=== PATIENT | female | born 1960 ===

== ENCOUNTER → 2020-06-08 13:13 | Outpatient (BNVA) | payer OTHER, SELFPAY | PROVIDERS: PCP Internal Medicine; Visit Provider Internal Medicine Endocrinology, Diabetes & Metabolism | DX: E11.9 Type 2 diabetes mellitus without complications (principal); E11.21 Type 2 diabetes mellitus with diabetic nephropathy; E11.22 Type 2 diabetes mellitus with diabetic chronic kidney disease; I12.9 Hypertensive chronic kidney disease with stage 1 through stage 4 chronic kidney disease, or unspecified chronic kidney disease; N18.30 Chronic kidney disease, stage 3 unspecified; E66.9 Obesity, unspecified; Z68.35 Body mass index [BMI] 35.0-35.9, adult | CPT/HCPCS: 82947; 99214 ==

== ENCOUNTER 2020-07-02 12:10 | Emergency (ER) | payer OTHER, SELFPAY ==
[2020-07-02 12:26] VITALS: BP 116/67; PULSE 88; RESP 18; TEMP 37; O2SAT 99; BMI 34.7
--- NOTE | 2020-07-02 13:15 | ED.URI ---
HPI - URI/Sore Throat General Chief Complaint: Upper Respiratory Symptoms Stated Complaint: covid swab Time Seen by Provider: 07/02/20 13:15 Source: patient Mode of arrival: ambulatory Limitations: no limitations History of Present Illness MD elicited complaint: fever and other (diarrhea) Pertinent past history: other ( has covid) Onset (ago): day(s) (3) Consistency: constant Severity: moderate Able to tolerate fluids by mouth: Yes Exacerbating factors: nothing Relieving factors: nothing Context: sick contacts Associated symptoms: fever, chills, myalgias, headache and diarrhea Treatments prior to arrival: none Related Data Home Medications Medication Instructions Recorded Confirmed loratadine 10 mg tablet 10 mg PO DAILY 06/08/20 06/08/20 Previous Rx's Medication Instructions Recorded cholecalciferol (vitamin D3) 50 50 mcg PO DAILY 30 Days #30 cap 06/08/20 mcg (2,000 unit) capsule dapagliflozin 10 mg-metformin ER 1 tab PO DAILY 30 Days #30 ea 06/08/20 1,000 mg tablet,extended release 24hr lisinopril 10 mg tablet 10 mg PO DAILY 30 Days #30 tab 06/08/20 pioglitazone 45 mg tablet 45 mg PO DAILY 30 Days #30 tab 06/08/20 pravastatin 40 mg tablet 40 mg PO DAILY 30 Days #30 tab 06/08/20 Allergies Allergy/AdvReac Type Severity Reaction Status Date / Time Penicillins Allergy Weakness Verified 07/02/20 12:31 Review of Systems Review of Systems: Constitutional : positive Fever, positive Chills, positive fatigue, positive Malaise ENT/Mouth : no sore throat, positive runny nose Eyes: No Discharge Cardiovascular : No Chest Pain, No SOB Respiratory : No Cough, No Sputum Gastrointestinal : No Nausea, No Vomiting, pos Diarrhea Genitourinary : No Dysuria, No Urinary Frequency Musculoskeletal : positive Myalgia Skin : No rash Neuro : No Headache PMFSH Past Medical History Attestation statement: The following information was validated with the patient. Medical History CKD (chronic kidney disease) stage 3, GFR 30-59 ml/min Diabetes type 2, controlled Diabetic nephropathy associated with type 2 diabetes mellitus Dyslipidemia Hypertension Obesity (BMI 30-39.9) Vitamin D deficiency Surgical History Hx of colonoscopy Hx of knee surgery Hx of tubal ligation Family History Family History (Updated 06/08/20 @ 12:03 by Patricia Drake LPN) Father No problems noted. Mother Cancer Social History Social History (Updated 07/02/20 @ 13:21 by Demi Sepulveda DO) Smoking Status: Never smoker Advance Directives: No Advance Directives Information Provided: No Physical Exam Vital Signs: Vital Signs: Last Vital Signs Temp 98.6 F 07/02/20 12:26 Pulse 88 07/02/20 12:26 Resp 18 07/02/20 12:26 BP 116/67 07/02/20 12:26 Pulse Ox 99 07/02/20 12:26 Body Mass Index 34.7 Appearance: Alert. Oriented X3. No acute distress. Eyes: Pupils equal, round and reactive to light. Neck: Normal inspection. Neck supple. Respiratory: No respiratory distress. Abdomen: Soft and nontender. Skin: Skin warm and dry. Normal skin color. Normal skin turgor. Neuro: Oriented X 3. No motor deficit. No sensory deficit. MDM - URI/Sore Throat MDM Narrative Medical decision making narrative: 59 yo with DM here with fevers/diarrhea not toxic, no hypoxia can tolerate PO, has COVID and the patient wants a test, given precautions to return Discharge Plan Discharge Clinical Impression: COVID-19 Patient Disposition: Home, Self-Care Instructions: COVID-19 (Coronavirus Disease 2019) (ED) Additional Instructions: return to ED for any worsening symptoms or concerns you were tested for COVID we will call you with results in 2 to 4 days, wear a mask, socially distance Prescriptions: No Action loratadine 10 mg tablet 10 mg PO DAILY RF: 0 dapagliflozin-metformin 10-1,000 mg tablet, IR - ER, biphasic 24hr 1 tab PO DAILY 30 Days Qty: 30 RF: 6 pioglitazone 45 mg tablet 45 mg PO DAILY 30 Days Qty: 30 RF: 6 lisinopril 10 mg tablet 10 mg PO DAILY 30 Days Qty: 30 RF: 6 pravastatin 40 mg tablet 40 mg PO DAILY 30 Days Qty: 30 RF: 6 cholecalciferol (vitamin D3) 50 mcg (2,000 unit) capsule 50 mcg PO DAILY 30 Days Qty: 30 RF: 6
== END 2020-07-02 13:42 | disposition home or self-care (01) ==
PROVIDERS: Emergency Provider Emergency Medicine; PCP Internal Medicine
DX: U07.1 COVID-19 (principal); R50.9 Fever, unspecified; Z79.899 Other long term (current) drug therapy
CPT/HCPCS: 99283; U0003

== ENCOUNTER 2020-07-08 20:45 | Emergency (ER) | payer OTHER, SELFPAY ==
[2020-07-08 22:51] VITALS: BP 143/68; PULSE 113; RESP 18; TEMP 37.7; O2SAT 95; BMI 36.2
--- NOTE | 2020-07-08 23:01 | ED_ITS ---
HPI - SOB/Dyspnea General Chief Complaint: Dyspnea Stated Complaint: SOB Time Seen by Provider: 07/08/20 22:49 History of Present Illness HPI Narrative: patient is a 59-year-old female complaining of coughing upper respiratory symptoms that is been ongoing for about a week. Tested positive for coronavirus. Patient presented today with having increasing coughing generalized malaise. Patient from home. History of chronic renal disease history of diabetes. positive fever. Positive generalized malaise. Has been also has similar symptoms. No diarrhea. Related Data Home Medications Medication Instructions Recorded Confirmed loratadine 10 mg tablet 10 mg PO DAILY 06/08/20 06/08/20 Previous Rx's Medication Instructions Recorded cholecalciferol (vitamin D3) 50 50 mcg PO DAILY 30 Days #30 cap 06/08/20 mcg (2,000 unit) capsule dapagliflozin 10 mg-metformin ER 1 tab PO DAILY 30 Days #30 ea 06/08/20 1,000 mg tablet,extended release 24hr lisinopril 10 mg tablet 10 mg PO DAILY 30 Days #30 tab 06/08/20 pioglitazone 45 mg tablet 45 mg PO DAILY 30 Days #30 tab 06/08/20 pravastatin 40 mg tablet 40 mg PO DAILY 30 Days #30 tab 06/08/20 Allergies Allergy/AdvReac Type Severity Reaction Status Date / Time Penicillins Allergy Weakness Verified 07/02/20 12:31 Review of Systems Review of Systems: Constitutional: No Weight loss, Positive Fever, No Chills, No Night Sweats, No Fatigue, No Malaise ENT/Mouth: No Hearing loss, No Ear Pain, No Nasal Congestion, No Sinus Pain, No Hoarseness, No sore throat, No Rhinorrhea, No Swallowing Difficulty Eyes: No Eye Pain, No Swelling, No Redness, No Foreign Body, No Discharge, No Vision Changes Cardiovascular: No Chest Pain, positive SOB, No Dyspnea on Exertion, No Orthopnea, No Edema, No Palpitations Respiratory: positive Cough, No Sputum, No Wheezing, No Smoke Exposure, No Dyspnea Gastrointestinal: No Nausea, No Vomiting, No Diarrhea, No Constipation, No abdominal Pain, No Hematochezia, No Melena Genitourinary: no irregular bleeding, No Dysuria, No Urinary Frequency, No Hematuria, No Urinary Incontinence, No Urgency, No Flank Pain, No Urinary Flow Changes, No Hesitancy Musculoskeletal: No joint pain, No Myalgias, No Joint Swelling Skin: No Skin Lesions, No rash Neuro: No Weakness, No Numbness, No Paresthesias, No Loss of Consciousness, No Dizziness, No Headache Psych: No Anxiety/Panic, No Depression, No SI/HI/AH/VH, No Social Issues, Heme/Lymph: No Bruising, No Bleeding,No Lymphadenopathy Endocrine: No Polyuria, No Polydipsia, No Temperature Intolerance [facility] Past Medical History Attestation statement: The following information was validated with the patient. Medical History CKD (chronic kidney disease) stage 3, GFR 30-59 ml/min Diabetes type 2, controlled Diabetic nephropathy associated with type 2 diabetes mellitus Dyslipidemia Hypertension Obesity (BMI 30-39.9) Vitamin D deficiency Surgical History Hx of colonoscopy Hx of knee surgery Hx of tubal ligation Family History Family History (Updated 06/08/20 @ 12:03 by Patricia Drake LPN) Father No problems noted. Mother Cancer Social History Social History (Updated 07/02/20 @ 13:21 by Demi Sepulveda DO) Smoking Status: Never smoker Advance Directives: No Physical Exam Vital Signs: Vital Signs: Last Vital Signs Temp 101.1 F H 07/08/20 23:39 Pulse 116 H 07/08/20 23:39 Resp 32 H 07/08/20 23:39 BP 115/70 07/08/20 23:39 Pulse Ox 95 07/08/20 23:39 Body Mass Index 36.2 Appearance: Alert. Oriented X3. No acute distress. Eyes: Pupils equal, round and reactive to light. ENT: Pharynx normal. Neck: Normal inspection. Neck supple. No lymph nodes noted. No crepitus CVS: Normal heart rate and rhythm. Pulses normal. Normal S1 and S2 Respiratory: No respiratory distress. Breath sounds normal. No Wheezing. No rales Abdomen: Soft and nontender. No rigidity. No distention. good BS x4 Skin: Skin warm and dry. Normal skin color. Normal skin turgor. Extremities: No lower extremity edema. Neurovascular intact to all extremities. No Lacerations. No Rash Neuro: Oriented X 3. No motor deficit. No sensory deficit. Moving all extermities. No slurred speech MDM - SOB/Dyspnea MDM Narrative Medical decision making narrative: patient has Coronavirus with a heart rate of 113 low-grade fever. Will go ahead and give IV fluids. Will check electrolytes and monitor. On the positive side patient's O2 sat is 95% on room Lab Data Result diagrams: 07/08/20 23:56 07/08/20 23:56 Labs: Lab Results 07/08/20 07/08/20 07/08/20 Range/Units 23:56 23:56 23:56 WBC 7.7 (4.8-10.8) X10*3/uL RBC 4.52 (4.20-5.50) X10*6/uL Hgb 13.1 (12.0-16.0) g/dl Hct 39.9 (37-47) % MCV 88.3 (80-98) fL MCH 29.0 (27.0-33.0) pg MCHC 32.8 (31.0-35.0) g/dl RDW 13.7 (11.0-16.0) % Plt Count 246 (160-400) X10*3/uL MPV 10.0 (9.4-12.3) fL Immature Gran % (Auto) 0.5 H (0.0-0.4) % Neut % (Auto) 77.0 H (45-73) % Lymph % (Auto) 16.1 L (20-40) % [place] % (Auto) 6.3 (2-11) % Eos % (Auto) 0.0 (0-4) % Baso % (Auto) 0.1 (0-2) % Lymph # (Auto) 1.2 (1.2-4.9) X10*3/uL [place] # (Auto) 0.5 (0.1-1.2) X10*3/uL Eos # (Auto) 0.0 (0.0-0.4) X10*3/uL Baso # (Auto) 0.0 (0.0-0.2) X10*3/uL Abs Immat Gran (auto) 0.04 H (0.00-0.03) X10*3/uL Absolute Neuts (auto) 5.9 (2.0-8.3) X10*3/uL Absolute Nucleated RBC 0.000 (0.0-0.012) X10*3/uL Nucleated RBC % (auto) 0.0 (0.0-0.2) /100WBC Smear Tech's Comments VERIFIED Hold Blue Top SEE NOTE Sodium (135-145) mmol/L Potassium (3.3-5.1) mmol/l Chloride (96-108) mmol/L Carbon Dioxide (22-29) mmol/L Anion Gap (12-20) BUN (9-16) mg/dL Creatinine (0.5-1.4) mg/dL Estim Creat Clear Calc Estimated GFR Random Glucose (60-115) mg/dL Lactic Acid 1.0 (0.5-2.0) mmol/L Calcium (8.4-10.2) mg/dL 07/08/20 Range/Units 23:56 WBC (4.8-10.8) X10*3/uL RBC (4.20-5.50) X10*6/uL Hgb (12.0-16.0) g/dl Hct (37-47) % MCV (80-98) fL MCH (27.0-33.0) pg MCHC (31.0-35.0) g/dl RDW (11.0-16.0) % Plt Count (160-400) X10*3/uL MPV (9.4-12.3) fL Immature Gran % (Auto) (0.0-0.4) % Neut % (Auto) (45-73) % Lymph % (Auto) (20-40) % [place] % (Auto) (2-11) % Eos % (Auto) (0-4) % Baso % (Auto) (0-2) % Lymph # (Auto) (1.2-4.9) X10*3/uL [place] # (Auto) (0.1-1.2) X10*3/uL Eos # (Auto) (0.0-0.4) X10*3/uL Baso # (Auto) (0.0-0.2) X10*3/uL Abs Immat Gran (auto) (0.00-0.03) X10*3/uL Absolute Neuts (auto) (2.0-8.3) X10*3/uL Absolute Nucleated RBC (0.0-0.012) X10*3/uL Nucleated RBC % (auto) (0.0-0.2) /100WBC Smear Tech's Comments Hold Blue Top Sodium 138 (135-145) mmol/L Potassium 4.6 (3.3-5.1) mmol/l Chloride 102 (96-108) mmol/L Carbon Dioxide 22 (22-29) mmol/L Anion Gap 19 (12-20) BUN 16 (9-16) mg/dL Creatinine 1.08 (0.5-1.4) mg/dL Estim Creat Clear Calc 56.2 Estimated GFR 52 Random Glucose 121 H (60-115) mg/dL Lactic Acid (0.5-2.0) mmol/L Calcium 8.6 (8.4-10.2) mg/dL Discharge Plan Discharge Clinical Impression: COVID-19 Patient Disposition: Home, Self-Care Instructions: COVID-19 (Coronavirus Disease 2019) (ED) Additional Instructions: strict home quarantine until all symptom has resolved for 2 days. Prescriptions: No Action loratadine 10 mg tablet 10 mg PO DAILY RF: 0 dapagliflozin-metformin 10-1,000 mg tablet, IR - ER, biphasic 24hr 1 tab PO DAILY 30 Days Qty: 30 RF: 6 pioglitazone 45 mg tablet 45 mg PO DAILY 30 Days Qty: 30 RF: 6 lisinopril 10 mg tablet 10 mg PO DAILY 30 Days Qty: 30 RF: 6 pravastatin 40 mg tablet 40 mg PO DAILY 30 Days Qty: 30 RF: 6 cholecalciferol (vitamin D3) 50 mcg (2,000 unit) capsule 50 mcg PO DAILY 30 Days Qty: 30 RF: 6 Referrals: Physician,Unknown [Primary Care Provider] - 2 days Print Language: Croatian
--- NOTE | 2020-07-08 23:03 | XR_ITS ---
EXAMINATION: XR CHEST CLINICAL INFORMATION: Shortness of breath COMPARISON: 08/01/2014 TECHNIQUE: Frontal view of the chest was obtained. FINDINGS: The lungs are hypoinflated. No definite consolidation is seen. There may be a few mild curvilinear regions of atelectasis towards the lung bases. No evidence of pneumothorax, significant pleural effusion, or overt pulmonary edema. The cardiomediastinal contour is unremarkable. No acute osseous findings are seen. XR/XR chest 1V IMPRESSION: Low lung volumes without focal consolidation.
[2020-07-08 23:39] VITALS: BP 115/70; PULSE 116; RESP 32; TEMP 38.4; O2SAT 95
[2020-07-08] MEDS: 0.9 % Sodium Chloride 1,000 ML 999 ML IVCONT (23:59)
[2020-07-09] VITALS: BP 107/52; PULSE 99; RESP 24; O2SAT 93
[2020-07-09] MEDS: Acetaminophen 325 MG TABLET 650 MG PO (00:04)
[2020-07-09 00:12] LABS: Basophils Percent Auto 0.1 % (0-2); Hematocrit 39.9 % (37-47); Hemoglobin 13.1 g/dl (12.0-16.0); Imm Gran Abs Auto 0.04 X10*3/uL (0.00-0.03); Imm Gran Pct Auto 0.5 % (0.0-0.4); Lymphocytes Absolute Auto 1.2 X10*3/uL (1.2-4.9); Lymphocytes Percent Auto 16.1 % (20-40); MANUAL DIFF FLAG SCAN; Mean Corpuscular HGB Conc 32.8 g/dl (31.0-35.0); Mean Corpuscular Volume 88.3 fL (80-98); Monocytes Absolute Auto 0.5 X10*3/uL (0.1-1.2); Monocytes Percent Auto 6.3 % (2-11); Neutrophils Absolute Auto 5.9 X10*3/uL (2.0-8.3); Platelet Count 246 X10*3/uL (160-400); Red Blood Count 4.52 X10*6/uL (4.20-5.50); Red Cell Distribution Width 13.7 % (11.0-16.0); SCAN SMEAR FLAG 1; White Blood Count 7.7 X10*3/uL (4.8-10.8)
[2020-07-09 00:28] LABS: Anion Gap 19 (12-20); Blood Urea Nitrogen 16 mg/dL (9-16); Calcium 8.6 mg/dL (8.4-10.2); Carbon Dioxide 22 mmol/L (22-29); Chloride 102 mmol/L (96-108); Creatinine Clr Calc Pharmacy 56.2; Estimated Glomerular Filt Rate 52; Glucose Random 121 mg/dL (60-115); Potassium 4.6 mmol/l (3.3-5.1); Sodium 138 mmol/L (135-145)
[2020-07-09 01:18] LABS: SLIDE REVIEW VERIFIED
[2020-07-09 01:29] VITALS: BP 107/62; PULSE 105; RESP 24; O2SAT 93
--- NOTE | 2020-07-09 01:38 | PC.NURSE ---
pt is ready for discharge waiting on ivf to complete.
[2020-07-09 02:00] VITALS: BP 108/59; PULSE 95
--- NOTE | 2020-07-09 03:13 | PC.NURSE ---
PT SLEEPING [facility] IVF AND READY FOR DISCHARGE.
[2020-07-09 03:16] VITALS: BP 107/57; PULSE 95; RESP 18; TEMP 37.7
== END 2020-07-09 03:23 | disposition home or self-care (01) ==
PROVIDERS: Emergency Provider Emergency Medicine Emergency Medical Services
DX: U07.1 COVID-19 (principal); R06.00 Dyspnea, unspecified; I12.9 Hypertensive chronic kidney disease with stage 1 through stage 4 chronic kidney disease, or unspecified chronic kidney disease; E11.22 Type 2 diabetes mellitus with diabetic chronic kidney disease; N18.2 Chronic kidney disease, stage 2 (mild); Z79.899 Other long term (current) drug therapy; Z20.828 Contact with and (suspected) exposure to other viral communicable diseases
CPT/HCPCS: 36415; 71045; 80048; 83605; 85025; 87040; 96360; 99284

== ENCOUNTER → 2020-11-08 12:45 | Outpatient (BNVA) | payer OTHER, SELFPAY | PROVIDERS: PCP Internal Medicine; Visit Provider Internal Medicine Endocrinology, Diabetes & Metabolism | DX: E11.21 Type 2 diabetes mellitus with diabetic nephropathy (principal); I12.9 Hypertensive chronic kidney disease with stage 1 through stage 4 chronic kidney disease, or unspecified chronic kidney disease; N18.30 Chronic kidney disease, stage 3 unspecified; E78.5 Hyperlipidemia, unspecified; E55.9 Vitamin D deficiency, unspecified; E66.9 Obesity, unspecified | CPT/HCPCS: 82947; 99212 ==

== ENCOUNTER 2021-01-18 10:00 | Outpatient (REF) | payer OTHER, SELFPAY ==
[2021-01-18 11:02] LABS: Hematocrit 35.8 % (37-47); Hemoglobin 11.6 g/dl (12.0-16.0); Mean Corpuscular HGB Conc 32.4 g/dl (31.0-35.0); Mean Corpuscular Hemoglobin 29.4 pg (27.0-33.0); Mean Corpuscular Volume 90.9 fL (80-98); Mean Platelet Volume 9.9 fL (9.4-12.3); Platelet Count 252 X10*3/uL (160-400); Red Blood Count 3.94 X10*6/uL (4.20-5.50); Red Cell Distribution Width 13.8 % (11.0-16.0); White Blood Count 5.9 X10*3/uL (4.8-10.8)
[2021-01-18 11:14] LABS: Estimated Average Glucose 128 mg/dL; Hemoglobin A1c % 6.1 %
[2021-01-18 11:24] LABS: Alanine Aminotransferase 17 U/L (0-31); Albumin Level 4.2 g/dL (3.5-5.0); Alkaline Phosphatase 98 U/L (39-117); Anion Gap 14 (12-20); Aspartate Amino Transferase 19 U/L (5-31); Bilirubin Total 0.6 mg/dL (0.0-1.0); Blood Urea Nitrogen 23 mg/dL (9-16); Calcium 9.4 mg/dL (8.4-10.2); Carbon Dioxide 24 mmol/L (22-29); Chloride 107 mmol/L (96-108); Cholesterol 177 mg/dL; Estimated Glomerular Filt Rate > 60; Glucose Fasting 123 mg/dL (60-99); HDL Cholesterol 62 mg/dL; LDL Cholesterol Calculated 95 mg/dl; Potassium 4.5 mmol/L (3.3-5.1); Sodium 140 mmol/L (135-145); Total Protein 7.2 g/dL (6.5-8.0); Triglycerides 101 mg/dL
[2021-01-18 11:39] LABS: Vitamin B12 482 pg/mL (200-900)
[2021-01-18 12:00] LABS: Creatinine Urine 70.81 mg/dL; Microalbum/Creatinine Ratio Ur 8.4 ug/mg cr
[2021-01-19 07:56] LABS: LDL Cholesterol Direct 90 mg/dL (<100)
== END 2021-01-18 10:01 | disposition home or self-care (01) ==
LOC: HO.LAB 10:00
PROVIDERS: Internal Medicine Endocrinology, Diabetes & Metabolism; PCP Internal Medicine; Visit Provider Internal Medicine
DX: E11.9 Type 2 diabetes mellitus without complications (principal); E55.9 Vitamin D deficiency, unspecified
CPT/HCPCS: 36415; 80053; 80061; 82043; 82607; 83036; 83721; 85027

== ENCOUNTER 2021-06-10 11:19 | Outpatient (REF) | payer OTHER, SELFPAY ==
--- NOTE | ~2021-06-10 | MM_ITS ---
EXAMINATION: MM SCREENING DIGITAL BREAST TOMOSYNTHESIS, BILATERAL CLINICAL INFORMATION: Screening. Asymptomatic. The lifetime risk of breast cancer based on the Tyrer-Cuzick Model is 6%. COMPARISON: Mammography: 05/15/2018, 12/25/2016, 12/24/2015, 10/13/2014 TECHNIQUE: Digital breast tomosynthesis is performed in both the craniocaudal and mediolateral oblique views along with computer-aided detection (CAD). Synthesized 2D images are generated from the tomosynthesis. Additional right MLO view is provided. FINDINGS: There are scattered areas of fibroglandular density (ACR BI-RADS breast composition Category b). There are no significant masses, abnormal calcifications, or other abnormalities. Parenchymal pattern is similar to prior exams. No developing density. The axilla and skin contours are unremarkable. MM/MM tomosynthesis screening BI IMPRESSION: No mammographic evidence of malignancy. ASSESSMENT: BI-RADS 1: Negative RECOMMENDATION: Routine annual mammography screening. This patient's information was entered into a reminder system with a target due date for their next mammogram.
== END 2021-06-10 11:20 | disposition home or self-care (01) ==
LOC: HO.MAMMO 11:19
PROVIDERS: Visit Provider Internal Medicine
DX: Z12.31 Encounter for screening mammogram for malignant neoplasm of breast (principal)
CPT/HCPCS: 77063; 77067

== ENCOUNTER → 2021-06-20 12:39 | Outpatient (BNVA) | payer OTHER, SELFPAY | PROVIDERS: PCP Internal Medicine; Visit Provider Nurse Practitioner Gerontology | DX: E11.29 Type 2 diabetes mellitus with other diabetic kidney complication (principal); E11.21 Type 2 diabetes mellitus with diabetic nephropathy; E78.5 Hyperlipidemia, unspecified; E55.9 Vitamin D deficiency, unspecified; E66.09 Other obesity due to excess calories; R80.9 Proteinuria, unspecified; I10 Essential (primary) hypertension | CPT/HCPCS: 82947; 99212 ==

== ENCOUNTER 2022-08-09 12:11 | Outpatient (REF) | payer OTHER, SELFPAY | END 2022-08-09 12:12 | disposition home or self-care (01) | LOC: HO.MAMMO 12:11 | PROVIDERS: PCP Internal Medicine; Visit Provider Internal Medicine | DX: Z12.31 Encounter for screening mammogram for malignant neoplasm of breast (principal) | CPT/HCPCS: 77063; 77067 ==

== ENCOUNTER 2023-01-18 11:46 | Outpatient (REF) | payer OTHER, SELFPAY ==
[2023-01-18 11:58] LABS: MANUAL DIFF FLAG NO
[2023-01-18 12:47] LABS: Basophils Absolute Auto 0.1 X10*3/uL (0.0-0.2); Basophils Percent Auto 1.2 % (0-2); Eosinophils Absolute Auto 0.3 X10*3/uL (0.0-0.4); Eosinophils Percent Auto 3.5 % (0-4); Hemoglobin 13.8 g/dl (12.0-16.0); Imm Gran Abs Auto 0.04 X10*3/uL (0.00-0.03); Imm Gran Pct Auto 0.5 % (0.0-0.4); Lymphocytes Absolute Auto 2.8 X10*3/uL (1.2-4.9); Lymphocytes Percent Auto 33.9 % (20-40); Mean Corpuscular HGB Conc 32.1 g/dl (31.0-35.0); Mean Corpuscular Volume 87.4 fL (80.0-98.0); Mean Platelet Volume 10.5 fL (9.4-12.3); Monocytes Absolute Auto 0.6 X10*3/uL (0.1-1.2); Monocytes Percent Auto 7.2 % (2-11); Neutrophils Absolute Auto 4.5 x10*3/uL (2.0-8.3); Neutrophils Percent Auto 53.7 % (45-73); Platelet Count 268 X10*3/uL (160-400); Red Blood Count 4.92 X10*6/uL (4.20-5.50); Red Cell Distribution Width 13.6 % (11.0-16.0); White Blood Count 8.3 X10*3/uL (4.8-10.8)
[2023-01-18 12:54] LABS: Estimated Average Glucose 194 mg/dL; Hemoglobin A1c % 8.4 %
[2023-01-18 13:21] LABS: Alanine Aminotransferase 26 U/L (0-31); Albumin Level 4.2 g/dL (3.5-5.0); Alkaline Phosphatase 130 U/L (39-117); Anion Gap 18 (12-20); Aspartate Amino Transferase 25 U/L (5-31); Bilirubin Total 0.9 mg/dL (0.0-1.0); Blood Urea Nitrogen 18 mg/dL (9-16); Calcium 9.8 mg/dL (8.4-10.2); Carbon Dioxide 19 mmol/L (22-29); Chloride 105 mmol/L (96-108); Cholesterol 170 mg/dL; Estimated Glomerular Filt Rate 54; Glucose Fasting 208 mg/dL (60-99); HDL Cholesterol 54 mg/dL; LDL Cholesterol Calculated 85 mg/dl; Potassium 4.5 mmol/L (3.3-5.1); Sodium 137 mmol/L (135-145); Total Protein 7.8 g/dL (6.5-8.0); Triglycerides 157 mg/dL
== END 2023-01-18 11:47 | disposition home or self-care (01) ==
LOC: HO.LAB 11:46
PROVIDERS: PCP Internal Medicine; Visit Provider Internal Medicine
DX: E78.5 Hyperlipidemia, unspecified (principal); E11.9 Type 2 diabetes mellitus without complications; E03.9 Hypothyroidism, unspecified; I10 Essential (primary) hypertension; Z13.0 Encounter for screening for diseases of the blood and blood-forming organs and certain disorders involving the immune mechanism
CPT/HCPCS: 36415; 80053; 80061; 83036; 84443; 85025

== ENCOUNTER 2023-05-03 11:12 | Outpatient (AMB) | payer OTHER, SELFPAY ==
[2023-05-03 11:15] VITALS: BP 100/60; PULSE 95; O2SAT 97; BMI 35.8
--- NOTE | 2023-05-03 11:15 | A.OFFPC_ITS ---
Vital Signs 05/03/23 11:15 Height 5 ft 2 in Weight 196 lb BMI 35.8 BP 100/60 Blood Pressure Location Lt brachial Position Sitting Pulse 95 Pulse Source Pulse Oximeter Pulse Oximetry (%) 97 Oxygen Delivery Method Room Air Intake Visit Reasons: 3 month f/u [facility] Plans Staff Officer: Not Required per policy Accompanied by: Self / Same As Patient Allergies Penicillins Allergy (Verified 05/03/23 11:15) Weakness Medication List - Last Reconciled 05/03/23 by Saw Kern MD blood sugar diagnostic (FreeStyle Lite Strips) As directed two times a day blood-glucose meter (FreeStyle Lite Meter kit) As directed two times a day cholecalciferol (vitamin D3) 50 mcg PO DAILY dapaglifloz propaned-metformin 10-1,000 mg ER (Xigduo XR) 1 tab PO DAILY lancets (FreeStyle Lancets) As directed two times a day lisinopril 10 mg PO DAILY loratadine 10 mg PO DAILY pioglitazone 45 mg PO DAILY pravastatin 40 mg PO DAILY Tobacco use date assessed: 01/29/23 Dental Screening Dental Screen Date: 05/03/23 Did you have a dental visit in the last 12 months?: Yes Did you have a dental problem in the last 6 months where you did not have access to dental care?: No Was dental information given to patient?: Patient has dentist HPI 3 month f/u HPI Details DM HTN hyperlipidemia on rx; doing well; compliant [facility] Medical History Obesity due to excess calories Hyperlipidemia associated with type 2 diabetes mellitus Obesity Diabetes mellitus Obesity (BMI 30-39.9) Vitamin D deficiency Dyslipidemia Hypertension CKD (chronic kidney disease) stage 3, GFR 30-59 ml/min Diabetic nephropathy associated with type 2 diabetes mellitus Diabetes type 2, controlled Surgical History Hx of knee surgery Hx of colonoscopy Hx of tubal ligation Family History Father No problems noted. Mother Cancer Social History Housing: Apartment Alcohol intake: current Alcohol intake frequency: holidays/special occasions only Patient Tobacco Use Status: Never used Tobacco e-Cigarette/Vaping Use: Never Used Second Hand Smoke Exposure: No service: No Current occupational status: disabled Cognitive needs: No Hearing needs: No Vision needs: No Questionnaire PHQ-9 Over the last 2 weeks, how often have you been bothered by any of the following problems? 1. Little interest or pleasure in doing things: not at all 2. Feeling down, depressed, or hopeless: not at all 3. Trouble falling or staying asleep, or sleeping too much: not at all 4. Feeling tired or having little energy: not at all 5. Poor appetite or overeating: not at all 6. Feeling bad about yourself - or that you are a failure or have let yourself or your family down: not at all 7. Trouble concentrating on things, such as reading the newspaper or watching television: not at all 8. Moving or speaking so slowly that other people could have noticed. Or the opposite - being so fidgety or restless that you have been moving around a lot more than usual: not at all 9. Thoughts that you would be better off or of hurting yourself in some way: not at all Total score: 0 Depression Screening Interpretation: Negative 74438 - PHQ-9 Billing: Yes Source: Developed by Drs. Chris Coleman, Stacey Salguero, Rigo Cason and colleagues, with an educational oneal from [employer]. Thrive Questionnaire Date Thrive assessed: 01/29/23 AUDIT C Alcohol Use Questionnaire (AUDIT-C) 1. How often do you have a drink containing alcohol?: Never Total Score: 0 Score Reviewed/Action Taken: Yes ELYSE-7 AMB Questionnaire ELYSE-7 Date ELYSE - 7 assessed: 01/29/23 Source: Developed by Drs. Chris Coleman, Rigo Alonso and colleagues, with an educational oneal from [employer]. Review of Systems Const Denies chills, Denies headache(s) and Denies weight loss ENT Denies headache(s) Card Denies chest pain, Denies syncope, Denies irregular heart rhythm and Denies dyspnea Resp Denies chest congestion, Denies cough and Denies dyspnea GI Denies abdominal pain, Denies change in stool character, Denies nausea and Denies vomiting Musc Denies deformity and Denies joint swelling Neuro Denies syncope and Denies headache(s) Physical exam (Primary Care) Vital Signs: Last Vital Signs Pulse 95 05/03/23 11:15 BP 100/60 05/03/23 11:15 Pulse Ox 97 05/03/23 11:15 Oxygen Delivery Method Room Air 05/03/23 11:15 BMI result Body Mass Index 35.8 Tobacco/Smoking Status: Tobacco use Status Tobacco use date assessed 01/29/23 05/03/23 11:17 Patient Tobacco Use Status Never used Tobacco 05/03/23 11:17 e-Cigarette/Vaping Use Never Used 05/03/23 11:17 PHQ-9: PHQ-9 Score PHQ-9: Total score 0 05/03/23 11:36 Depression Screening Interpretation: Negative Thrive Assessment: Date of Thrive Assessment Date Thrive assessed 01/29/23 05/03/23 11:17 Const General: cooperative, comfortable, no acute distress and alert Neck Neck: Yes no lymphadenopathy Thyroid: Thyroid normal Resp Effort & Inspection: normal respiratory effort Auscultation: clear to auscultation bilaterally Percussion: percussion normal Cardio Jugular venous distension: no JVD Palpation: normal PMI Rate: regular rate Rhythm: regular rhythm Heart sounds: S1 normal heart sound present and S2 normal heart sound present GI Inspection: Yes normal to inspection Palpation (GI): No hepatosplenomegaly present Skin General skin exam: no rashes or lesions noted Extrem General: Yes no clubbing, cyanosis or edema Results AMB Hemoglobin A1c AMB Hemoglobin A1c 9.0 % Last Edit by ZAFAR Donaldson on 05/03/23 11:36 Results Reviewed Results Reviewed: Laboratory Last Values Hgb A1c (Clinic) 9.0 % (4.0-6.0) H 05/03/23 11:18 Assessment and Plan Assessment & Plan (1) Diabetes type 2, controlled: Code(s): E11.9 - Type 2 diabetes mellitus without complications Qualifiers: Diabetes mellitus complication detail: with microalbuminuria Diabetes mellitus complication status: with kidney complications Diabetes mellitus nursing home insulin use: without senior professional services consultant use Qualified Code(s): E11.29 - Type 2 diabetes mellitus with other diabetic kidney complication; R80.9 - Proteinuria, unspecified Plan: stable; same rx; do labs (2) Hypertension: Code(s): I10 - Essential (primary) hypertension Plan: stable; same rx (3) Dyslipidemia: Code(s): E78.5 - Hyperlipidemia, unspecified Plan: stable ;same rx Orders: Orders AMB Hemoglobin A1c Today E11.9 - Type 2 diabetes mellitus without complications XR lumbar spine 2-3V Today M54.9 - Dorsalgia, unspecified Thyroid Stimulating Hormone Today E03.9 - Hypothyroidism, unspecified Lipid Panel Today E78.5 - Hyperlipidemia, unspecified Coding Level of Care Code Est Pt Level 4 (69945) Diagnoses Controlled type 2 diabetes mellitus with microalbuminuria, without long-term current use of insulin E11.29; R80.9 Diabetes mellitus complication detail: with microalbuminuria Diabetes mellitus complication status: with kidney complications Diabetes mellitus nursing home insulin use: without nursing home use Hypertension I10 Dyslipidemia E78.5
== END 2023-05-03 11:34 | disposition home or self-care (01) ==
PROVIDERS: PCP Internal Medicine; Visit Provider Internal Medicine
DX: E11.29 Type 2 diabetes mellitus with other diabetic kidney complication (principal); R80.9 Proteinuria, unspecified; I10 Essential (primary) hypertension; E78.5 Hyperlipidemia, unspecified
CPT/HCPCS: 83036; 99214

== ENCOUNTER 2023-05-03 11:54 | Outpatient (REF) | payer OTHER, SELFPAY ==
--- NOTE | ~2023-05-03 | XR_ITS ---
EXAMINATION: XR LUMBOSACRAL SPINE CLINICAL INFORMATION: Back pain COMPARISON: 10/23/2016 FINDINGS: Slight leftward curvature of the lumbar spine. Facet arthritis in the lower lumbar spine. Mild multilevel lumbar spondylosis with small osteophytes. Lumbar disc space heights are grossly preserved. XR/XR lumbar spine 2-3V IMPRESSION: Facet arthritis in the lower lumbar spine. Mild multilevel lumbar spondylosis.
== END 2023-05-03 11:55 | disposition home or self-care (01) ==
LOC: HO.XRAY 11:54
PROVIDERS: PCP Internal Medicine; Visit Provider Internal Medicine
DX: M54.9 Dorsalgia, unspecified (principal)
CPT/HCPCS: 72100

== ENCOUNTER 2023-10-16 15:16 | Outpatient (REF) | payer OTHER, SELFPAY ==
--- NOTE | ~2023-10-16 | MM_ITS ---
EXAMINATION: MM SCREENING DIGITAL BREAST TOMOSYNTHESIS, BILATERAL CLINICAL INFORMATION: Screening. Asymptomatic. COMPARISON: Mammography: This study is compared with prior exams dating back to 2015. TECHNIQUE: Digital breast tomosynthesis is performed in both the craniocaudal and mediolateral oblique views along with computer-aided detection (CAD). Synthesized 2D images are generated from the tomosynthesis. FINDINGS: There are scattered areas of fibroglandular density (ACR BI-RADS breast composition Category b). There are no significant masses, abnormal calcifications, or other abnormalities. MM/MM tomosynthesis screening BI IMPRESSION: No mammographic evidence of malignancy. ASSESSMENT: BI-RADS BI-RADS 1 - Negative RECOMMENDATION: Routine annual mammography screening. 1 year F/U This examination should not preclude the clinical evaluation of a suspicious palpable abnormality. This patient's information was entered into a reminder system with a target due date for their next mammogram.
== END 2023-10-16 15:17 | disposition home or self-care (01) ==
LOC: HO.MAMMO 15:16
PROVIDERS: PCP Internal Medicine; Visit Provider Internal Medicine
DX: Z12.31 Encounter for screening mammogram for malignant neoplasm of breast (principal)
CPT/HCPCS: 77063; 77067

== ENCOUNTER → 2023-10-16 15:30 | Outpatient (BNV) | payer OTHER, SELFPAY | PROVIDERS: PCP Internal Medicine; Visit Provider Radiology Diagnostic Radiology | DX: Z12.31 Encounter for screening mammogram for malignant neoplasm of breast (principal) | CPT/HCPCS: 77063; 77067 ==

== ENCOUNTER 2024-03-10 09:20 | Emergency (ER) | payer OTHER, SELFPAY ==
--- NOTE | ~2024-03-10 | XR_ITS ---
EXAMINATION: XR CHEST CLINICAL INFORMATION: Productive cough COMPARISON: Chest radiograph 07/08/2020 TECHNIQUE: 2 views of the chest were obtained. FINDINGS: The lungs are adequately expanded. No focal consolidation. No pleural effusion, edema or pneumothorax. The cardiomediastinal silhouette is unchanged. No acute osseous abnormality. Mild degenerative changes of thoracic spine. XR/XR chest 2V IMPRESSION: No acute pulmonary disease.
[2024-03-10 09:29] VITALS: BP 95/59; PULSE 105; RESP 18; TEMP 37.1; O2SAT 96; BMI 35.0
--- NOTE | 2024-03-10 09:41 | ED.GENADULT ---
HPI - General Adult General Chief complaint: Upper Respiratory Symptoms Stated complaint: Cough/Rib pain Time Seen by Provider: 03/10/24 09:35 Source: patient Mode of arrival: ambulatory Limitations: no limitations History of Present Illness ED Provider: Natalie RUBALCAVA narrative: Patient is a 63-year-old female with history of CKD stage 3, T2DM, HTN, obesity, HLD presenting to the emergency department with complaint of productive cough since . States that her son and friend who both live with her have been sick with similar symptoms. Subjective fever last night. Denies sore throat but states throat feels dry. Has been attempting to cough up her sputum, but this has been causing her to gag and vomit. Denies abdominal pain, nausea, vomiting otherwise, or diarrhea. Taking OTC Mucinex. Denies chest pain, palpitations. MD complaint: cough Onset (ago): day(s) Associated symptoms: headaches Treatments prior to arrival: other Related Data Home Medications ?Medication ?Instructions ?Recorded ?Confirmed blood-glucose meter (FreeStyle 06/21/21 05/03/23 Lite Meter kit) Previous Rx's ?Medication ?Instructions ?Recorded blood sugar diagnostic (FreeStyle #60 ea 06/21/21 Lite Strips) lancets 28 gauge (FreeStyle #60 ea 06/21/21 Lancets) lisinopril 10 mg tablet 10 mg PO DAILY #90 tabs 05/07/23 cholecalciferol (vitamin D3) 50 50 mcg PO DAILY #90 caps 05/09/23 mcg (2,000 unit) capsule pravastatin 40 mg tablet 40 mg PO DAILY #90 tabs 05/09/23 dapagliflozin propaned 10 1 tab PO DAILY #90 tabs 12/24/23 mg-metformin ER 1,000 mg tablet,ext rel 24hr (Xigduo XR) loratadine 10 mg tablet 10 mg PO DAILY #90 tabs 12/24/23 pioglitazone 45 mg tablet 45 mg PO DAILY #90 tabs 02/05/24 albuterol sulfate 90 mcg/actuation 2 puff inhalation Q4-6H PRN 03/10/24 aerosol inhaler shortness of breath or wheezing #6.7 grams benzonatate 100 mg capsule 100 mg PO TID PRN cough #14 caps 03/10/24 doxycycline hyclate 100 mg capsule 100 mg PO BID #10 caps 03/10/24 Allergies Allergy/AdvReac Type Severity Reaction Status Date / Time Penicillins Allergy Weakness Verified 03/10/24 09:31 Review of Systems Review of Systems: As per HPI. Yes all other systems are reviewed and are negative Constitutional: Constitutional: Reports as per HPI [facility] Past Medical History Medical History Obesity due to excess calories Hyperlipidemia associated with type 2 diabetes mellitus Obesity Diabetes mellitus Obesity (BMI 30-39.9) Vitamin D deficiency Dyslipidemia Hypertension CKD (chronic kidney disease) stage 3, GFR 30-59 ml/min Diabetic nephropathy associated with type 2 diabetes mellitus Diabetes type 2, controlled Surgical History Hx of knee surgery Hx of colonoscopy Hx of tubal ligation Family History Family History Father No problems noted. Mother Cancer Social History Social History Housing: Apartment Alcohol intake: current Alcohol intake frequency: holidays/special occasions only Patient Tobacco Use Status: Never used Tobacco e-Cigarette/Vaping Use: Never Used Second Hand Smoke Exposure: No Advance Directives: No Advance Directives Information Provided: Yes Do you have a plan to hurt others: No Plan service: No Current occupational status: disabled Cognitive needs: No Hearing needs: No Vision needs: No Physical Exam ED Vital Signs: Vital Signs - 24 hr 03/10/24 09:29 Temperature 98.7 F Pulse Rate 105 H Respiratory Rate 18 Blood Pressure 95/59 L Pulse Oximetry 96 Oxygen Delivery Method Room Air BMI result Body Mass Index 35.0 Vital signs have been reviewed and appear to be correct. Blood pressure slightly low. Heart rate slightly tachycardic. Respiratory rate normal. Temperature normal. Oxygen saturation normal. Const General: cooperative and no acute distress Orientation/consciousness: oriented to person, oriented to place, oriented to time and patient oriented x3 Limitations: no limitations HENMT Head: Yes normocephalic and Yes atraumatic Ears: external ears normal General nose exam: Normal external nose present Face and sinus: Yes face symmetric Mouth: oropharynx normal and moist mucous membranes Throat: Yes uvula midline Eyes Pupils: Equal, round and reactive pupils present Neck Neck: Yes normal visual inspection and Yes supple Resp Effort & Inspection: normal respiratory effort and able to speak in complete sentences Auscultation: clear to auscultation bilaterally Cardio Rate: regular rate Rhythm: regular rhythm Heart sounds: S1 normal heart sound present and S2 normal heart sound present GI Palpation (GI): Soft to palpation and nontender Auscultation: normoactive bowel sounds General: Yes no CVA tenderness Back/Spine/Pelvis Back: no CVA tenderness Skin General skin exam: elasticity normal and turgor normal Neuro General: oriented to person, oriented to place, oriented to time, patient oriented x3, moves all extremities, no focal motor deficits and CN's II-XI intact bilaterally Cranial nerves: Yes Equal, round and reactive pupils present Cognition (Neuro): normal cognition Extrem General: Yes full ROM, Yes no pedal edema and Yes no calf tenderness Psych Mental Status: mental status grossly normal Affect: normal affect Thought process: Normal thought process present Medications Administered Discontinued Medications Generic Name Dose Route Start Last Admin Trade Name Freq PRN Reason Stop Dose Admin Guaifenesin/Codeine Phosphate 5 ml 03/10/24 09:52 03/10/24 10:03 Guaifen/Codeine Sf 200/20/10ml 10 Ml Liquid PO 03/10/24 09:53 5 ml ONCE ONE Administration Medical Decision Making Medical Decision Making [facility] Narrative: Patient is a 63-year-old female with history of CKD stage 3, T2DM, HTN, obesity, HLD presenting to the emergency department with complaint of productive cough since . On exam patient is awake, A+Ox3, BP slightly low, HR slightly tachycardic, VS otherwise WNL, afebrile, normal neurological exam without focal deficits, physical exam findings as above. Given reported symptoms and physical exam findings, initial differential includes viral illness, Covid, flu, strep, bronchitis, pneumonia. Viral and strep swabs negative. X-ray chest notable for no evidence of pneumonia. My interpretation is in agreement with the radiologist's interpretation. Will treat patient for bronchitis with doxycycline, benzonatate, albuterol. Follow up with PCP. Return precautions discussed at bedside. Patient verbalized understanding of and agreement with plan. Differential Diagnosis Differential Diagnoses: The differential diagnosis associated with the presentation includes As per [facility] Lab Data [facility] Lab Attestation statement: I reviewed the patient's lab results. As per MDM. Labs: Lab Results 03/10/24 03/10/24 Range/Units 09:36 09:37 Influenza Type A (PCR) NEGATIVE (Negative) Influenza Type B (PCR) NEGATIVE (Negative) RSV RNA Qual (PCR) NEGATIVE (Negative) SARS-CoV-2 RNA (RT-PCR) NEGATIVE (Negative) S. pyogenes GrpA ASIF Negative (Negative) Independent Interpretation I performed an independent interpretation of an: Plain X-Ray Interpretation: NO evidence of pneumonia on chest xray Radiology Impression Discussion of test interpretation with radiology: I have reviewed the radiologist's reading. Radiologist Impression: XR/XR chest 2V IMPRESSION: No acute pulmonary disease. External Record Review External record reviewed: Inpatient record, Office record and Outpatient record Prescription Management I considered prescription management with: Antibiotic and Other Discharge Plan Discharge Clinical Impression: Bronchitis Patient Disposition: Home, Self-Care Instructions: How to Use a Metered-Dose Inhaler (ED), Acute Bronchitis (ED) Additional Instructions: You were evaluated in the emergency department today for cough and shortness of breath. You are being treated for bronchitis with an antibiotic, please complete the full course as prescribed. This antibiotic can increase your sensitivity in the sun, so you should wear pants/long sleeves and sunscreen when outdoors. You are also being prescribed a short course of steroids to decrease inflammation. You are being prescribed an inhaler which you can use every 4-6 hours as needed for shortness of breath. Please follow-up with your primary care provider this week. Return to the emergency department if you develop worsening shortness of breath, difficulty breathing, chest pain, fever not improved with Tylenol or ibuprofen, or any other concerning symptoms. Prescriptions: New doxycycline hyclate 100 mg capsule 100 mg PO BID Qty: 10 0RF albuterol sulfate 90 mcg/actuation HFA aerosol inhaler 2 puff inhalation Q4-6H PRN (Reason: shortness of breath or wheezing) Qty: 6.7 0RF benzonatate 100 mg capsule 100 mg PO TID PRN (Reason: cough) Qty: 14 0RF No Action (DME) FreeStyle Lite Strips Strip See Rx Instructions .Route Qty: 60 11RF Rx Instructions: As directed two times a day (DME) lancets [FreeStyle Lancets] 28 gauge misc See Rx Instructions .Route Qty: 60 11RF Rx Instructions: As directed two times a day lisinopril 10 mg tablet 10 mg PO DAILY Qty: 90 3RF cholecalciferol (vitamin D3) 50 mcg (2,000 unit) capsule 50 mcg PO DAILY Qty: 90 3RF pravastatin 40 mg tablet 40 mg PO DAILY Qty: 90 3RF Xigduo XR 10-1,000 mg tablet, IR - ER, biphasic 24hr 1 tab PO DAILY Qty: 90 2RF loratadine 10 mg tablet 10 mg PO DAILY Qty: 90 8RF pioglitazone 45 mg tablet 45 mg PO DAILY Qty: 90 3RF (DME) blood-glucose meter [FreeStyle Lite Meter] Kit See Rx Instructions .Route Rx Instructions: As directed two times a day Print Language: Malay
[2024-03-10 09:59] LABS: IDNOW Serial# 08D9AD1C; Strep A Nucleic Acid Negative (Negative)
[2024-03-10 10:00] VITALS: BP 113/56; PULSE 85; RESP 18; TEMP 35.7; O2SAT 98
[2024-03-10] MEDS: guaiFEN/Codeine SF 200/20/10ML 10 ML LIQUID 5 ML PO (10:03)
[2024-03-10 10:18] LABS: Influenza A PCR NEGATIVE (Negative); Influenza B PCR NEGATIVE (Negative); Resp Syncy Virus RNA Qual PCR NEGATIVE (Negative); SARS COV2 PCR INHOUSE NEGATIVE (Negative)
[2024-03-10 11:57] VITALS: BP 113/56; PULSE 85; RESP 18; TEMP 35.7; O2SAT 98
== END 2024-03-10 11:58 | disposition home or self-care (01) ==
PROVIDERS: Emergency Provider Emergency Medicine; PCP Internal Medicine
DX: J40 Bronchitis, not specified as acute or chronic (principal); R05.9 Cough, unspecified; R07.81 Pleurodynia; I12.9 Hypertensive chronic kidney disease with stage 1 through stage 4 chronic kidney disease, or unspecified chronic kidney disease; E11.22 Type 2 diabetes mellitus with diabetic chronic kidney disease; N18.30 Chronic kidney disease, stage 3 unspecified; Z03.818 Encounter for observation for suspected exposure to other biological agents ruled out
CPT/HCPCS: 0241U; 71046; 87651; 99283

== ENCOUNTER 2024-06-02 12:36 | Outpatient (AMB) | payer OTHER, SELFPAY ==
--- NOTE | 2024-06-02 12:38 | A.OFFPC_ITS ---
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 Accompanied by: Self / Same As Patient Allergies Penicillins Allergy (Verified 06/02/24 12:39) Weakness Medication List - Last Reconciled 06/03/24 by Saw Kern MD albuterol sulfate 90 mcg/actuation 2 puffs inhalation Q4-6H PRN benzonatate 100 mg PO TID PRN blood sugar diagnostic (FreeStyle Lite Strips) As directed two times a day blood-glucose meter (FreeStyle Lite Meter kit) As directed two times a day cholecalciferol (vitamin D3) 50 mcg PO DAILY dapaglifloz propaned-metformin 10-1,000 mg ER (Xigduo XR) 1 tab PO DAILY lancets (FreeStyle Lancets) As directed two times a day lisinopril 10 mg PO DAILY loratadine 10 mg PO DAILY pioglitazone 45 mg PO DAILY pravastatin 40 mg PO DAILY Tobacco use date assessed: 06/02/24 Dental Screening Dental Screen Date: 06/02/24 Did you have a dental visit in the last 12 months?: No Did you have a dental problem in the last 6 months where you did not have access to dental care?: No Was dental information given to patient?: Patient has dentist HPI Annual Exam HPI Details diabetes hypertension and asthma; stable [facility] Medical History Obesity due to excess calories Hyperlipidemia associated with type 2 diabetes mellitus Obesity Diabetes mellitus Obesity (BMI 30-39.9) Vitamin D deficiency Dyslipidemia Hypertension CKD (chronic kidney disease) stage 3, GFR 30-59 ml/min Diabetic nephropathy associated with type 2 diabetes mellitus Diabetes type 2, controlled Surgical History Hx of knee surgery Hx of colonoscopy Hx of tubal ligation Family History Father No problems noted. Mother Cancer Social History Housing: Apartment Alcohol intake: current Alcohol intake frequency: holidays/special occasions only Patient Tobacco Use Status: Never used Tobacco Tobacco use type: Cigarette e-Cigarette/Vaping Use: Never Used Second Hand Smoke Exposure: No service: No Current occupational status: disabled Cognitive needs: No Hearing needs: No Vision needs: No Questionnaire PHQ-9 Over the last 2 weeks, how often have you been bothered by any of the following problems? 1. Little interest or pleasure in doing things: not at all 2. Feeling down, depressed, or hopeless: not at all 3. Trouble falling or staying asleep, or sleeping too much: not at all 4. Feeling tired or having little energy: several days 5. Poor appetite or overeating: several days 6. Feeling bad about yourself - or that you are a failure or have let yourself or your family down: not at all 7. Trouble concentrating on things, such as reading the newspaper or watching television: not at all 8. Moving or speaking so slowly that other people could have noticed. Or the opposite - being so fidgety or restless that you have been moving around a lot more than usual: not at all 9. Thoughts that you would be better off or of hurting yourself in some way: not at all Total score: 2 Source: Developed by Drs. Chris Coleman, Stacey Salguero, Rigo Cason and colleagues, with an educational oneal from [employer]. Thrive Questionnaire Date Thrive assessed: 06/02/24 I am a: Patient What is your living situation today?: I have a steady place to live Within the past 12 months, did the food you bought not last and you didn't have the money to get more?: Never true Within the past 12 months, did you worry whether your food would run out before you got money to buy more?: Never true Do you have trouble paying for medicines?: No Do you have trouble getting transportation to medical appointments?: No Do you have trouble paying your heating and electricity bill?: No Do you have trouble taking care of your child, family member or friend?: No Do you have trouble with day-to-day activities such as bathing, preparing meals, shopping, managing finances, etc.?: No Are you currently unemployed and looking for a job?: No Are you interested in more education?: No Please select the resources that you would like help with: None Currently or been in a relationship where the following occur: No concerns reported THRIVE Score: 0 AUDIT C Alcohol Use Questionnaire (AUDIT-C) 1. How often do you have a drink containing alcohol?: Never Total Score: 0 ELYSE-7 AMB Questionnaire ELYSE-7 Date ELYSE - 7 assessed: 06/02/24 Feeling nervous, anxious, or on edge: 0 = Not at all Not being able to stop or control worryin = Not at all Worrying too much about different things: 0 = Not at all Trouble relaxin = Not at all Being so restless that it is hard to sit still: 0 = Not at all Becoming easily annoyed or irritable: 0 = Not at all Feeling afraid as if something awful might happen: 0 = Not at all Total ELYSE-7 score (0-4 normal; 5-9 mild; 10-14 moderate; 15-21 severe): 0 Source: Developed by Drs. Chris Coleman, Stacey Salguero, Rigo Cason and colleagues, with an educational oneal from [employer]. Review of Systems Const Denies chills, Denies fatigue, Denies headache(s) and Denies weight loss Eyes Denies change in vision, Denies diplopia and Denies eye pain ENT Denies vertigo, Denies dizziness, Denies headache(s) and Denies nasal discharge Card Denies chest pain, Denies rapid heart rate and Denies dyspnea on exertion Resp Denies chest congestion, Denies cough, Denies pain with cough and Denies dyspnea on exertion GI Denies abdominal pain, Denies hematochezia and Denies change in bowel habits Musc Denies myalgias, Denies arthralgias and Denies joint swelling Skin/Breast Denies lesions and Denies unusual bruising Neuro Denies vertigo, Denies dizziness, Denies headache(s) and Denies focal weakness Endo Denies fatigue Physical exam (Primary Care) Vital Signs: Last Vital Signs Pulse 107 H 06/02/24 12:39 BP 110/56 L 06/02/24 12:39 Pulse Ox 91 L 06/02/24 12:39 Oxygen Delivery Method Room Air 06/02/24 12:39 BMI result Body Mass Index 35.1 Tobacco/Smoking Status: Tobacco use Status Tobacco use date assessed 06/02/24 06/02/24 12:44 Patient Tobacco Use Status Never used Tobacco 06/02/24 12:44 Tobacco use type Cigarette 06/02/24 12:44 e-Cigarette/Vaping Use Never Used 06/02/24 12:44 PHQ-9: PHQ-9 Score PHQ-9: Total score 2 06/02/24 12:44 Thrive Assessment: Date of Thrive Assessment Date Thrive assessed 06/02/24 06/02/24 12:44 Currently or been in a relationship where the following occur: No concerns reported Const General: cooperative, healthy appearing and no acute distress Orientation/consciousness: oriented to person, oriented to place and oriented to time HENMT Head: Yes normal to inspection, Yes normocephalic and Yes atraumatic Mouth: Normal oral and palatal mucosa present and tongue normal Throat: Yes posterior oropharynx normal and Yes uvula midline Eyes General: appearance normal, both eyes and all related structures Neck Neck: Yes normal visual inspection, Yes full ROM and Yes no lymphadenopathy Thyroid: Thyroid normal Carotids: normal carotid upstroke Chest Chest palpation & inspection: normal inspection of the chest Resp Effort & Inspection: normal respiratory effort and able to speak in complete sentences Auscultation: clear to auscultation bilaterally Cardio Jugular venous distension: no JVD Palpation: normal PMI Rate: regular rate Rhythm: regular rhythm Heart sounds: S1 normal heart sound present and S2 normal heart sound present GI Inspection: Yes normal to inspection Palpation (GI): Soft to palpation and No hepatosplenomegaly present Auscultation: normal bowel sounds General: Yes no CVA tenderness Back/Spine/Pelvis Back: no CVA tenderness Skin General skin exam: no rashes or lesions noted Neuro General: oriented to person, oriented to place and oriented to time Extrem General: Yes normal to inspection and Yes full ROM Office Procedures Flu Questionnaire Does the patient have a severe egg allergy?: No Does the patient have severe life threatening allergies?: No Does the patient have a fever or illness today?: No Has the patient ever had Guillain-[place] Syndrome?: No Has the patient ever had any past reaction to a flu shot?: No Results AMB Hemoglobin A1c AMB Hemoglobin A1c 9.0 % Last Edit by Olimpia Root CMA on 06/02/24 12:52 Immunizations Fluarix Triv [id number] (PF) 45 mcg (15 mcg x 3)/0.5 mL IM syringe Performing Provider: Saw Kern MD [facility] [place] [facility] Administered by: Nubia Morrison RN on 06/02/24 12:55 Dose Route Admin Location Dispensed Lot Number Expiration Date NDC Senior Benefits Specialist 0.5 mL IM Left Deltoid 0.5 mL [id number] 02/16/25 [id number] [employer] VIS Given Date VIS Provided VIS Publication Date 06/02/24 Single Vaccine 21 Eligibility Eligibility Date Funding Source Not [facility] Eligible 06/02/24 Private Results Reviewed Results Reviewed: Laboratory Last Values Hgb A1c (Clinic) 9.0 % (4.0-6.0) H 06/02/24 12:49 Coding Level of Care Code Est Pt Prev Care 40-64y(98141) Diagnoses Physical exam Z00.00 Diabetes mellitus E11.9 Hypertension I10 Asthma J45.909 Assessment & Plan Assessment & Plan (1) Physical exam: Code(s): Z00.00 - Encounter for general adult medical examination without abnormal findings Category: Medical Plan: do labs (2) Diabetes mellitus: Code(s): E11.9 - Type 2 diabetes mellitus without complications Category: Medical Plan: stable; same rx (3) Hypertension: Code(s): I10 - Essential (primary) hypertension Category: Medical Plan: stable; same rx (4) Asthma: Code(s): J45.909 - Unspecified asthma, uncomplicated Category: Medical Plan: stable; same rx Orders: Orders Influenza [id number] Immunization 06/02/24 Z23 - Encounter for immunization AMB Hemoglobin A1c 06/02/24 E11.9 - Type 2 diabetes mellitus without complications
[2024-06-02 12:39] VITALS: BP 110/56; PULSE 107; O2SAT 91; BMI 35.1
--- NOTE | 2024-06-02 12:54 | AM.OFFVISNUR ---
Vital Signs 06/02/24 12:39 Height 5 ft 2 in Weight 192 lb BMI 35.1 BP 110/56 L Blood Pressure Location Lt brachial Position Sitting Pulse 107 H Pulse Source Pulse Oximeter Pulse Oximetry (%) 91 L Oxygen Delivery Method Room Air Intake Visit Reasons: Annual Exam Allergies Penicillins Allergy (Verified 06/02/24 12:39) Weakness Office Procedures Flu Questionnaire Does the patient have a severe egg allergy?: No Does the patient have severe life threatening allergies?: No Does the patient have a fever or illness today?: No Has the patient ever had Guillain-[place] Syndrome?: No Has the patient ever had any past reaction to a flu shot?: No Results AMB Hemoglobin A1c AMB Hemoglobin A1c 9.0 % Last Edit by Olimpia Root CMA on 06/02/24 12:52 Assessment & Plan Assessment & Plan Orders: Orders Influenza [id number] Immunization Today Z23 - Encounter for immunization AMB Hemoglobin A1c Today E11.9 - Type 2 diabetes mellitus without complications Medications: New Fluarix Triv [id number] (PF) (flu vacc [id number] 6mos up(PF)) 0.5 mL IM ONCE 0.5 mL 0RF NS Z23 - Encounter for immunization
== END 2024-06-02 13:00 | disposition home or self-care (01) ==
PROVIDERS: PCP Internal Medicine; Visit Provider Internal Medicine
DX: Z00.00 Encounter for general adult medical examination without abnormal findings (principal); E11.9 Type 2 diabetes mellitus without complications; I10 Essential (primary) hypertension; J45.909 Unspecified asthma, uncomplicated

== ENCOUNTER → 2024-06-02 12:36 | Outpatient (BNVA) | payer OTHER, SELFPAY | PROVIDERS: PCP Internal Medicine; Visit Provider Internal Medicine | DX: Z00.00 Encounter for general adult medical examination without abnormal findings (principal); Z23 Encounter for immunization; E11.9 Type 2 diabetes mellitus without complications; I10 Essential (primary) hypertension; J45.909 Unspecified asthma, uncomplicated | CPT/HCPCS: 83036; 90471; 90656; 96127; 99396 ==

== ENCOUNTER 2024-09-20 09:10 | Emergency (ER) | payer OTHER, SELFPAY ==
[2024-09-20 09:17] VITALS: BP 139/68; PULSE 99; RESP 19; TEMP 36.6; O2SAT 99; BMI 34.4
[2024-09-20 10:20] LABS: Influenza A PCR POSITIVE (Negative); Influenza B PCR NEGATIVE (Negative); Resp Syncy Virus RNA Qual PCR NEGATIVE (Negative); SARS COV2 PCR INHOUSE NEGATIVE (Negative)
--- NOTE | 2024-09-20 11:17 | ED_ITS ---
HPI - URI/Sore Throat General Chief Complaint: Upper Respiratory Symptoms Stated Complaint: covid symptons Time Seen by Provider: 09/20/24 11:17 Source: patient, RN notes reviewed and old records reviewed Mode of arrival: ambulatory History of Present Illness ED Provider: Essie Jorge PA-C HPI Narrative: 64-year-old female with a past medical history of asthma, obesity, anemia, HLD, HTN, CKD, diabetes, presenting to the ED complaining of dry cough, congestion, headache, myalgias, body ache x 3 days. Admits she was exposed to COVID. Denies recent travel, chest pain/shortness of breath Related Data Home Medications ?Medication ?Instructions ?Recorded ?Confirmed blood-glucose meter (FreeStyle 06/21/21 06/03/24 Lite Meter kit) Previous Rx's ?Medication ?Instructions ?Recorded blood sugar diagnostic (FreeStyle #60 ea 06/21/21 Lite Strips) lancets 28 gauge (FreeStyle #60 ea 06/21/21 Lancets) dapagliflozin propaned 10 1 tab PO DAILY #90 tabs 12/24/23 mg-metformin ER 1,000 mg tablet,ext rel 24hr (Xigduo XR) loratadine 10 mg tablet 10 mg PO DAILY #90 tabs 12/24/23 pioglitazone 45 mg tablet 45 mg PO DAILY #90 tabs 02/05/24 albuterol sulfate 90 mcg/actuation 2 puff inhalation Q4-6H PRN 03/10/24 aerosol inhaler shortness of breath or wheezing #6.7 grams benzonatate 100 mg capsule 100 mg PO TID PRN cough #14 caps 03/10/24 lisinopril 10 mg tablet 10 mg PO DAILY #90 tabs 05/07/24 cholecalciferol (vitamin D3) 50 50 mcg PO DAILY #90 caps 07/02/24 mcg (2,000 unit) capsule pravastatin 40 mg tablet 40 mg PO DAILY #90 tabs 07/02/24 Allergies Allergy/AdvReac Type Severity Reaction Status Date / Time Penicillins Allergy Weakness Verified 09/20/24 09:18 Review of Systems Review of Systems: Yes all other systems are reviewed and are negative Constitutional: Constitutional: Reports as per [facility] Past Medical History Attestation statement: The following information was validated with the patient. Source: old records reviewed Medical History Obesity due to excess calories Hyperlipidemia associated with type 2 diabetes mellitus Obesity Diabetes mellitus Obesity (BMI 30-39.9) Vitamin D deficiency Dyslipidemia Hypertension CKD (chronic kidney disease) stage 3, GFR 30-59 ml/min Diabetic nephropathy associated with type 2 diabetes mellitus Diabetes type 2, controlled Surgical History Hx of knee surgery Hx of colonoscopy Hx of tubal ligation Family History Family History Father No problems noted. Mother Cancer Social History Social History Housing: Apartment Alcohol intake: current Alcohol intake frequency: holidays/special occasions only Patient Tobacco Use Status: Never used Tobacco Tobacco use type: Cigarette e-Cigarette/Vaping Use: Never Used Second Hand Smoke Exposure: No Advance Directives: No Advance Directives Information Provided: No Do you have a plan to hurt others: No Plan service: No Current occupational status: disabled Cognitive needs: No Hearing needs: No Vision needs: No Physical Exam Vital Signs: Vital Signs: Last Vital Signs Temp 98 F 09/20/24 09:17 Pulse 99 09/20/24 09:17 Resp 19 09/20/24 09:17 BP 139/68 09/20/24 09:17 Pulse Ox 99 09/20/24 09:17 O2 Del Method Room Air 09/20/24 09:17 BMI result Body Mass Index 34.4 Const: General: cooperative, healthy appearing and no acute distress Orientation/consciousness: patient oriented x3 Limitations: no limitations HEENT: Head: Yes normal to inspection and Yes atraumatic Ears: hearing grossly normal bilaterally General nose exam: Normal external nose present Face and sinus: Yes normal facial exam Eyes: General: appearance normal, both eyes and all related structures EOM: EOMs intact bilaterally Neck: Neck: Yes normal visual inspection and Yes no meningeal signs Resp: Effort & Inspection: normal respiratory effort and no respiratory distress Auscultation: clear to auscultation bilaterally, no crackles, no rales, no rhonchi and no wheezes Cardio: Rate: regular rate Heart sounds: S1 normal heart sound present and S2 normal heart sound present : General: Yes no CVA tenderness Back/Spine/Pelvis: Back: no CVA tenderness Skin: Rashes: no rashes Wounds: no wounds Neuro: General: patient oriented x3, tone normal and no meningeal signs Cranial nerves: Yes CN's II-XII intact bilaterally Gait exam (Neuro): Normal gait present Extrem: General: Yes normal to inspection Course Course Course Narrative: -influenza a positive > out of the window for Tamiflu Results discussed with patient including worrisome signs and symptoms and strict return precautions, and when to return to the emergency department. They verbalized understanding and feel safe for discharge at this time. Medical Decision Making Medical Decision Making MDM Narrative: 64-year-old female with a past medical history of asthma, obesity, anemia, HLD, HTN, CKD, diabetes, presenting to the ED complaining of dry cough, congestion, headache, myalgias, body ache x 3 days. On exam vital signs stable, NAD, nontoxic appearing, physical exam as noted above. Concern for viral illness. Lower suspicion for ACS/PE, pneumonia, or dissection Plan: Viral testing Please refer to course for remaining clinical decision making, interpretation of labs/imaging results, and discussions with consultants and/or family members. Differential Diagnosis Differential Diagnoses: The differential diagnosis associated with the presentation includes As above Admission/Observation Consideration of admission/observation: Escalation of care including admission/observation considered Lab Data [facility] Lab Attestation statement: I reviewed the patient's lab results. Labs: Lab Results 09/20/24 Range/Units 09:30 Influenza Type A (PCR) POSITIVE A (Negative) Influenza Type B (PCR) NEGATIVE (Negative) RSV RNA Qual (PCR) NEGATIVE (Negative) SARS-CoV-2 RNA (RT-PCR) NEGATIVE (Negative) Radiology Impression Discussion of test interpretation with radiology: I have reviewed the radiologist's reading. External Record Review External record reviewed: Inpatient record, Office record, Outpatient record, Prior outpatient labs, Prior outpatient radiology, Primary care record and Outside ED record Tests considered The following testing was considered but not selected: As above Discharge Plan Discharge Clinical Impression: Influenza Patient Disposition: Home, Self-Care Instructions: Influenza (DC) Additional Instructions: You have a virus No antibiotics are indicated at this time Make sure you are staying hydrated. Drink plenty of fluids. Rest Alternate Tylenol and Motrin at home as needed for body aches and fever Follow-up with your doctor. If symptoms persist or worsen return to the emergency department *If you are a child & not tolerating liquid or urinating for more than 6 hours, or fevers are uncontrolled with medications at home, return to the emergency department* Prescriptions: No Action (DME) FreeStyle Lite Strips Strip See Rx Instructions .Route Qty: 60 11RF Rx Instructions: As directed two times a day (DME) lancets [FreeStyle Lancets] 28 gauge misc See Rx Instructions .Route Qty: 60 11RF Rx Instructions: As directed two times a day Xigduo XR 10-1,000 mg tablet, IR - ER, biphasic 24hr 1 tab PO DAILY Qty: 90 2RF loratadine 10 mg tablet 10 mg PO DAILY Qty: 90 8RF pioglitazone 45 mg tablet 45 mg PO DAILY Qty: 90 3RF lisinopril 10 mg tablet 10 mg PO DAILY Qty: 90 3RF pravastatin 40 mg tablet 40 mg PO DAILY Qty: 90 3RF cholecalciferol (vitamin D3) 50 mcg (2,000 unit) capsule 50 mcg PO DAILY Qty: 90 3RF albuterol sulfate 90 mcg/actuation HFA aerosol inhaler 2 puff inhalation Q4-6H PRN (Reason: shortness of breath or wheezing) Qty: 6.7 0RF benzonatate 100 mg capsule 100 mg PO TID PRN (Reason: cough) Qty: 14 0RF (DME) blood-glucose meter [FreeStyle Lite Meter] Kit See Rx Instructions .Route Rx Instructions: As directed two times a day Referrals: Saw Kern MD [Primary Care Provider] - 5 days Print Language: Occitan
--- OUTSIDE RECORDS SUMMARY | 2024-09-20 11:23 | XMS_ITS | Clinical Summary ---
Author Organization [employer] Address [address] [place] [address] Care Team Providers Care Public Affairs Manager Name Role Phone Unavailable Primary Care Provider Unavailabl e Immunizations Name Administration Dates Next Due Influenza injectable quadriv alent IIV4 with preservative 08/28/2018,05/21/2017,05/25/2016 Influenza injectable quadriv alent preservative free 07/17/2022,05/23/2021,07/25/2019 Moderna Covid-19 Vaccine 6+ Bivalent 12/25/2022 Tdap 10/05/2016 Social History Tobacco Use Types Packs/Day Years Used Date Smoking Tobacco: Never Assessed Comments Unknown Sex and Gender Information Value Date Recorded Sex Assigned at Female 06/19/2022 10:15 AM EDT Legal Sex Female 10:15 AM EDT Gender Identity Female 06/19/2022 10:15 AM EDT Sexual Orientation Straight 06/19/2022 10 :15 AM EDT Plan of Treatment Health Maintenance Due Date Last Done Comments CT Colonography 1960 Colonoscopy 1960 Colorectal Cancer Screening 1960 Depression Screening 1960 FIT DNA/Cologuard 1960 FIT 1960 FOBT 1960 HIV Screening 1960 SDOH Screening 1960 Sigmoidoscopy 1960 Alcohol/Substance Use Screening 1972 Tobacco Screening 1972 Hepatitis C Screening 1978 Pap Smear 1981 Cervical Cancer Screening 1990 HPV/Cotest 1990 Mammogram 2000 Pneumococcal Vaccine: 50+ Years (1 of 1 - PCV) 2010 Zoster Vaccines (1 of 2) 2010 COVID-19 Vaccine (2023- season) 2024 12/25/2022, 12/06/2021, 07/06/2021, Additional history exists Influenza Vaccine (#1) 2024 2, 05/23/2021, 07/25/2019, Additional history exists DTaP/Tdap/Td Vaccines (2 - Td or Tdap) 10/05/2026 10/05/2016 RSV Patients and Patients Aged 60 years or older (1 - 1-dose 75+ series) 2035 HIB Vaccines Aged Out No longer eligi ble based on patient's age to complete this topic HPV Vaccines Aged Out No longer eligi ble based on patient's age to complete this topic Hepatitis A Vaccines Aged Out No long er eligible based on patient's age to complete this topic Hepatitis B Vaccines Aged Out No long er eligible based on patient's age to complete this topic IPV Vaccines Aged Out No longer eligi ble based on patient's age to complete this topic Meningococcal Vaccine Aged Out No gaston xochitl eligible based on patient's age to complete this topic RSV under 20 months Aged Out No longe r eligible based on patient's age to complete this topic Rotavirus Vaccines Aged Out No longer eligible based on patient's age to complete this topic Insurance - [facility] [place] [id number]
[2024-09-20 11:45] VITALS: BP 139/68; PULSE 99; RESP 19; TEMP 36.6; O2SAT 99
== END 2024-09-20 11:45 | disposition home or self-care (01) ==
PROVIDERS: Emergency Provider Emergency Medicine; PCP Internal Medicine
DX: J10.1 Influenza due to other identified influenza virus with other respiratory manifestations (principal); R05.9 Cough, unspecified; Z03.818 Encounter for observation for suspected exposure to other biological agents ruled out
CPT/HCPCS: 0241U; 99282; 99283

== ENCOUNTER 2025-01-29 15:57 | Outpatient (AMB) | payer OTHER, SELFPAY ==
--- NOTE | 2025-01-29 15:58 | A.OFFPC_ITS ---
Vital Signs 01/29/25 16:00 Height 5 ft 3 in Weight 184 lb BMI 32.6 BP 112/74 Blood Pressure Location Lt brachial Position Sitting Intake Visit Reasons: JUSTO DR Kern/ Need A1C Silver Steward Required: No Accompanied by: Self / Same As Patient Allergies Penicillins Allergy (Verified 01/29/25 16:19) Weakness Medication List - Last Reconciled 01/29/25 by Jolene Richter MD albuterol sulfate 90 mcg/actuation 2 puffs inhalation Q4-6H PRN blood sugar diagnostic (FreeStyle Lite Strips) As directed two times a day blood-glucose meter (FreeStyle Lite Meter kit) As directed two times a day cholecalciferol (vitamin D3) 50 mcg PO DAILY dapaglifloz propaned-metformin 10-1,000 mg ER (Xigduo XR) 1 tab PO DAILY lancets (FreeStyle Lancets) As directed two times a day lisinopril 10 mg PO DAILY loratadine 10 mg PO DAILY pioglitazone 45 mg PO DAILY pravastatin 40 mg PO DAILY Tobacco use date assessed: 01/29/25 Fall risk assessment: No Falls in past year Last assessed Fall Risk: 01/29/25 Dental Screening Dental Screen Date: 01/29/25 Did you have a dental visit in the last 12 months?: Yes Did you have a dental problem in the last 6 months where you did not have access to dental care?: No Was dental information given to patient?: Patient has dentist HPI HPI Comments History of Present Illness Details This is a 64-year-old female with diabetes mellitus type 2, hypertension, hyperlipidemia and chronic kidney disease stage 3 that comes today for follow-up on her conditions. A1c has improved but still elevated and I will refer her to Endocrinology again. Blood pressure stable. Lipid panel will be order and her LDL goal should be less than 70. Last GFR was 54 and labs will be repeated. Last mammogram was 2023 and has not had a DEXA scan yet. Denies any chest pain or shortness on breath. Complains of a slight lingering cough that started about 2 weeks ago which has improved but is still present. No chest pain or shortness on breath. [facility] Medical History (Updated 01/29/25 @ 16:34 by Jolene Richter MD) Obesity due to excess calories Hyperlipidemia associated with type 2 diabetes mellitus Obesity Diabetes mellitus Obesity (BMI 30-39.9) Vitamin D deficiency Dyslipidemia Hypertension CKD (chronic kidney disease) stage 3, GFR 30-59 ml/min Diabetic nephropathy associated with type 2 diabetes mellitus Diabetes type 2, controlled Surgical History (Updated 01/29/25 @ 16:23 by Jolene Richter MD) Hx of colonoscopy Hx of tubal ligation Family History Father No problems noted. Mother Cancer Social History Housing: Apartment Alcohol intake: current Alcohol intake frequency: holidays/special occasions only Patient Tobacco Use Status: Never used Tobacco e-Cigarette/Vaping Use: Never Used Second Hand Smoke Exposure: No service: No Current occupational status: disabled Cognitive needs: No Hearing needs: No Vision needs: No Questionnaire PHQ-9 Over the last 2 weeks, how often have you been bothered by any of the following problems? 1. Little interest or pleasure in doing things: not at all 2. Feeling down, depressed, or hopeless: not at all 3. Trouble falling or staying asleep, or sleeping too much: not at all 4. Feeling tired or having little energy: not at all 5. Poor appetite or overeating: not at all 6. Feeling bad about yourself - or that you are a failure or have let yourself or your family down: not at all 7. Trouble concentrating on things, such as reading the newspaper or watching television: not at all 8. Moving or speaking so slowly that other people could have noticed. Or the opposite - being so fidgety or restless that you have been moving around a lot more than usual: not at all 9. Thoughts that you would be better off or of hurting yourself in some way: not at all Total score: 0 Depression Screening Interpretation: Negative Depression Screening Done: Yes 32012 - PHQ-9 Billing: Yes Source: Developed by Drs. Chris Coleman, Stacey Salguero, Rigo Cason and colleagues, with an educational oneal from [employer]. Thrive Questionnaire Date Thrive assessed: 01/29/25 I am a: Patient What is your living situation today?: I have a steady place to live Within the past 12 months, did the food you bought not last and you didn't have the money to get more?: Never true Within the past 12 months, did you worry whether your food would run out before you got money to buy more?: Never true Do you have trouble paying for medicines?: No Do you have trouble getting transportation to medical appointments?: No Do you have trouble paying your heating and electricity bill?: No Do you have trouble taking care of your child, family member or friend?: No Do you have trouble with day-to-day activities such as bathing, preparing meals, shopping, managing finances, etc.?: No Are you currently unemployed and looking for a job?: No Are you interested in more education?: No Please select the resources that you would like help with: None Currently or been in a relationship where the following occur: No concerns reported THRIVE Score: 0 AUDIT C Alcohol Use Questionnaire (AUDIT-C) 1. How often do you have a drink containing alcohol?: Never Total Score: 0 Score Reviewed/Action Taken: No ELYSE-7 AMB Questionnaire ELYSE-7 Date ELYSE - 7 assessed: 01/29/25 Feeling nervous, anxious, or on edge: 0 = Not at all Not being able to stop or control worryin = Not at all Worrying too much about different things: 0 = Not at all Trouble relaxin = Not at all Being so restless that it is hard to sit still: 0 = Not at all Becoming easily annoyed or irritable: 0 = Not at all Feeling afraid as if something awful might happen: 0 = Not at all Total ELYSE-7 score (0-4 normal; 5-9 mild; 10-14 moderate; 15-21 severe): 0 Source: Developed by Drs. Chris Coleman, Stacey Salguero, Rigo Cason and colleagues, with an educational oneal from [employer]. ELYSE-7 Assessment Billing ELYSE-7 Assessment Tool: ELYSE-7 Assessment 47168 Review of Systems Const All systems reviewed & are unremarkable except as noted in HPI and below Card Denies chest pain at rest, Denies chest pain with activity, Denies edema, Denies irregular heart rhythm, Denies claudication, Denies dyspnea, Denies dyspnea on exertion, Denies orthopnea, Denies paroxysmal nocturnal dyspnea and Denies slow heart rate Resp Denies cough, Denies dyspnea and Denies dyspnea on exertion GI Denies abdominal pain, Denies change in bowel habits, Denies excessive flatus, Denies nausea and Denies vomiting Neuro Denies lack of coordination Physical exam (Primary Care) Vital Signs: Last Vital Signs BP 112/74 01/29/25 16:00 BMI result Body Mass Index 32.6 BMI Assessment/Plan discussion: High BMI High, discussed plan: lifestyle, weight reduction, dietary and physical activity Tobacco/Smoking Status: Tobacco use Status Tobacco use date assessed 01/29/25 01/29/25 16:13 Patient Tobacco Use Status Never used Tobacco 01/29/25 16:13 Tobacco use type 01/29/25 16:13 e-Cigarette/Vaping Use Never Used 01/29/25 16:13 PHQ-9: PHQ-9 Score PHQ-9: Total score 0 01/29/25 16:13 Depression Screening Interpretation: Negative Thrive Assessment: Date of Thrive Assessment Date Thrive assessed 01/29/25 01/29/25 16:13 Currently or been in a relationship where the following occur: No concerns reported Resp Effort & Inspection: normal respiratory effort Auscultation: clear to auscultation bilaterally Cardio Jugular venous distension: no JVD Rate: regular rate Rhythm: regular rhythm Heart sounds: S1 normal heart sound present and S2 normal heart sound present Extrem General: Yes full ROM Results AMB Hemoglobin A1c AMB Hemoglobin A1c 8.8 % Last Edit by ZAFAR Santos on 01/29/25 16:1 9 Coding Level of Care Code Est Pt Level 4 (23854) Complex EM visit Add On G2211 Diagnoses Hyperlipidemia LDL goal <70 E78.5 Diabetes mellitus E11.9 Essential hypertension I10 CKD (chronic kidney disease) stage 3, GFR 30-59 ml/min N18.30 Additional Codes PHQ-9 - 29681 - PHQ-9 Billing: Yes ([id number]) ELYSE-7 Assessment Billing - ELYSE-7 Assessment Tool: ELYSE-7 Assessment 35706 ([id number]) Time Spent (min) 23 Assessment & Plan Assessment & Plan (1) Hyperlipidemia LDL goal <70: Code(s): E78.5 - Hyperlipidemia, unspecified Category: Medical (2) Diabetes mellitus: Code(s): E11.9 - Type 2 diabetes mellitus without complications Category: Medical (3) Essential hypertension: Code(s): I10 - Essential (primary) hypertension Category: Medical (4) CKD (chronic kidney disease) stage 3, GFR 30-59 ml/min: Code(s): N18.30 - Chronic kidney disease, stage 3 unspecified Category: Medical Plan Continue current medications. Blood pressure goal is equal or less than 130/80. LDL goal is less than 70. A1c goal is less than 7%. Referred to Endocrinology. Repeat fasting labs. Order mammogram and DEXA scan. Orders: Orders Vitamin D 25-OH Total Today E55.9 - Vitamin D deficiency, unspecified Lipid Panel Today E78.5 - Hyperlipidemia, unspecified Microalbumin, Random (w Creat) Today R80.9 - Proteinuria, unspecified XR DEXA axial skeleton Today Z78.0 - Asymptomatic menopausal state Comprehensive [place]. Panel Fast Today E11.69 - Type 2 diabetes mellitus with other specified complication, E78.5 - Hyperlipidemia, unspecified MM tomosynthesis screening BI Today Z12.31 - Encounter for screening mammogram for malignant neoplasm of breast AMB Hemoglobin A1c Today E11.9 - Type 2 diabetes mellitus without complications Referrals Endocrinology Referral E11.9 - Type 2 diabetes mellitus without complications Medications: New guaifenesin ER (Mucinex) 600 mg PO Q12H 5 days PRN 10 tabs 0RF congestion Changed From blood-glucose meter (FreeStyle Lite Meter kit) As directed two times a day To blood-glucose meter (FreeStyle Lite Meter kit) as directed 1 ea 0RF From blood sugar diagnostic (FreeStyle Lite Strips) As directed two times a day 60 ea 11RF E11.21 - Type 2 diabetes mellitus with diabetic nephropathy, N18.30 - Chronic kidney disease, stage 3 unspecified To blood sugar diagnostic (FreeStyle Lite Strips) Use 1 test strip once a day 100 ea 11RF E11.21 - Type 2 diabetes mellitus with diabetic nephropathy, N18.30 - Chronic kidney disease, stage 3 unspecified From lancets (FreeStyle Lancets) As directed two times a day 60 ea 11RF E11.21 - Type 2 diabetes mellitus with diabetic nephropathy, N18.30 - Chronic kidney disease, stage 3 unspecified To lancets (FreeStyle Lancets) Use 1 lancet once a day 100 ea 11RF E11.21 - Type 2 diabetes mellitus with diabetic nephropathy, N18.30 - Chronic kidney disease, stage 3 unspecified Refilled pravastatin 40 mg PO DAILY 90 tabs 3RF E78.5 - Hyperlipidemia, unspecified loratadine 10 mg PO DAILY 90 tabs 8RF pioglitazone 45 mg PO DAILY 90 tabs 3RF lisinopril 10 mg PO DAILY 90 tabs 3RF I10 - Essential (primary) hypertension dapaglifloz propaned-metformin 10-1,000 mg ER (Xigduo XR) 1 tab PO DAILY 90 tabs 2RF E11.9 - Type 2 diabetes mellitus without complications cholecalciferol (vitamin D3) 50 mcg PO DAILY 90 caps 3RF E55.9 - Vitamin D deficiency, unspecified albuterol sulfate 90 mcg/actuation 2 puffs inhalation Q4-6H PRN 6.7 grams 0RF shortness of breath or wheezing
[2025-01-29 16:00] VITALS: BP 112/74; BMI 32.6
--- OUTSIDE RECORDS SUMMARY | 2025-01-29 18:11 | XMS_ITS | Patient Health Record ---
Author Organization [facility] Address [address] [place] [address] Care Team Providers Care Golf Course Mechanic Name Role Phone Saw Kern MD Primary Care Provider Chris Guido Unavailable [phone] Allergies Allergen (clinical drug ingredient) Drug/Non Drug Allergy documented on EMR Reaction Allergy Type Onset Date Status penicillin G Penicillin G Sodium Unknown Drug Allergy Active Reason For Referral No Information Medications Medication SIG (Take, Route, Frequency, Duration) Notes Start Date End Date Status Dulcolax (colon prep) 5 MG take at 3:00 p.m and 7:00p.m. Orally two tablets twice a day for one day for 1 days 12/14/2024 Active Albuterol Not-Taking Pravastatin Sodium 40 MG 1 tablet Orally Once a day Active Pioglitazone HCl 45 MG 1 tablet Orally Once a day Active MiraLax (colon prep) 17 GM/SCOOP 1 238 Gm bottle mixed with Gatorade or Crystal Light orally begin at 5:00 p.m. the day before the procedure for 1 days 12/14/2024 Active Claritin 10mg 1 tablet Orally Once a day Active Lisinopril 10 MG 1 tablet Orally Once a day Active Vitamin D3 Active Xigduo XR Combination of metformin and Farxiga Active Immunizations Vaccine Route Administration Date Status Comme nts Flu vaccine no Preserv 3 and > Unknown 04/20/2015 Admin istered Influenza Unknown 05/30/2018 Administered Problems Problem Type SNOMED Code ICD Code Onset Dates Problem Status W/U Status Risk Notes Problem [id number] Encounter for screening for malignant neoplasm of colon (Z12.11) Active confirmed Problem Preprocedural examination ([id number]) Preprocedural examination (Z01.818) Active confirmed Problem 924927796 Family history o f colon cancer (Z80.0) Active confirmed Problem 856033481 Abdominal pain, RUQ (R10.11) Active confirmed Problem 563617683 Hx of adenomatou s colonic polyps (Z86.010) Active confirmed Problem 101978869 Abdominal pain, right upper quadrant (R10.11) Active confirmed Vital Signs Blood pressure diastolic 11 mm Hg 11/04/2024 Height 62 in 11/04/2024 Blood pressure systolic 111 mm Hg 11/04/2024 Weight 188 lbs 11/04/2024 BMI 34.38 kg/m2 11/04/2024 Procedures Procedure Date Ordered Date Performed Result Body Sit e COLONOSCOPY 11/04/2024 N/A Encounters Encounter Location Date Provider Diagnosis [facility] [address] [place] [phone] 11/04/2024 Chris Leblanc Hx of adenomatous colonic polyps Z86.010 ; Preprocedural examination Z01.818 ; Encounter for screening for malignant neoplasm of colon Z12.11 and Family history of colon cancer Z80.0 [facility] [address] [place] [phone] 11/04/2024 hCris Leblanc Assessments Encounter Date Diagnosis (ICD Code) Assessment Notes Treatment Notes Treatment Clinical Notes Section Notes 11/04/2024 Preprocedural examination (ICD-10 - Z01.818) Overall, Samanta appears quite well. She is not having any new nor worrisome GI complaints. Given her previous history of a tubular adenoma of the colon, significant family she of her mother having from colon cancer at an early age, and her last colonoscopy being over 5 years ago, I did recommend a follow-up colonoscopy for further screening purposes. We did review the rationale for this in regard to colon cancer prevention. Full consent has been obtained for this, including risks of bleeding and perforation. The procedure will be done with monitored anesthesia care. She was given the below instructions regarding adjustment of her medications for the procedure. Samanta was comfortable with this plan. Thank you again for allowing me to participate in Samanta's care. I shall continue to keep you advised of her progress. 11/04/2024 Hx of adenomatous colonic polyps (ICD-10 - Z86.010) Overall, Samanta appears quite well. She is not having any new nor worrisome GI complaints. Given her previous history of a tubular adenoma of the colon, significant family she of her mother having from colon cancer at an early age, and her last colonoscopy being over 5 years ago, I did recommend a follow-up colonoscopy for further screening purposes. We did review the rationale for this in regard to colon cancer prevention. Full consent has been obtained for this, including risks of bleeding and perforation. The procedure will be done with monitored anesthesia care. She was given the below instructions regarding adjustment of her medications for the procedure. Samanta was comfortable with this plan. Thank you again for allowing me to participate in Samanta's care. I shall continue to keep you advised of her progress. 11/04/2024 Encounter for screening for malignant neoplasm of colon (ICD-10 - Z12.11) Do not take the XigDuo for 3 days before the colonosocpy Do not take the Pioglitazone the night before or on the day of the colonoscopy Overall, Samanta appears quite well. She is not having any new nor worrisome GI complaints. Given her previous history of a tubular adenoma of the colon, significant family she of her mother having from colon cancer at an early age, and her last colonoscopy being over 5 years ago, I did recommend a follow-up colonoscopy for further screening purposes. We did review the rationale for this in regard to colon cancer prevention. Full consent has been obtained for this, including risks of bleeding and perforation. The procedure will be done with monitored anesthesia care. She was given the below instructions regarding adjustment of her medications for the procedure. Samanta was comfortable with this plan. Thank you again for allowing me to participate in Samanta's care. I shall continue to keep you advised of her progress. 11/04/2024 Family history of colon cancer (ICD-10 - Z80.0) Overall, Samanta appears quite well. She is not having any new nor worrisome GI complaints. Given her previous history of a tubular adenoma of the colon, significant family she of her mother having from colon cancer at an early age, and her last colonoscopy being over 5 years ago, I did recommend a follow-up colonoscopy for further screening purposes. We did review the rationale for this in regard to colon cancer prevention. Full consent has been obtained for this, including risks of bleeding and perforation. The procedure will be done with monitored anesthesia care. She was given the below instructions regarding adjustment of her medications for the procedure. Samanta was comfortable with this plan. Thank you again for allowing me to participate in Samanta's care. I shall continue to keep you advised of her progress. Plan Of Treatment Pending Test Test Name Order Date COLONOSCOPY 11/04/2024 Future Test Test Name Order Date COLONOSCOPY 08/19/2013 COLONOSCOPY 01/10/2019 Next Appt Details Provider Name:Chris Leblanc , 02/11/2025 07:30:00 AM, [address] [place] [address] , [place], [place], [phone], Insurance Providers Payer Name Payer Address Payer Phone Subscriber Number Group Number Insured Name Patient Relationship to Insured Coverage Start Date Coverage End Date [facility] [address] [place] [address] [id number] SAMANTA ELIAS Self - patient is the insured [place] [address] [place] [address] [id number] URSULA ELIASAGRACIA Self - patient is the insured Medical (General) History Medical History History ICD Code Screening colonoscopy 05-11-2008--1 small tubular adenoma removed NIDDM Hypertension Denies history of ME, stroke, kidney dis ease Asthma--seasonal Fibromyalgia Osteoarthritis Negative colonoscopy in 10/09 14 except for diverticulosis and internal hemorrhoids Hyperlipidemia History of sleep apnea Neg. abdominal U/S in 09/2018 Negative screening colonoscopy in 2018 Surgical History Surgery Date(Month/Year) Foot surgery Tubal ligation
== END 2025-01-29 16:28 | disposition home or self-care (01) ==
LOC: HO.HMCH 15:58
PROVIDERS: PCP Internal Medicine; Visit Provider Internal Medicine
DX: E78.5 Hyperlipidemia, unspecified (principal); E11.9 Type 2 diabetes mellitus without complications; I10 Essential (primary) hypertension; N18.30 Chronic kidney disease, stage 3 unspecified

== ENCOUNTER → 2025-01-29 15:57 | Outpatient (BNVA) | payer OTHER, SELFPAY | PROVIDERS: PCP Internal Medicine; Visit Provider Internal Medicine | DX: E11.22 Type 2 diabetes mellitus with diabetic chronic kidney disease (principal); E11.69 Type 2 diabetes mellitus with other specified complication; E11.21 Type 2 diabetes mellitus with diabetic nephropathy; I12.9 Hypertensive chronic kidney disease with stage 1 through stage 4 chronic kidney disease, or unspecified chronic kidney disease; E78.5 Hyperlipidemia, unspecified; N18.30 Chronic kidney disease, stage 3 unspecified; E55.9 Vitamin D deficiency, unspecified; R50.9 Fever, unspecified | CPT/HCPCS: 83036; 96127; 99212 ==

== ENCOUNTER 2025-03-20 14:10 | Outpatient (AMB) | payer OTHER, SELFPAY ==
--- OUTSIDE RECORDS SUMMARY | 2025-02-11 03:30 | XMS_ITS ---
Author Organization [facility] Address [address] [place] [address] Care Team Providers Care Technical Services Analyst Name Role Phone Jolene Setin Primary Care Provider UnavailChris Coello [phone] REASON FOR VISIT screening,hx polyps,fam hx colon ca Encounters Encounter Location Date Provider Diagnosis [facility] Outpatient [address] [place] [phone] 02/11/2025 Chris Leblanc Plan Of Treatment Next Appt Details Provider Name:Chris Leblanc , 05/18/2025 09:30:00 AM, [address] [place] [address], [phone], Progress Notes * BETH ELIASDOB:01/1961 (64 yo F)Acc No.[id number]:02/11/2025 COLON WITH MAC Patient: Toby BETH TOVAR Provider: Toby Leblanc MD :1960 A ge:64 Y S ex:Female Date:02/11/2025 Address:[address] [place] [address] Pcp:Jolene Richter Subjective: * Chief Complaints: * 1 . Screening,hx polyps,fam hx colon ca. * Medical History: Objective: * Vitals: Assessment: Plan: * Treatment: * * The named appointment provid er may or may not be the originator of this progress note, and it is not deemed complete until electronically signed by the appointment provider. Sign off status: Pending * Provider: Toby Leblanc MD Date: 0 02/11/2025 Generated for Dionna guerrier/Theresa/Becky on: 0 03/20/2025 02:12 PM EDT
--- OUTSIDE RECORDS SUMMARY | 2025-03-20 14:13 | XMS_ITS | Clinical Summary ---
Author Organization [facility] [employer] Address [address] [facility] [address] [place] [address] Care Team Providers Care Uptwist Spinner Name Role Phone Unavailable Primary Care Provider Unavailabl e Immunizations Immunization Administration Dates Next Due Influenza injectable quadriv [...] Screening 1960 SDOH Screening 1960 Sigmoidoscopy 1960 Disability Screening 1960 Alcohol/Substance Use Screening 1972 Tobacco Screening 1972 Hepatitis C Screening 1978 Pap Smear 1981 Cervical Cancer Screening 1990 HPV/Cotest 1990 Mammogram 2000 Pneumococcal Vaccine: 50+ Years (1 of 1 - PCV) 2010 Zoster Vaccines (1 of 2) 2010 COVID-19 Vaccine ( season) 2024 12/25/2022, 12/06/2021, 07/06/2021, Additional history exists Influenza Vaccine (#1) 2025 , 05/23/2021, 07/25/2019, Additional history exists DTaP/Tdap/Td Vaccines [...] patient's age to complete this topic Meningococcal B Vaccine Aged Out No l onger eligible based on patient's age to complete this topic Meningococcal Vaccine Aged Out No gaston xochitl eligible based on patient's age to complete this topic RSV under 20 months Aged Out No longe r eligible based on patient's age to complete this topic Rotavirus Vaccines Aged Out No longer eligible based on patient's age to complete this topic Insurance [facility] (O D-SNP) [place]IL[place] RIVAS [id number]
[2025-03-20 14:14] VITALS: BP 102/56; PULSE 99; O2SAT 97; BMI 33.2
--- NOTE | 2025-03-20 14:14 | MHC.OFFVIS ---
Vital Signs 03/20/25 14:14 Height 5 ft 3 in Weight 187 lb 2.759 oz BMI 33.2 BP 102/56 L Blood Pressure Location Lt brachial Position Sitting Pulse 99 Pulse Source Pulse Oximeter Pulse Oximetry (%) 97 Oxygen Delivery Method Room Air Intake Visit Reasons: Type 2 diabetes mellitus without complications Intake Note: NEW Patient presents today to establish treatment for Type 2 Diabetes Mellitus: Last Diabetic eye exam was on: Last exam was over 1 year ago. Patient would like a referral. 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 Accompanied by: Self / Same As Patient Allergies Penicillins Allergy (Verified 03/20/25 14:20) Weakness Medication List - Last Reconciled 03/20/25 by Michelle Curran PA-C albuterol sulfate 90 mcg/actuation 2 puffs inhalation Q4-6H PRN blood sugar diagnostic (FreeStyle Lite Strips) Use 1 test strip once a day blood-glucose meter (FreeStyle Lite Meter kit) as directed cholecalciferol (vitamin D3) 50 mcg PO DAILY dapaglifloz propaned-metformin 10-1,000 mg ER (Xigduo XR) 1 tab PO DAILY dulaglutide (Trulicity) 0.75 mg (0.5 mL) subcut QWEEK lancets (FreeStyle Lancets) Use 1 lancet once a day lisinopril 10 mg PO DAILY loratadine 10 mg PO DAILY pioglitazone 45 mg PO DAILY pravastatin 40 mg PO DAILY HPI HPI Type 2 diabetes mellitus without complications: Details: Patient is a 64-year-old female with a significant past medical history of type 2 diabetes, hypertension, hyperlipidemia, chronic kidney disease presenting today for consult regarding her diabetes. Endo: Dm-was diagnosed with diabetes around 2014. Most recent A1c was 8.8. She is currently managed with pioglitazone 45 mg daily, Xigduo XR 10-1000 mg daily has tried- metformin by itself but high doses caused GI distress and farxiga CGM- never had one CV: Blood pressure today in the office is 102/56. She is on lisinopril 10 mg daily. Cholesterol is managed with pravastatin 40 mg daily [facility] Medical History (Updated 02/09/25 @ 13:47 by Dinorah Martínez RN) Obesity due to excess calories Hyperlipidemia associated with type 2 diabetes mellitus Vitamin D deficiency Dyslipidemia Hypertension CKD (chronic kidney disease) stage 3, GFR 30-59 ml/min Diabetic nephropathy associated with type 2 diabetes mellitus Diabetes type 2, controlled Surgical History Hx of colonoscopy Hx of tubal ligation Family History Father No problems noted. Mother Cancer Social History Housing: Apartment Alcohol intake: current Alcohol intake frequency: holidays/special occasions only Patient Tobacco Use Status: Never used Tobacco e-Cigarette/Vaping Use: Never Used Second Hand Smoke Exposure: No service: No Current occupational status: disabled Cognitive needs: No Hearing needs: No Vision needs: No Physical Exam Vital Signs: Last Vital Signs Pulse 99 03/20/25 14:14 BP 102/56 L 03/20/25 14:14 Pulse Ox 97 03/20/25 14:14 Oxygen Delivery Method Room Air 03/20/25 14:14 BMI result Body Mass Index 33.2 Const Orientation/consciousness: patient oriented x3 HEENT Ears: hearing grossly normal bilaterally Neck Thyroid: Thyroid normal Lymphatic: no lymphadenopathy noted Resp Auscultation: clear to auscultation bilaterally Cardio Rate: regular rate Rhythm: regular rhythm Heart sounds: S1 normal heart sound present and S2 normal heart sound present Skin General skin exam: no rashes or lesions noted Neuro General: patient oriented x3, gait normal and no focal motor deficits Results Reviewed Results Reviewed: Laboratory Tests 01/18/23 01/29/25 11:57 16:18 Creatinine 1.04 Estimated GFR 54 Hgb A1c (Clinic) 8.8 H Assessment & Plan Assessment & Plan (1) Diabetes type 2, controlled: Code(s): E11.9 - Type 2 diabetes mellitus without complications Category: Medical Plan: About 70 minutes was spent today in zdis-ex-mgsk time today reviewing the pathophysiology of diabetes, the differences between type 1 and type 2 diabetes and complications associated with diabetes including but not limited to kidney disease, blindness, increased risk of amputations, infections, stroke, heart attack etc.. I have answered his questions to the best of my ability. We will start Trulicity. We discussed risks and benefits and adverse effects of the medication. Continue current regimen otherwise She was shown how to use Trulicity today. I have started a CGM with her today. I download of the [employer] majo and provided her sensor. We discussed diet changes. We will do a short term follow up in 1 month. Sooner if needed. (2) Dyslipidemia: Code(s): E78.5 - Hyperlipidemia, unspecified Category: Medical Plan: Continue current regimen (3) Essential hypertension: Code(s): I10 - Essential (primary) hypertension Category: Medical Plan: WNL. Medications: New dulaglutide (Trulicity) 0.75 mg (0.5 mL) subcut QWEEK 2 mL 3RF Coding Level of Care Code New Pt Level 5 (55707) Complex EM visit Add On G2211 Diagnoses Diabetes type 2, controlled E11.9 Dyslipidemia E78.5 Essential hypertension I10
[2025-03-20 14:26] LABS: Glucose, Whole Blood 226 mg/dL (60-115)
== END 2025-03-20 15:14 | disposition home or self-care (01) ==
LOC: HO.ENCR 14:11
PROVIDERS: PCP Internal Medicine; Visit Provider Physician Assistant
DX: E11.9 Type 2 diabetes mellitus without complications (principal); E78.5 Hyperlipidemia, unspecified; I10 Essential (primary) hypertension

== ENCOUNTER → 2025-03-20 14:10 | Outpatient (BNVA) | payer OTHER, SELFPAY | PROVIDERS: PCP Internal Medicine; Visit Provider Physician Assistant | DX: I12.9 Hypertensive chronic kidney disease with stage 1 through stage 4 chronic kidney disease, or unspecified chronic kidney disease (principal); E11.22 Type 2 diabetes mellitus with diabetic chronic kidney disease; N18.9 Chronic kidney disease, unspecified; E78.5 Hyperlipidemia, unspecified; Z79.84 Long term (current) use of oral hypoglycemic drugs; Z79.899 Other long term (current) drug therapy | CPT/HCPCS: 82947; 99202 ==

== ENCOUNTER 2025-04-24 13:47 | Outpatient (AMB) | payer OTHER, SELFPAY ==
--- OUTSIDE RECORDS SUMMARY | 2025-02-11 03:30 | XMS_ITS ---
Author Organization [facility] Address [address] [place] [address] Care Team Providers Care Atm Manager Name Role Phone Jolene Stein Primary Care Provider UnavailChris Coello [phone] REASON FOR VISIT screening,hx polyps,fam hx colon ca Encounters Encounter Location Date Provider Diagnosis [facility] Outpatient [address] [place] [phone] 02/11/2025 Chris Leblanc Plan Of Treatment Next Appt Details Provider Name:Chris Leblanc , 05/18/2025 09:30:00 AM, [address] [place] [address], [phone], Progress Notes * BETH ELIASDOB:01/1961 (64 yo F)Acc No.[id number]:02/11/2025 COLON WITH MAC Patient: Toby BETH TOVAR Provider: Toby Leblanc MD :1960 A ge:64 Y S ex:Female Date:02/11/2025 Address:[address] [place] [address] Pcp:Jolene Richter Subjective: * Chief Complaints: * [...] 02/11/2025 Generated for Dionna guerrier/Theresa/Becky on: 0 04/24/2025 02:16 PM EDT
--- NOTE | 2025-04-24 13:52 | A.OFFVIS_ITS ---
Vital Signs 04/24/25 13:54 Height 5 ft 3 in Weight 187 lb 6.287 oz BMI 33.2 BP 96/50 L Blood Pressure Location Lt brachial Position Sitting Pulse 93 Pulse Source Pulse Oximeter Pulse Oximetry (%) 99 Oxygen Delivery Method Room Air Intake Visit Reasons: DM Intake Note: Patient present today for Type 2 Diabetes Mellitus Last Diabetic eye exam: Last exam was over 1 year ago, patient is planning on scheduling exam soon. 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 Accompanied by: Self / Same As Patient Allergies Penicillins Allergy (Verified 04/24/25 13:57) Weakness Medication List - Last Reconciled 04/24/25 by Michelle Curran PA-C albuterol sulfate 90 mcg/actuation 2 puffs inhalation Q4-6H PRN blood sugar diagnostic (FreeStyle Lite Strips) Use 1 test strip once a day blood-glucose meter (FreeStyle Lite Meter kit) as directed cholecalciferol (vitamin D3) 50 mcg PO DAILY dapaglifloz propaned-metformin 10-1,000 mg ER (Xigduo XR) 1 tab PO DAILY dulaglutide (Trulicity) 0.75 mg (0.5 mL) subcut QWEEK lancets (FreeStyle Lancets) Use 1 lancet once a day loratadine 10 mg PO DAILY pioglitazone 45 mg PO DAILY pravastatin 40 mg PO DAILY HPI HPI DM: Details: Patient is a 64-year-old female with a significant past medical history of type 2 diabetes, hypertension, hyperlipidemia, chronic kidney disease presenting today for consult regarding her diabetes. Endo: Dm-was diagnosed with diabetes around 2014. Most recent A1c was 8.8 and today it is 8.4. She is currently managed with pioglitazone 45 mg daily, Xigduo XR 10-1000 mg daily, Trulicity 0.75 mg weekly States that she has not yet started the Trulicity because she has a colonoscopy in a couple weeks and did not want to start it before then has tried- metformin by itself but high doses caused GI distress and farxiga CGM- never had one, gave a sample last time and very hyperglycemic 0%, hyperglycemic 26%, in range 74%, hypoglycemic 0%. She found this very helpful to help lower her blood sugars. CV: Blood pressure today in the office is 96/50. She is on lisinopril 10 mg daily. Cholesterol is managed with pravastatin 40 mg daily [facility] Medical History (Updated 02/09/25 @ 13:47 by Dinorah Martínez RN) Obesity due to excess calories Hyperlipidemia associated with type 2 diabetes mellitus Vitamin D deficiency Dyslipidemia Hypertension CKD (chronic kidney disease) stage 3, GFR 30-59 ml/min Diabetic nephropathy associated with type 2 diabetes mellitus Diabetes type 2, controlled Surgical History Hx of colonoscopy Hx of tubal ligation Family History Father No problems noted. Mother Cancer Social History Housing: Apartment Alcohol intake: current Alcohol intake frequency: holidays/special occasions only Patient Tobacco Use Status: Never used Tobacco e-Cigarette/Vaping Use: Never Used Second Hand Smoke Exposure: No service: No Current occupational status: disabled Cognitive needs: No Hearing needs: No Vision needs: No Physical Exam Vital Signs: Last Vital Signs Pulse 93 04/24/25 13:54 BP 96/50 L 04/24/25 13:54 Pulse Ox 99 04/24/25 13:54 Oxygen Delivery Method Room Air 04/24/25 13:54 BMI result Body Mass Index 33.2 Const Orientation/consciousness: patient oriented x3 HEENT Ears: hearing grossly normal bilaterally Neck Thyroid: Thyroid normal Lymphatic: no lymphadenopathy noted Resp Auscultation: clear to auscultation bilaterally Cardio Rate: regular rate Rhythm: regular rhythm Heart sounds: S1 normal heart sound present and S2 normal heart sound present GI Inspection: Yes normal to inspection Palpation (GI): Soft to palpation and Other GI palpation findings present (nontender, no cva tenderness) Auscultation: normoactive bowel sounds Rectal Exam - Female: deferred Skin General skin exam: no rashes or lesions noted Neuro General: patient oriented x3, gait normal and no focal motor deficits Results AMB Hemoglobin A1c AMB Hemoglobin A1c 8.4 % Last Edit by ZAFAR Saxena on 04/24/25 14:10 Results Reviewed Results Reviewed: Laboratory Last Values Glucose (Clinic) 228 mg/dL (60-115) H 04/24/25 13:59 Laboratory Tests 01/18/23 01/29/25 03/20/25 11:57 16:18 14:23 Creatinine 1.04 Estimated GFR 54 Glucose (Clinic) 226 H Hgb A1c (Clinic) 8.8 H Triglycerides 157 Cholesterol 170 LDL Cholesterol, Calc 85 HDL Cholesterol 54 Assessment & Plan Assessment & Plan (1) Essential hypertension: Code(s): I10 - Essential (primary) hypertension Category: Medical Plan: reduce lisinopril to 5 mg will monitor bps at home and if still low, stop medication all together will call me (2) Diabetes type 2, controlled: Code(s): E11.9 - Type 2 diabetes mellitus without complications Category: Medical Plan: Improved numbers with using a CGM. I did give her 2 more samples today in the office. She will start Trulicity after her colonoscopy We will continue current regimen Follow up in 3 months. Labs prior to appointment. Patient understands and agrees with the plan. Orders: Orders Comprehensive [place]. Panel Fast Today E11.29 - Type 2 diabetes mellitus with other diabetic kidney complication, I10 - Essential (primary) hypertension, R80.9 - Proteinuria, unspecified AMB Hemoglobin A1c Today E11.29 - Type 2 diabetes mellitus with other diabetic kidney complication, R80.9 - Proteinuria, unspecified, Z13.9 - Encounter for screening, unspecified Hemoglobin A1c Today E11.29 - Type 2 diabetes mellitus with other diabetic kidney complication, I10 - Essential (primary) hypertension, R73.01 - Impaired fasting glucose, R80.9 - Proteinuria, unspecified Microalbumin, Random (w Creat) Today E11.29 - Type 2 diabetes mellitus with other diabetic kidney complication, I10 - Essential (primary) hypertension, R80.9 - Proteinuria, unspecified Medications: New lisinopril 5 mg PO DAILY 90 tabs 0RF Coding Level of Care Code Est Pt Level 4 (30531) Complex EM visit Add On G2211 Diagnoses Essential hypertension I10 Diabetes type 2, controlled E11.9
[2025-04-24 13:54] VITALS: BP 96/50; PULSE 93; O2SAT 99; BMI 33.2
[2025-04-24 14:03] LABS: Glucose, Whole Blood 228 mg/dL (60-115)
--- OUTSIDE RECORDS SUMMARY | 2025-04-24 14:16 | XMS_ITS | Patient Health Record ---
Author Organization [facility] Address [address] [place] [address] Care Team Providers Care Credit Officer Name Role Phone Jolene Stein Primary Care Provider Chris Lopez Unavailable [phone] Allergies Allergen (clinical drug ingredient) Drug/Non Drug [...] Problem Status W/U Status Risk Notes Problem 094434336 Encounter for screening for malignant neoplasm of colon (Z12.11) Active confirmed Problem Preprocedural examination (943934405433614) Preprocedural examination (Z01.818) Active confirmed Problem 192691504 Family history o f colon cancer (Z80.0) Active confirmed Problem 309498970 Abdominal pain, RUQ (R10.11) Active confirmed Problem 898314728 Hx of adenomatou s colonic polyps (Z86.010) Active confirmed Problem 012623294 Abdominal pain, right upper quadrant (R10.11) Active confirmed Vital Signs Blood pressure diastolic 11 mm Hg 11/04/2024 Height 62 in 11/04/2024 Blood pressure systolic 111 mm Hg 11/04/2024 Weight 188 lbs 11/04/2024 BMI 34.38 kg/m2 11/04/2024 Procedures Procedure Date Ordered Date Performed Result Body Sit e COLONOSCOPY 11/04/2024 N/A Encounters Encounter Location Date Provider Diagnosis [facility] [address] [place] [phone] 11/04/2024 Chris Leblanc Hx of adenomatous colonic polyps Z86.010 ; Preprocedural examination Z01.818 ; Encounter for screening for malignant neoplasm of colon Z12.11 and Family history of colon cancer Z80.0 [facility] [address] [place] [phone] 11/04/2024 Chris Leblanc [facility] [address] [place] [phone] 02/10/2025 Chris Leblanc [facility] [address] [place] [phone] 02/16/2025 Chris Leblanc Assessments Encounter Date Diagnosis (ICD Code) Assessment Notes Treatment Notes Treatment Clinical Notes Section Notes 11/04/2024 Preprocedural examination (ICD-10 - Z01.818) Overall, Beth appears quite well. She is not having [...] adjustment of her medications for the procedure. Beth was comfortable with this plan. Thank you again for allowing me to participate in Beth's care. I shall continue to keep you advised of her progress. 11/04/2024 Hx of adenomatous colonic polyps (ICD-10 - Z86.010) Overall, Beth appears quite well. She is not having [...] adjustment of her medications for the procedure. Beth was comfortable with this plan. Thank you again for allowing me to participate in Beth's care. I shall continue to keep you advised of her progress. 11/04/2024 Encounter for screening for malignant neoplasm of colon (ICD-10 - Z12.11) Do not take the XigDuo for 3 days before the colonosocpy Do not take the Pioglitazone the night before or on the day of the colonoscopy Overall, Beth appears quite well. She is not having [...] adjustment of her medications for the procedure. Beth was comfortable with this plan. Thank you again for allowing me to participate in Beth's care. I shall continue to keep you advised of her progress. 11/04/2024 Family history of colon cancer (ICD-10 - Z80.0) Overall, Beth appears quite well. She is not having [...] adjustment of her medications for the procedure. Beth was comfortable with this plan. Thank you again for allowing me to participate in Beth's care. I shall continue to keep you advised of her progress. Plan Of Treatment Pending Test Test Name Order Date COLONOSCOPY 11/04/2024 Future Test Test Name Order Date COLONOSCOPY 08/19/2013 COLONOSCOPY 01/10/2019 Next Appt Details Provider Name:Chris Leblanc , 05/18/2025 09:30:00 AM, [address] [place] [address] , [place], [place], [id number], Insurance Providers Payer Name Payer Address Payer Phone Subscriber Number Group Number Insured Name Patient Relationship to Insured Coverage Start Date Coverage End Date [facility] [address] [place] [address] [id number] BETH ELIAS Self - patient is the insured MEDICAID OF [facility] [address] [place] [address] [phone] [id number] CURT BETH Self - patient is the insured Medical (General) History Medical History History ICD Code Screening colonoscopy 05-11-2008--1 small tubular adenoma removed NIDDM Hypertension Denies history of [place], stroke, kidney dis ease Asthma--seasonal Fibromyalgia Osteoarthritis Negative colonoscopy in 10/09 14 except for diverticulosis and internal hemorrhoids Hyperlipidemia History of sleep apnea Neg. abdominal U/S in 09/2018 Negative screening colonoscopy in 2018 Surgical History Surgery Date(Month/Year) Foot surgery Tubal ligation
--- OUTSIDE RECORDS SUMMARY | 2025-04-24 14:16 | XMS_ITS | Clinical Summary ---
Author Organization [employer] Address [address] [facility] [address] [place] [address] Care Team Providers Care Glass Tube Bender Name Role Phone Unavailable Primary Care Provider [...] patient's age to complete this topic Insurance [facility] LONG TERM OPTIONS (O D-SNP) CAMILO RIVAS [id number]
== END 2025-04-24 14:15 | disposition home or self-care (01) ==
LOC: HO.ENCR 13:48
PROVIDERS: PCP Internal Medicine; Visit Provider Physician Assistant
DX: E11.29 Type 2 diabetes mellitus with other diabetic kidney complication (principal); R80.9 Proteinuria, unspecified; I10 Essential (primary) hypertension

== ENCOUNTER → 2025-04-24 13:47 | Outpatient (BNVA) | payer OTHER, SELFPAY | PROVIDERS: PCP Internal Medicine; Visit Provider Physician Assistant | DX: E11.29 Type 2 diabetes mellitus with other diabetic kidney complication (principal); R80.9 Proteinuria, unspecified; I10 Essential (primary) hypertension; Z79.84 Long term (current) use of oral hypoglycemic drugs; Z79.899 Other long term (current) drug therapy | CPT/HCPCS: 82947; 83036; 99212 ==

== ENCOUNTER 2025-05-18 08:01 | Day surgery (SDC) | payer OTHER, SELFPAY ==
--- OUTSIDE RECORDS SUMMARY | 2023-05-23 11:30 | XMS_ITS | Continuity of Care Document ---
Author Organization [facility] Address [address] [place] [address] Phone Care Team Providers Care Manufacturing Controls Engineer Name Role Phone Cecy Venegas DMD Unavailable Unavailab le Allergies, Adverse Reactions, Alerts Substance Reaction Status Criticality No Known Allergies Active No Inform ation Medications Medication Instructions Dosage Effective Dates (start - stop) Status Comments ivermectin 3 mg tablet take 4 tablet by oral route once 12 MG - Active Claritin 10 mg tablet take 1 tablet by oral route every day 10 MG - Active Calcet Creamy Bites 500 mg calcium-400 unit chewable tablet take 1 tablet by oral route 2 times every day - Active not available Centrum Silver Women 8 mg iron-400 mcg-300 mcg tablet take one tablet daily - Active not available Procedures Procedure Date Periodontal Scaling And Root Planing-Fou r Or More Periodontal Scaling And Root Planing-Fou r Or More Oral Hygiene Instructions E3 Periodontal Scaling And Root Planing-Fou r Or More Periodontal Scaling And Root Planing-Fou r Or More Intraoral-Complete Series (Including Bit ewings) Periodic Oral Evaluation-Established Pat ient Dental case management motivational interviewing Caries risk assessment & documentation, high risk E3 OFFICE/OUTPATIENT VISIT, EST 15 MIN ULTRASOUND BREAST COMPLETE UNLISTED E&M SERVICE ROUTINE VENIPUNCTURE SPECIMEN HANDLING OFFICE/OUTPATIENT VISIT, EST 15 MIN UNLISTED E&M SERVICE ROUTINE VENIPUNCTURE SPECIMEN HANDLING MED LIST DOCD IN [facility] RVW MEDS BY RX/DR IN [facility] PREV VISIT, EST, AGE 40-64 OFFICE/OUTPATIENT VISIT, EST 15 MIN UNLISTED E&M SERVICE ROUTINE VENIPUNCTURE SPECIMEN HANDLING OFFICE/OUTPATIENT VISIT, EST 15 MIN MED LIST DOCD IN [facility] RVW MEDS BY RX/DR IN [facility] OFFICE/OUTPATIENT VISIT, EST 15 MIN UNLISTED E&M SERVICE ROUTINE VENIPUNCTURE SPECIMEN HANDLING MAMMOGRAM, SCREENING VISUAL ACUITY SCREEN SYST BP LT 130 MM HG DIAST BP < 80 MM HG AMNT PAIN NOTED; NONE PRSNT Urine Dipstick OFFICE/OUTPATIENT VISIT, EST 15 MIN IMMUNIZATION ADMIN FLU VACCINE, 3 YRS & >, IM B10 OFFICE/OUTPATIENT VISIT, EST 15 MIN MED LIST DOCD IN [facility] RVW MEDS BY RX/DR IN [facility] B10 UNLISTED E&M SERVICE ROUTINE VENIPUNCTURE SPECIMEN HANDLING MED LIST DOCD IN [facility] RVW MEDS BY RX/DR IN [facility] Human Papillomavirus HPV, High-Risk Type s OFFICE/OUTPATIENT VISIT, EST 15 MIN MED LIST DOCD IN [facility] RVW MEDS BY RX/DR IN [facility] OFFICE/OUTPATIENT VISIT, EST 15 MIN B1 MED LIST DOCD IN [facility] RVW MEDS BY RX/DR IN [facility] OFFICE/OUTPATIENT VISIT, EST 15 MIN MED LIST DOCD IN [facility] RVW MEDS BY RX/DR IN [facility] OFFICE/OUTPATIENT VISIT, EST 15 MIN B10 UNLISTED E&M SERVICE ROUTINE VENIPUNCTURE SPECIMEN HANDLING MED LIST DOCD IN [facility] RVW MEDS BY RX/DR IN [facility] OFFICE/OUTPATIENT VISIT, EST 10 MIN B10 MED LIST DOCD IN [facility] RVW MEDS BY RX/DR IN [facility] VISUAL ACUITY SCREEN OFFICE/OUTPATIENT VISIT, EST 15 MIN B10 OFFICE/OUTPATIENT VISIT, EST 15 MIN Intraoral-Complete Series (Including Bit ewings) Comprehensive Oral Evaluation - New Or E st Pt Caries risk assessment & documentation, mod risk MED LIST DOCD IN [facility] RVW MEDS BY RX/DR IN [facility] OFFICE/OUTPATIENT VISIT, EST 15 MIN UNLISTED E&M SERVICE ROUTINE VENIPUNCTURE SPECIMEN HANDLING MED LIST DOCD IN [facility] RVW MEDS BY RX/DR IN [facility] VISUAL ACUITY SCREEN Urine Dipstick PREV VISIT, EST, AGE 40-64 IMMUNIZATION ADMIN FLU VACCINE, 3 YRS & >, IM TEST FOR BLOOD, FECES OFFICE/OUTPATIENT VISIT, EST 10 MIN OFFICE/OUTPATIENT VISIT, NEW FOCUSED 10 MIN OFFICE/OUTPATIENT VISIT, EST 25 MIN C37 C25 OFFICE/OUTPATIENT VISIT, EST 15 MIN C16 Urine Dipstick OFFICE/OUTPATIENT VISIT, EST 25 MIN IMMUNIZATION ADMIN FLU VACCINE, 3 YRS & >, IM E3 B10 OFFICE/OUTPATIENT VISIT, EST 15 MIN E3 UNLISTED E&M SERVICE ROUTINE VENIPUNCTURE SPECIMEN HANDLING OFFICE/OUTPATIENT VISIT, EST 15 MIN E3 OFFICE/OUTPATIENT VISIT, EST 15 MIN UNLISTED E&M SERVICE ROUTINE VENIPUNCTURE SPECIMEN HANDLING OFFICE/OUTPATIENT VISIT, EST 15 MIN UNLISTED E&M SERVICE ROUTINE VENIPUNCTURE SPECIMEN HANDLING OFFICE/OUTPATIENT VISIT, EST 15 MIN OFFICE/OUTPATIENT VISIT, EST 15 MIN UNLISTED E&M SERVICE ROUTINE VENIPUNCTURE SPECIMEN HANDLING VISUAL ACUITY SCREEN OFFICE/OUTPATIENT VISIT, EST 15 MIN OFFICE/OUTPATIENT VISIT, EST 15 MIN TDAP Vaccine 7 Yrs Thru 18 Yrs And 11 Mo s IM OFFICE/OUTPATIENT VISIT, EST 15 MIN OFFICE/OUTPATIENT VISIT, EST 15 MIN UNLISTED E&M SERVICE SPECIMEN HANDLING ROUTINE VENIPUNCTURE ASSAY TEST FOR BLOOD, FECAL OFFICE/OUTPATIENT VISIT, EST 15 MIN OFFICE/OUTPATIENT VISIT, EST 25 MIN OFFICE/OUTPATIENT VISIT, NEW 20 MIN Advance Directives Directive Yes / No Effective Date File Name No Information Encounters Encounter Description Practice Location Reason(s) For Visit Diagnoses Date Provider Providers Copied on Encounter [employer] [facility], [address] [place] [address], [id number], [place] tel:[phone] [facility] Chronic periodontitis, generalized, moderate Oct-0 3 Venegas DMD Cecy. [address] [place], [place], [id number], [place]. tel:[phone] [facility], [address] [place] [address], [id number], [place] tel:[phone] [facility] Chronic periodontitis, generalized, moderate Sep-2 3 Venegas DMD Cecy. [address] [place], [place], [id number], [place]. tel:[phone] [facility], [address] [place] [address], [id number], [place] tel:[phone] [facility] Encounter for dental examination and cleaning with abnormal findingsOther specified counselingRisk for dental caries, high Feb- 3 Kin Bruner. [address] [place] [address], [address], [place]. tel:[phone] [facility], [address] [place] [address], [id number], [place] tel:[phone] [facility] Encounter to discuss test resultsInconcl usive mammogram 3 Salima Keenan. [address] [place], [address], . tel:[phone] [facility], [address] [place] [address], [id number], [place] tel:[phone] [facility] Inconclusive mammogram 3 Salima Keenan. [address] [place], [address], [place]. tel:[phone] OFFICE/OUTPA TIENT VISIT, EST 15 MIN [facility], [address] [place] [address], [id number], [place] tel:[phone] [facility] Lab results (chief complaint) Inconclusive mammogramEncou nter to discuss test resultsHyperli pidemia, unspecified 3 Salima Keenan. [address] [place], [address], [place]. tel:[phone] UNLISTED E&M SERVICE [facility], [address] [place] [address], [id number], [place] tel:[phone] [facility] Encounter for preprocedural laboratory examination 3 Environmental Emergencies Assistant [facility]. [address] [place] [address], [id number], [place]. tel:[phone] OFFICE/OUTPA TIENT VISIT, EST 15 MIN [facility], [address] [place] [address], [id number], [place] tel:[phone] [facility] lab results (chief complaint) Hyperlipidemia , unspecifiedEnc ounter to discuss test results 2 Salima Keenan. [address] [place], [address], [place]. tel:[phone] UNLISTED E[employer] SERVICE [facility], [address] [place] [address], [id number], [place] tel:[phone] [facility] BLOOD DRAW (chief complaint) Encounter for preprocedural laboratory examination 2 [employer] Emergen[employer] [facility]. [address] [place] [address], [id number], [place]. tel:[phone] PREV VISIT, EST, AGE 40-64 [facility], [address] [place] [address], [id number], [place] tel:[phone] [facility] cpe (chief complaint) Body mass index (BMI) 24.0-24.9, adultPrediabet esHyperlipidem ia, unspecifiedScr een for STD (sexually transmitted disease)Screen ing mammogram for breast cancerScreenin g, anemia, deficiency, ironThyroid disorder screenColon cancer screeningWell adult exam 2 Salima Keenan. [address] [place], [address], [place]. tel:[phone] OFFICE/OUTPA TIENT VISIT, EST 15 MIN [facility], [address] [place] [address], [id number], [place] tel:[phone] [facility] Telehealth Consultation (chief complaint)lab results (chief complaint) Eosinophilia, unspecified typeHyperlipid emia, unspecified 1 Tammy Flores. [address] [place] [address], [id number], [place]. tel:[phone] UNLISTED E[employer]M SERVICE [facility], [address] [place] [address], [id number], [place] tel:[phone] [facility] lab draw (chief complaint) Encounter for preprocedural laboratory examination 1 Environmental Emergencies Assistant Avani. [address] [place] [address], [id number], [place]. [phone] OFFICE/OUTPA TIENT VISIT, EST 15 MIN [facility], [address] [place] [address], [id number], [place] tel:[phone] [facility] mammo results (chief complaint) Eosinophilia, unspecified type 1 Tammy Flores. [address] [place] [address], [id number], [place]. tel:[phone] OFFICE/OUTPA TIENT VISIT, EST 15 MIN [facility], [address] [place] [address], [id number], [place] tel:[phone] [facility] lab results (chief complaint) Hyperlipidemia , unspecifiedEos inophilia, unspecified typeEncounter for other screening for malignant neoplasm of breastEncounte r for screening for malignant neoplasm of colon 1 Tammy Flores. [address] [place] [address], [id number], [place]. tel:[phone] UNLISTED E[employer]M SERVICE [facility], [address] [place] [address], [id number], [place] tel:[phone] [facility] Encounter for preprocedural laboratory examination 1 [employer] [facility]. [address] [place], [place], [id number], [place]. tel:[phone] OFFICE/OUTPA TIENT VISIT, EST 15 MIN [facility], [address] [place] [address], [id number], [place] tel:[phone] [facility] preventive exam (chief complaint) Encounter for preprocedural laboratory examinationEnc ounter for exam of eyes and vision w/o abnormal findingsBody mass index (BMI) 23.0-23.9, adultEosinophi liaHyperlipide bertrand, unspecifiedPre diabetesEncoun ter for general adult medical examination without abnormal findingsEncoun ter for immunization 0 Tammy Flores. [address] [place] [address], [id number], [place]. [phone] OFFICE/OUTPA TIENT VISIT, EST 15 MIN [facility], [address] [place] [address], [id number], [place] tel:[phone] [facility] lab results (chief complaint) Hyperlipidemia , unspecifiedEos inophilia 0 Tammy Flores. [address] [place] [address], [id number], [place]. tel:[phone] UNLISTED [employer] SERV[employer] [facility], [address] [place] [address], [id number], [place] tel:[phone] [facility] Encounter for preprocedural laboratory examination 0 [employer] [facility]. [address] [place] [address], [id number], [place]. tel:[phone] OFFICE/OUTPA TIENT VISIT, EST 15 MIN [facility], [address] [place] [address], [id number], [place] tel:[phone] [facility] Pelvic exam./ stool drop off. (chief complaint) Screening for cervical cancerEncounte r for screening for human papillomavirus (HPV)Screening for colon cancer 0 Tammy Flores. [address] [place], [place], [id number], [place]. tel:[phone] OFFICE/OUTPA TIENT VISIT, EST 15 MIN [facility], [address] [place] [address], [id number], [place] tel:[phone] [facility] follow up (chief complaint) Body mass index (BMI) 25.0-25.9, adultEncounter for other screening for malignant neoplasm of breastEosinoph iliaScreening for colon cancerScreenin g for cervical cancer 0 Tammy Flores. [address] [place] [address], [id number], [place]. tel:[phone] OFFICE/OUTPA TIENT VISIT, EST 15 MIN [facility], [address] [place] [address], [id number], [place] tel:[phone] [facility] Lab results. (chief complaint) Hyperlipidemia , unspecifiedEos inophilic leukocytosis 0 Emeterio Schulte. [address] [place] [address], [id number], [place]. tel:[phone] OFFICE/OUTPA TIENT VISIT, EST 15 MIN [facility], [address] [place] [address], [id number], [place] tel:[phone] [facility] f/u on labs (chief complaint) Eosinophilic leukocytosisHy perlipidemia, unspecifiedScr eening for breast cancerRefused influenza vaccine 9 Emeterio Schulte. [address] [place], [place], [id number], [place]. tel:[phone] UNLISTED E[employer]M SERVICE [facility], [address] [place] [address], [id number], [place] tel:[phone] [facility] Encounter for preprocedural laboratory examination 0 9 [employer]gen[employer] [facility]. [address] [place] [address], [id number], [place]. tel:[phone] OFFICE/OUTPA TIENT VISIT, EST 10 MIN [facility], [address] [place], [place], [id number], [place] tel:[phone] [facility] Lab results (chief complaint) Hyperlipidemia , unspecifiedOth er elevated white blood cell count 9 Noreen Balderrama. [address] [place], [address], [place]. tel:[phone] OFFICE/OUTPA TIENT VISIT, EST 15 MIN [facility], [address] [place], [place], [id number], [place] tel:[phone] [facility] preventive exam (chief complaint) Routine physical examinationScr eening for breast cancerAbnormal vision screen 9 Ezequiel Howe. [address] [place], [address], [place]. tel:[phone] OFFICE/OUTPA TIENT VISIT, EST 15 MIN [facility], [address] [place], [place], [id number], [place] tel:[phone] [facility] Cholesterol f/u (chief complaint) Hyperlipidemia , unspecifiedAnn ual physical examBody mass index (BMI) 23.0-23.9, adult Nov-3 0 9 Kathy Vivas. [address] [place], [address], [place]. tel:[phone] [facility], [address] [place] [address], [id number], [place] tel:[phone] [facility] Encounter for dental exam and cleaning w/o abnormal findingsRisk for dental caries, moderate Nov-3 0- 9 Katia [place]. [address] [place], [place], [id number], [place]. tel:[phone] OFFICE/OUTPA TIENT VISIT, EST 15 MIN [facility], [address] [place], [place], [id number], [place] tel:[phone] [facility] f/u on lab results (chief complaint) No Information 8 Teo Cesar. [address] [place], [address], [place]. tel:[phone] UNLISTED E[employer]M SERVICE [facility], [address] [place], [place], [id number], [place] tel:[phone] [facility] LAB ONLY (chief complaint) Encounter for preprocedural laboratory examination 8 [employer]gen[employer] Assistant [facility]. [address] [place] [address], [id number], [place]. tel:[phone] PREV VISIT, EST, AGE 40-64 [facility], [address] [place], [place], [id number], [place] tel:[phone] [facility] preventive exam (chief complaint) Annual physical examScreening for colon cancerEncounte r for immunizationEn counter for exam of eyes and vision w/o abnormal findingsMyopia of both eyesEncounter for preprocedural laboratory examinationHem aturia, unspecified type 8 No Information OFFICE/OUTPA TIENT VISIT, EST 10 MIN [facility], [address] [place], [place], [id number], [place] tel:[phone] [facility] Lab results (chief complaint) Follow up 8 Blair Membreno. [address] [place], [place], [id number], [place]. OFFICE/OUTPA TIENT VISIT, NEW FOCUSED 10 MIN [facility], [address] [place], [place], [id number], [place] tel:[phone] [facility] follow up (chief complaint) No Information 7 Deng HARRIS Pernell. . OFFICE/OUTPA TIENT VISIT, EST 25 MIN [facility], [address] [place], [place], [id number], [place] tel:[phone] [facility] 56 y/o female is c/o of upper abdominal pain X 2days (chief complaint) Epigastric abdominal painEncounter for immunization 7 No Information OFFICE/OUTPA TIENT VISIT, EST 15 MIN [facility], [address] [place], [place], [id number], [place] tel:[phone] [facility] f/u on pap results (chief complaint) Positive occult stool blood testEosinophil iaFollow up 7 Tammy Flores. [address] [place] [address], [id number], [place]. tel:[phone] OFFICE/OUTPA TIENT VISIT, EST 25 MIN [facility], [address] [place], [place], [id number], [place] tel:[phone] [facility] CPE with Pap (chief complaint) Encounter for preprocedural laboratory examinationAnn [facility] physical examAnnual physical exam 7 Tammy Flores. [address] [place] [address], [id number], [place]. tel:[phone] OFFICE/OUTPA TIENT VISIT, EST 15 MIN [facility], [address] [place] [address], [id number], [place] tel:[phone] [facility] f/u on lab results (chief complaint) Positive occult stool blood testOther hyperlipidemia 6 Tammy Flores. [address] [place] [address], [id number], [place]. tel:[phone] UNLISTED [employer] SERV[employer] [facility], [address] [place] [address], [id number], [place] tel:[phone] [facility] Encounter for preprocedural laboratory examination 6 [employer] [facility]. [address] [place] [address], [id number], [place]. tel:[phone] OFFICE/OUTPA TIENT VISIT, EST 15 MIN [facility], [address] [place] [address], [id number], [place] tel:[phone] [facility] f/u (chief complaint) Encounter for immunizationEn counter for other screening for malignant neoplasm of breastScreenin g for colon cancerPrediabe travon 6 Tammy Flores. [address] [place], [place], [id number], [place]. tel:[phone] OFFICE/OUTPA TIENT VISIT, EST 15 MIN [facility], [address] [place], [place], [id number], [place] tel:[phone] [facility] Follow up on lab test(s) (chief complaint) Hyperlipidemia DyslipidemiaFo llow-Up Lab Result 5 Diane Carver. [address] [place], [place], [id number], [place]. tel:[phone] UNLISTED [employer] [facility], [address] [place] [address], [id number], [place] tel:[phone] [facility] LABORATORY EXAM NOS [employer] [facility]. [address] [place], [place], [id number], [place]. tel:[phone] OFFICE/OUTPA TIENT VISIT, EST 15 MIN [facility], [address] [place] [address], [id number], [place] tel:[phone] [facility] follow up on labs (chief complaint) Hyperlipidemia DyslipidemiaPr ediabetes Supa June. [address] [place], [address], [place]. tel:[phone] UNLISTED [employer] SERV[employer] [facility], [address] [place] [address], [id number], [place] tel:[phone] [facility] No Information [employer] [facility]. [address] [place], [place], [id number], [place]. tel:[phone] OFFICE/OUTPA TIENT VISIT, EST 15 MIN [facility], [address] [place], [place], [id number], [place] tel:[phone] [facility] pap smear (chief complaint) Screening Breast CancerColon Cancer ScreeningHyper lipidemia Dyslipidemia 5 Tammy Flores. [address] [place], [place], [id number], [place]. tel:[phone] [facility], [address] [place] [address], [id number], [place] tel:[phone] [facility] No Information 4 Elle Benjamin. [address] [place], [place], [id number], [place]. tel:[phone] OFFICE/OUTPA TIENT VISIT, EST 15 MIN [facility], [address] [place] [address], [id number], [place] tel:[phone] [facility] follow up on lab test(s) (chief complaint) Follow-Up Lab Result 4 Tammy Flores. [address] [place], [place], [id number], [place]. tel:[phone] UN[employer]ED [employer] [facility], [address] [place] [address], [id number], [place] tel:[phone] [facility] lab (chief complaint) No Information 4 [employer] [facility]. [address] [place] [address], [id number], [place]. tel:[phone] OFFICE/OUTPA TIENT VISIT, EST 15 MIN [facility], [address] [place] [address], [id number], [place] tel:[phone] [facility] preventive exam (chief complaint) Complete Physical ExamHyperlipid emia DyslipidemiaPr ediabetes 4 Kathryn Sharma. [address] [place] [address], [id number], [place]. tel:[phone] OFFICE/OUTPA TIENT VISIT, EST 15 MIN [facility], [address] [place] [address], [id number], [place] tel:[phone] [facility] mammo results (chief complaint) Follow-Up Lab ResultVaccine TdaP 4 Tammy Flores. [address] [place], [place], [id number], [place]. tel:[phone] OFFICE/OUTPA TIENT VISIT, EST 15 MIN [facility], [address] [place] [address], [id number], [place] tel:[phone] [facility] x-ray results - tb reading (chief complaint) Abnormal PPD Test 4 Kathy Oliveiraesa. [address] [place], [address], [place]. tel:[phone] OFFICE/OUTPA TIENT VISIT, EST 15 MIN [facility], [address] [place] [address], [id number], [place] tel:[phone] [facility] lab results (chief complaint) Abnormal PPD TestScreening Breast Cancer 3 Tammy Flores. [address] [place] [address], [id number], [place]. tel:[phone] UNLISTED E[employer] SERVICE [facility], [address] [place] [address], [id number], [place] tel:[phone] [facility] No Information 3 Nurse Visit. [address] [place], [address], [place]. tel:[phone] [facility], [address] [place] [address], [id number], [place] tel:[phone] [facility] LABORATORY EXAM NOS 3 Aniket Amador. [address] [place], [address]. tel:[phone] OFFICE/OUTPA TIENT VISIT, EST 15 MIN [facility], [address] [place] [address], [id number], [place] tel:[phone] [facility] follow up on lab test(s) (chief complaint) Abnormal PPD TestScreening for lipoid disordersScree sacha Breast Cancer 3 Tammy Flores. [address] [place], [place], [id number], [place]. tel:[phone] OFFICE/OUTPA TIENT VISIT, EST 25 MIN [facility], [address] [place], [place], [id number], [place] tel:[phone] [facility] pap smear (chief complaint) Screening Cervix CancerUnspecif ied general medical examination 3 Tammy Flores. [address] [place], [place], [id number], [place]. tel:[phone] OFFICE/OUTPA TIENT VISIT, NEW 20 MIN [facility], [address] [place], [place], [id number], [place] tel:[phone] [facility] No Information 2 Edward CHISHOLM [facility]. . Family History Family Member Type Diagnosis Age At Onset Father Problem (finding) cancer of colon Problem (finding) No family history of St roke Problem (finding) No family history of As thma Problem (finding) No family history of Hy pertension Problem (finding) No family history of Di abetes mellitus Immunizations Vaccine Date Status Comments Flu (split) (3 yrs or older) not administ ered Source: New Immunization Record Zoster recombinant subunit kit, preservative free refused Source: New Immun ization Record Shingrix not administered Source: New Immunization Record Shingrix not administered Note: NOT I N STOCK ; Source: New Immunization Record Flu (split) (3 yrs or older) administered Source: New Immunization Record Flu (split) (3 yrs or older) refused Source: New Immunization Record Flu (split) (3 yrs or older) administered Source: New Immunization Record Flu (split) (3 yrs or older) administered Source: New Immunization Record Tdap administered Source: Source Unspecified flu (split) preservative free, 3 yrs or older cancelled Source: New Immuniz ation Record Payers Payer name Insurance type Covered green party ID Authoriza tion(s) Dental [facility] OP [id number] [facility] [id number] [employer] Kaylee ROJAS [id number] Other Enabling Services 11 [id number] [employer] 11 [id number] A[employer] MH[employer] 11 [id number] [employer] 11 [id number] [employer] 11 [id number] [employer] 11 [id number] [employer] 11 [id number] Social History Type Description Quantity Date Captured Comments Alcohol Use Details Unknown Caffeine Use Details Unknown Tobacco Use Status Current non-smoker Smoking Status Never smoker Non-Smoking Tobacco Use Details : No Details Available : No Details Available Sex Female Sexual Orientation Straight or heterosexual Gender Identity Female Vital Signs Date / Time: Height Weight BMI Pulse Rate Blood Pressure Temperature Respiratory Rate Body Surface Area Head Circumference Head Circ. Percentile Wt./Rodolfo. Percentile BMI percentile Pulse Ox Inhaled Ox 3:45 PM 69 /min 113/72 mm[Hg] Chief Complaint And Reason For Visit No Information Reason For Referral Reason For Referral No Information Plan Of Treatment Date Type Action Status Goal Chlamydia/GC, DN A Probe. Due on due Goal Lipid panel. Due on 024 due Goal Diabetes screening. Due on due Goal FOBT. Due on due Goal Colonoscopy. Due on 027 due Goal Zoster vaccine ( 1st). Due on due Goal Mammogram (Scree sacha); Bilateral. Due on due Goal COVID19 VACC. Due on 2022 due Goal COVID19 VACC (Ad ult). Due on due Goal Influenza vaccine. Due on due Goal Drug Screening. Due on due Goal TB Screening (PP D test). Due on due Goal PPD (TST). Due on due Goal Complete Physica l Exam. Due on due Goal PAP. Due on due Goal Shingrix. Due on due Goal FIT. Due on due Goal Tdap. Due on due Goal Mammogram Screening. Due on due Goal Depression scree sacha. Due on due Goal Pap/HPV testing. Due on due Goal Alcohol Screening. Due on due Goal FOBT. Due on due Goal Pap/HPV testing. Due on due Goal PPD (TST). Due on due Goal PAP. Due on due Goal Complete Physica l Exam. Due on due Goal Alcohol Screening. Due on due Goal Diabetes screening. Due on due Goal Tdap. Due on due Goal COVID19 VACC. Due on 2022 due Goal COVID19 VACC (Ad ult). Due on due Goal TB Screening (PP D test). Due on due Goal Shingrix. Due on due Goal Zoster vaccine ( 1st). Due on due Goal FIT. Due on due Goal Drug Screening. Due on due Goal Colonoscopy. Due on due Goal Mammogram Screening. Due on due Goal Influenza vaccine. Due on due Goal Depression scree sacha. Due on due Goal Lipid panel. Due on due Goal Lipid panel. Due on due Goal COVID19 VACC. Due on 2022 due Goal COVID19 VACC (Ad ult). Due on due Goal Tdap. Due on due Goal TB Screening (PP D test). Due on due Goal Drug Screening. Due on due Goal FIT. Due on due Goal FOBT. Due on due Goal Mammogram (Scree sacha); Bilateral. Due on due Goal Alcohol Screening. Due on due Goal Colonoscopy. Due on due Goal PAP. Due on due Goal Pap/HPV testing. Due on due Goal Shingrix. Due on due Goal Depression scree sacha. Due on due Goal PPD (TST). Due on due Goal Mammogram Screening. Due on due Goal Influenza vaccine. Due on due Goal Zoster vaccine ( ). Due on due Goal Diabetes screening. Due on due Goal Complete Physica l Exam. Due on due Goal Chlamydia/GC, DN A Probe. Due on due Goal Lipid panel. Due on 023 due Goal Tdap. Due on due Goal Depression scree sacha. Due on due Goal Complete Physica l Exam. Due on due Goal FOBT. Due on due Goal Shingrix. Due on due Goal TB Screening (PP D test). Due on due Goal Drug Screening. Due on due Goal Zoster vaccine ( ). Due on due Goal COVID19 VACC (Ad ult). Due on due Goal FIT. Due on due Goal COVID19 VACC. Due on 2022 due Goal Pap/HPV testing. Due on due Goal PAP. Due on due Goal Alcohol Screening. Due on due Goal Colonoscopy. Due on due Goal PPD (TST). Due on due Goal Mammogram Screening. Due on due Goal Influenza vaccine. Due on No due Goal Diabetes screening. Due on O due Goal Chlamydia/GC, DN A Probe. Due on due Goal Lipid panel. Due on 023 due Goal Pap/HPV testing. Due on due Goal COVID19 VACC. Due on 2021 due Goal Complete Physica l Exam. Due on due Goal COVID19 VACC (Ad ult). Due on due Goal PAP. Due on due Goal PPD (TST). Due on due Goal Tdap. Due on due Goal Colonoscopy. Due on due Goal Mammogram Screening. Due on due Goal Drug Screening. Due on due Goal Alcohol Screening. Due on Oc due Goal Influenza vaccine. Due on No due Goal TB Screening (PP D test). Due on due Goal Shingrix. Due on due Goal Depression scree sacha. Due on due Goal Zoster vaccine ( 1st). Due on due Goal FOBT. Due on due Goal FIT. Due on due Goal Diabetes screening. Due on O due Goal Shingrix. Due on due Goal Influenza vaccine. Due on No due Goal Depression scree sacha. Due on due Goal COVID19 VACC. Due on 2021 due Goal COVID19 VACC (Ad ult). Due on due Goal Alcohol Screening. Due on Oc due Goal Complete Physica l Exam. Due on due Goal TB Screening (PP D test). Due on due Goal PAP. Due on due Goal Colonoscopy. Due on due Goal Zoster vaccine ( 1st). Due on due Goal Pap/HPV testing. Due on due Goal Drug Screening. Due on due Goal FIT. Due on due Goal Tdap. Due on due Goal FOBT. Due on due Goal Mammogram Screening. Due on due Goal PPD (TST). Due on due Goal COVID19 VACC (Ad ult). Due on due Goal Shingrix. Due on due Goal Alcohol Screening. Due on due Goal Drug Screening. Due on due Goal COVID19 VACC. Due on 2021 due Goal FIT. Due on due Goal Depression scree sacha. Due on due Goal PAP. Due on due Goal TB Screening (PP D test). Due on due Goal Zoster vaccine ( ). Due on due Goal Influenza vaccine. Due on due Goal FOBT. Due on due Goal Colonoscopy. Due on due Goal Mammogram Screening. Due on due Goal Pap/HPV testing. Due on due Goal PPD (TST). Due on due Goal Tdap. Due on due Goal Complete Physica l Exam. Due on due Goal FOBT. Due on due Goal Colonoscopy. Due on due Goal Complete Physica l Exam. Due on due Goal PAP. Due on due Goal Mammogram (Scree sacha); Bilateral. Due on due Goal Zoster vaccine ( ). Due on due Goal Pap/HPV testing. Due on due Goal Influenza vaccine. Due on due Goal Diabetes screening. Due on due Goal FIT. Due on due Goal Mammogram Screening. Due on due Goal Depression scree sacha. Due on due Goal Hemocult X 3. Due on 2021 due Goal COVID19 VACC. Due on 2020 due Goal Tdap. Due on due Goal Alcohol Screening. Due on due Goal Drug Screening. Due on due Goal Lipid panel. Due on 022 due Goal COVID19 VACC. Due on 2020 due Goal Alcohol Screening. Due on due Goal Tdap. Due on due Goal Influenza vaccine. Due on due Goal Mammogram (Scree sacha); Bilateral. Due on due Goal Complete Physica l Exam. Due on due Goal Mammogram Screening. Due on due Goal Hemocult X 3. Due on 2021 due Goal PAP. Due on due Goal TB Screening (PP D test). Due on due Goal FOBT. Due on due Goal Pap/HPV testing. Due on due Goal Diabetes screening. Due on due Goal FIT. Due on due Goal Depression scree sacha. Due on due Goal Colonoscopy. Due on 027 due Goal Zoster vaccine ( 1st). Due on due Goal PPD (TST). Due on due Goal Drug Screening. Due on due Goal Lipid panel. Due on due Goal Lipid panel. Due on due Goal Zoster vaccine ( ). Due on due Goal Tdap. Due on due Goal Hemocult X 3. Due on 2021 due Goal Mammogram Screening. Due on due Goal TB Screening (PP D test). Due on due Goal Depression scree sacha. Due on due Goal FOBT. Due on due Goal Pap/HPV testing. Due on due Goal Influenza vaccine. Due on due Goal Complete Physica l Exam. Due on due Goal Diabetes screening. Due on due Goal FIT. Due on due Goal Mammogram (Scree sacha); Bilateral. Due on due Goal Colonoscopy. Due on due Goal PAP. Due on due Goal Mammogram Screening. Due on due Goal Tdap. Due on due Goal Colonoscopy. Due on due Goal Hemocult X 3. Due on 2020 due Goal FIT. Due on due Goal Mammogram (Scree sacha); Bilateral. Due on due Goal FOBT. Due on due Goal PAP. Due on due Goal Diabetes screening. Due on due Goal Depression scree sacha. Due on due Goal Pap/HPV testing. Due on due Goal Influenza vaccine. Due on due Goal Complete Physica l Exam. Due on due Goal Zoster vaccine ( ). Due on due Goal Lipid panel. Due on 022 due Goal Lipid panel. Due on 021 due Goal Zoster vaccine ( ). Due on due Goal FIT. Due on due Goal PAP. Due on due Goal Complete Physica l Exam. Due on due Goal PPD (TST). Due on due Goal TB Screening (PP D test). Due on due Goal Depression scree sacha. Due on due Goal Tdap. Due on due Goal Colonoscopy. Due on 027 due Goal FOBT. Due on due Goal Pap/HPV testing. Due on due Goal Influenza vaccine. Due on due Goal Mammogram (Scree sacha); Bilateral. Due on due Goal Hemocult X 3. Due on 2020 due Goal Mammogram Screening. Due on due Goal Influenza vaccine. Due on due Goal Colonoscopy. Due on due Goal Mammogram (Scree sacha); Bilateral. Due on due Goal FOBT. Due on due Goal Complete Physica l Exam. Due on due Goal Mammogram Screening. Due on due Goal Depression scree sacha. Due on due Goal Pap/HPV testing. Due on due Goal Hemocult X 3. Due on 2020 due Goal Tdap. Due on due Goal PPD (TST). Due on due Goal PAP. Due on due Goal TB Screening (PP D test). Due on due Goal Lipid panel. Due on due Goal Lifestyle education regardin g diet completed Goal Lipid panel. Due on due Goal TB Screening (PP D test). Due on due Goal PAP. Due on due Goal PPD (TST). Due on due Goal Tdap. Due on due Goal Diabetes screening. Due on due Goal Pap/HPV testing. Due on due Goal Depression scree sacha. Due on due Goal Hemocult X 3. Due on 2020 due Goal Mammogram Screening. Due on due Goal FOBT. Due on due Goal Complete Physica l Exam. Due on due Goal Colonoscopy. Due on due Goal Influenza vaccine. Due on due Goal Lipid panel. Due on 020 due Goal PAP. Due on due Goal TB Screening (PP D test). Due on due Goal PPD (TST). Due on due Goal Hemocult X 3. Due on 2020 due Goal Tdap. Due on due Goal Diabetes screening. Due on due Goal Pap/HPV testing. Due on due Goal Depression scree sacha. Due on due Goal Mammogram Screening. Due on due Goal FOBT. Due on due Goal Complete Physica l Exam. Due on due Goal Colonoscopy. Due on due Goal Influenza vaccine. Due on due Goal Lipid panel. Due on 021 due Goal TB Screening (PP D test). Due on due Goal PPD (TST). Due on due Goal PAP. Due on due Goal Diabetes screening. Due on due Goal Depression scree sacha. Due on due Goal Hemocult X 3. Due on 2020 due Goal Pap/HPV testing. Due on due Goal Tdap. Due on due Goal Mammogram Screening. Due on due Goal Complete Physica l Exam. Due on due Goal FOBT. Due on due Goal Colonoscopy. Due on due Goal Influenza vaccine. Due on due Goal Colonoscopy. Due on due Goal FOBT. Due on due Goal Mammogram Screening. Due on due Goal Complete Physica l Exam. Due on due Goal Diabetes screening. Due on due Goal Tdap. Due on due Goal Pap/HPV testing. Due on due Goal Hemocult X 3. Due on 2020 due Goal Depression scree sacha. Due on due Goal PAP. Due on due Goal PPD (TST). Due on due Goal TB Screening (PP D test). Due on due Goal Lipid panel. Due on 021 due Goal Prescribed diet education co mpleted Goal Diabetes screening. Due on due Goal FOBT. Due on due Goal Mammogram Screening. Due on due Goal Complete Physica l Exam. Due on due Goal Colonoscopy. Due on due Goal Influenza vaccine. Due on due Goal Lipid panel. Due on due Goal PAP. Due on due Goal PPD (TST). Due on 1 due Goal TB Screening (PP D test). Due on due Goal Pap/HPV testing. Due on due Goal Depression scree sacha. Due on due Goal Tdap. Due on due Goal Hemocult X 3. Due on 2018 due Goal Mammogram Screening. Due on due Goal Complete Physica l Exam. Due on due Goal FOBT. Due on due Goal Colonoscopy. Due on due Goal Influenza vaccine. Due on due Goal Depression scree sacha. Due on due Goal Diabetes screening. Due on due Goal Tdap. Due on due Goal Pap/HPV testing. Due on due Goal TB Screening (PP D test). Due on due Goal PAP. Due on due Goal PPD (TST). Due on 9 due Goal Lipid panel. Due on due Goal Influenza vaccine. Due on due Goal Colonoscopy. Due on due Goal FOBT. Due on due Goal Mammogram Screening. Due on due Goal Complete Physica l Exam. Due on due Goal Tdap. Due on due Goal Hemocult X 3. Due on 2018 due Goal Pap/HPV testing. Due on due Goal Depression scree sacha. Due on due Goal Diabetes screening. Due on due Goal PAP. Due on due Goal PPD (TST). Due on 9 due Goal TB Screening (PP D test). Due on due Goal Lipid panel. Due on due Goal Hemocult X 3. Due on 2018 due Goal Pap/HPV testing. Due on due Goal Depression scree sacha. Due on due Goal Tdap. Due on due Goal Diabetes screening. Due on due Goal FOBT. Due on due Goal Mammogram Screening. Due on due Goal Complete Physica l Exam. Due on due Goal Colonoscopy. Due on due Goal Influenza vaccine. Due on due Goal TB Screening (PP D test). Due on due Goal Lipid panel. Due on due Goal PPD (TST). Due on 9 due Goal PAP. Due on due Goal Influenza vaccine. Due on due Goal Colonoscopy. Due on due Goal Mammogram Screening. Due on due Goal FOBT. Due on due Goal Complete Physica l Exam. Due on due Goal Depression scree sacha. Due on due Goal Diabetes screening. Due on due Goal Tdap. Due on due Goal Pap/HPV testing. Due on due Goal Hemocult X 3. Due on 2018 due Goal PAP. Due on due Goal Lipid panel. Due on due Goal PPD (TST). Due on due Goal Lipid panel. Due on due Goal PAP. Due on due Goal Depression scree sacha. Due on due Goal Hemocult X 3. Due on 2018 due Goal Tdap. Due on due Goal Diabetes screening. Due on due Goal Pap/HPV testing. Due on due Goal Mammogram (Scree sacha); Bilateral. Due on due Goal FOBT. Due on due Goal Mammogram Screening. Due on due Goal Complete Physica l Exam. Due on due Goal Colonoscopy. Due on due Goal Influenza vaccine. Due on due Goal Lipid panel. Due on due Goal TB Screening (PP D test). Due on due Goal PPD (TST). Due on 9 due Goal Tdap. Due on due Goal Pap/HPV testing. Due on due Goal Hemocult X 3. Due on 2018 due Goal Depression scree sacha. Due on due Goal Diabetes screening. Due on due Goal Complete Physica l Exam. Due on due Goal Mammogram Screening. Due on due Goal FOBT. Due on due Goal Mammogram (Scree sacha); Bilateral. Due on due Goal Colonoscopy. Due on due Goal Influenza vaccine. Due on due Goal PAP. Due on due Goal Lifestyle education regardin g diet completed Goal PAP. Due on due Goal Influenza vaccine. Due on due Goal FOBT. Due on due Goal Mammogram Screening. Due on due Goal Mammogram (Scree sacha); Bilateral. Due on due Goal Colonoscopy. Due on due Goal Depression scree sacha. Due on due Goal Complete Physica l Exam. Due on due Goal Pap/HPV testing. Due on due Goal Diabetes screening. Due on due Goal Hemocult X 3. Due on 2018 due Goal TB Screening (PP D test). Due on due Goal Tdap. Due on due Goal PPD (TST). Due on 8 due Goal Lipid panel. Due on 019 due Goal Tdap. Due on due Goal TB Screening (PP D test). Due on due Goal PPD (TST). Due on 8 due Goal Depression scree sacha. Due on due Goal Complete Physica l Exam. Due on due Goal Pap/HPV testing. Due on due Goal Colonoscopy. Due on due Goal Mammogram (Scree sacha); Bilateral. Due on due Goal Mammogram Screening. Due on due Goal FOBT. Due on due Goal Influenza vaccine. Due on due Goal PAP. Due on due Goal PAP. Due on due Goal Influenza vaccine. Due on due Goal FOBT. Due on due Goal Mammogram Screening. Due on due Goal Colonoscopy. Due on 027 due Goal Mammogram (Scree sacha); Bilateral. Due on due Goal Depression scree sacha. Due on due Goal Complete Physica l Exam. Due on due Goal Pap/HPV testing. Due on due Goal Tdap. Due on due Goal TB Screening (PP D test). Due on due Goal PPD (TST). Due on 8 due Goal PAP. Due on due Goal Mammogram (Scree sacha); Bilateral. Due on due Goal Colonoscopy. Due on 027 due Goal Mammogram Screening. Due on due Goal Diabetes screening. Due on due Goal Complete Physica l Exam. Due on due Goal Lipid panel. Due on due Goal FOBT. Due on due Goal Hemocult X 3. Due on 2016 due Goal Colonoscopy. Due on due Goal Sigmoidoscopy. Due on due Goal Lipid panel. Due on due Goal Diabetes screening. Due on due Goal Mammogram. Due on 9 due Goal Mammogram Screening. Due on due Goal Mammogram (Scree sacha); Bilateral. Due on due Goal Mammogram Screening. Due on due Goal Mammogram. Due on 5 due Goal Complete Physica l Exam. Due on due Goal PAP. Due on due Goal TB Screening (PP D test). Due on due Goal Complete Physica l Exam. Due on due Goal Mammogram. Due on 5 due Goal PPD (TST). Due on 6 due Goal Mammogram Screening. Due on due Goal PAP. Due on due Goal Mammogram. Due on due Goal Mammogram Screening. Due on due Goal PAP. Due on due Goal Sigmoidoscopy. Due on due Goal Complete Physica l Exam. Due on due Goal Colonoscopy. Due on due Goal PPD (TST). Due on due Goal TB Screening (PP D test). Due on due Goal Mammogram. Due on due Goal PPD (TST). Due on due Goal TB Screening (PP D test). Due on due Goal Mammogram Screening. Due on due Goal Colonoscopy. Due on due Goal Complete Physica l Exam. Due on due Goal Sigmoidoscopy. Due on due Goal PAP. Due on due Goal Mammogram Screening. Due on due Goal Complete Physica l Exam. Due on due Goal Influenza vaccine. Due on due Goal PAP. Due on due Goal PAP. Due on due Goal Mammogram Screening. Due on due Goal Influenza vaccine. Due on due Goal Complete Physica l Exam. Due on due Goal Mammogram Screening. Due on due Goal PAP. Due on due Goal Influenza vaccine. Due on due Goal Mammogram Screening. Due on due Goal FOBT. Due on due Goal PAP. Due on due Goal Influenza vaccine. Due on due Goal Sigmoidoscopy. Due on due Goal Hemocult X 3. Due on 2014 due Goal Colonoscopy. Due on 015 due Goal Mammogram Screening. Due on due Goal PAP. Due on due Goal Sigmoidoscopy. Due on due Goal FOBT. Due on due Goal Colonoscopy. Due on 015 due Goal Hemocult X 3. Due on 2014 due Goal Influenza vaccine. Due on due Goal Sigmoidoscopy. Due on due Goal FOBT. Due on due Goal Depression scree sacha. Due on due Goal Colonoscopy. Due on 014 due Goal Influenza vaccine. Due on Oc due Goal PAP. Due on due Goal Tdap due Goal Hemocult X 3. Due on 2013 due Goal Mammogram Screening. Due on due Goal Hemocult X 3. Due on 2012 due Goal Influenza vaccine. Due on due Goal PAP. Due on due Referral Ordered: Mammogram, Diagnostic (related to Inconclusive mammogram) ordered Referral Ordered: Referrals: Mammogram, Diagnostic. Diagnostic testing ordered Referral Ordered: ULTRASOUND BREAST COMPLETE Right breast ordered Referral Ordered: Hematology (related to Eosinophilic leukocytosis) ordered Referral Ordered: Referrals: Hematology. Evaluate and treat Appointment date/timeframe: 1 Week ordered Referral Ordered: Screening mammo bilateral 2 view study of ordered Referral Ordered: Dentistry (related to Routine physical examination) ordered Referral Ordered: Referrals: Customer Support Technician. Consult Appointment date/timeframe: 06/26/2019 ordered Referral Ordered: Referrals: Dentistry. Consult ordered Referral Ordered: referred to Neurosurgeon for consultation Appointment date/timeframe: 02/14/2019 ordered Referral Ordered: Referrals: Customer Support Technician Marie. Evaluate and treat Appointment date/timeframe: 09/16/2018 ordered Referral Ordered: Referrals: Gastroenterology ordered Referral Ordered: CHEST X-RAY FRONT 2 VIEWS ordered Referral Ordered: X-RAY EXAM OF RIBS/CHEST ordered Referral Ordered: MAMMOGRAM, SCREENING ordered Patient Education Enfermedades d e las enc a s: MedlinePlus en espa o l completed Patient Education Periodontitis: MedlinePlus enciclopedia m d ica completed Patient Education Examen dental: Tajba de laboratorio de MedlinePlus completed Future Order: Lab Order LIPID PA LALITO ([id number]), Sent on: Sent Future Order: Lab Order LIVER PA LALITO ([id number]), Sent on: Sent Future Order: Lab Order BASIC ME TABOLIC PANEL ([id number]), Sent on: Sent Future Order: Lab Order HEMOGLOB IN A1C ([id number]), Sent on: Sent Future Order: Lab Order LIPID PA LALITO ([id number]), Sent on: Sent Future Order: Lab Order TSH 3RD GENERATION ([id number]), Sent on: Sent Future Order: Lab Order URINALYS IS COMPLETE ([id number]), Sent on: Sent History Of Present Illness Encounter Date Complaint History Of Prese nt Illness Lab results Telephone consul kady Pt has consented to a consult via telephone, this consultation takes the place of a face to face encounter. Telephone consultation is due to current clinic guidelines related to COVID-19. Consultation is medically necessitated due to their age and chronic conditions. No solutions architect needed I speak [place]. Present in telephone call the patient and I. Pt is requesting medication refill, review meds and dosing with patient. Answer all questions and concern regarding their medication. Pt is also requesting lab results, discuss results with patient. Pt was told that their chronic conditions can cause them a huge risk for complications to covid-19 pt has agreed to take current meds as directed. Pt denies any sob/weakness/ headaches/ visual disturbance/palpitations. Conversation time: 15 minutes. lab results Telephone consul kady Pt has consented to a consult via telephone, this consultation takes the place of a face to face encounter. Telephone consultation is due to current clinic guidelines related to COVID-19. Consultation is medically necessitated due to their age and chronic conditions. No solutions architect needed I speak [place]. Present in telephone call the patient and I. Pt is requesting medication refill, review meds and dosing with patient. Answer all questions and concern regarding their medication. Pt is also requesting lab results, discuss results with patient. Pt has completed mammogram screening and due for results. Pt was told that their chronic conditions can cause them a huge risk for complications to covid-19 pt has agreed to take current meds as directed. Pt denies any sob/weakness/ headaches/ visual disturbance/palpitations. Conversation time: 15 minutes. BLOOD DRAW cpe PMH- chronic ill ness: hyperlipidemia, acute illness or ER visit: none, not taking prescription medications Fhx- both parents are living, maternal uncle with cancer of unk typeSurgeries- Social Hx- no drinking, no smoking or drug useImmunizations-last pap smear exam completed in 2019, previous normal resultlast mammogram screening completed in 2019, previous normal resultConcerns-none Aug-17-2021 Telehealth Consultation Patient has consented to a consult via telehealth, which takes the place of a face to face encounter. Telehealth consultation is due to current clinic guidelines related to COVID-19. Consultation is medically necessary. Odd Bundle Worker needed: Yes tissue inserter usedPresent in the visit: The patient and IConversation time: 20 minutes lab results pt is requesting lab results. she is doing wellneg diarrhea/cramping/rash/pruritus lab draw mammo results spoke to pt kassi [facility]. no other family member present during the calltelephone call replaces face to face encountermedically necessary to address above concernstelephone visit is due to current COVID 19 pandemic.[id number] tissue inserter usedshe is requesting mammo results. denies any new complaintsmammo negative lab results [facility] no other family member present during the calltelephone call replaces face to face encountermedically necessary to address above concernstelephone visit is due to current COVID 19 pandemic.[place] speaking and consented to interpretershe is requesting labs resultsdoing welldenies any seasonal allergy symptoms. neg chronic diarrhea/rash/urticariashe saw Hemat and had labs done. was told everything was normalreport pending preventive exam The patient stat es she uses abstinence for control. Her menses is absent. Negative for: breast discharge, breast lump(s) and breast pain. Positive for: breast self exam.Postmenopausal. Menopausal symptoms negative for: hot flashes, insomnia, night sweats and vaginal dryness. There are no associated symptoms. Pertinent negatives include abnormal bleeding (hematology), abnormal vaginal bleeding, anxiety, decreased libido, depression, difficulty falling sleep, dyspareunia, history of infertility, nocturia, sexual dysfunction, sleep disturbances, urinary incontinence, urinary urgency, vaginal discharge and vaginal itching. Diet no diet. She does not take calcium. She does not take Vitamin D. She does take multivitamins. She does not take Folic acid.The patient states her exercise level is none. The patient does not use tobacco. She has not been exposed to passive smoke. She does not drink alcohol. lab results [id number] y/o F span kishan speaking consented to telephone callspoke to pt directlypt consented to GIFTY Brown as ku[place] interpreterstates she is doing well+ seasonal allergies and dust allergies with itchy throat/cough/sneezing Pelvic exam./ stool drop off. 59 y/o F here for PAP smearlast pap 3 years backcurrently not sexually activenon smokerdenies multiple partners follow up 59 y/o F here fo r follow up. pt states she is doing welldenies any complaintslast seen 1 month back for lab resultsnot sure why she is here todaydenies sneezing/itchy eyes/nasal congestion/asthma Lab results. 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 Admits she doesn't exercise, has been trying to eat better. Denies any problems today. f/u on lab results LAB ONLY preventive exam The patient stat es she uses abstinence for control. Negative for dysmenorrhea and menorrhagia.Postmenopausal. Menopausal symptoms negative for: night sweats. Pertinent negatives include anxiety, depression and vaginal discharge. Diet no diet.The patient states her exercise level is none. The patient does not use tobacco. She has not been exposed to passive smoke. She does not drink alcohol. Additional information: Last Pap smear- 09/18/16 NILMNegative mammogram 06/03/2018Urine dip today shows trace protein and moderate blood. Pt is asymptomatic. Lab results 57 y/o here for lab results, she denies diarrhea, or abdominal pain or bloating, she has no idea why the test were ordered to begin with. She usually sees Dr. Munoz, and apparently she saw another doctor or locum. patient is asymptomatic. follow up paper chart 56 y/o female is c/o of upper abdominal pain X 2days patient states pain is on and off, feels pain when eating spicy foods.Patient comes to the clinic for lab results these were discussed with herTwo days ago she started with epigastric pain after she ate spicy food, she took tylenol and the pain went away. The following day she ate spicy food again and the pain presented, and subsided with tylenol. No nausea, vomit, weight loss, or abdominal distention f/u on pap results 56 y/o F here for PAP results. had mammo done.pt had colonoscopy done today and has f/u appt on 11/20/16 at 1 pm. CPE with Pap here for cpe.no h/o abnormal pap in the pasthad mammo doneawaiting appt with GI for fobt + f/u on lab results 55 y/o F here for follow up of loabs. pt brought stool cards x3 which are positive.pt deneis conner or hematocheziapt has appt for mammo on 09/04/15 f/u 55 y/o F here fo r follow up.PMH> nonePSH: c sectionx1, Meds noneSH; non smoker Follow up on lab test(s) lab res ults discussed w/ pt. FLP improvedcont with diet and exercise. last MMGM 08/2014 wnlstool ob done 12/2014 and neg x 3no other complaints. follow up on labs STOOL CARDS X3 NEGATIVE Pt here for lab results and med refills. Review meds and discuss results with patient. Pt reports doing well has no complaints at this time. Pt denies any cp/sob/weakenss/ headaches/ visual disturbance/palpitations. Pt is due for pending quirino results. pap smear 07/2013 last yinka mogramdue: stool cards, tdaplast chest x-ray for positive ppd 08/01 s/p INH therpay for 6 [id number] y/o F here for follow up. doing well. last PAP in 04/01 neg Functional Status Date Functional Assessmen t Pain Score 0/10 Instructions Date Instruction Additional Infor ivett diet and life style modifications discussed. Related to Hyperlipidemia, unspecified Increase activity 45 min of cardio exercises Related to Hyperlipidemia, unspecified Follow a low fat t and increase fluid intake Related to Hyperlipidemia, unspecified diet and life style modifications discussed. Related to Hyperlipidemia, unspecified Increase activity 45 min of cardio exercises Related to Hyperlipidemia, unspecified Follow a low fat t and increase fluid intake Related to Hyperlipidemia, unspecified Follow a low fat t and increase fluid intake Related to Hyperlipidemia, unspecified control of weight. w eight reduction by diet and exercise advised if overwei Related to Prediabetes ADA diet encouraged with high fiber/clear water hydration Related to Prediabetes diet and life style modifications discussed. Related to Hyperlipidemia, unspecified Increase activity 45 min of cardio exercises Related to Hyperlipidemia, unspecified Advised pt to follow a low fat and low cholesterol dietIncrease fiber intake in dietExercise daily 30-40 mins or as tolerated Advise weight loss. Related to Hyperlipidemia, unspecified Advised pt to follow a low fat and low cholesterol dietIncrease fiber intake in dietExercise daily 30-40 mins or as tolerated Advise weight loss. Related to Hyperlipidemia, unspecified Advised pt on common local reactions associated with vaccineHand out given for severe reactionsTake OTC tylenol/Ibuprofen for mild discomfort or soreness in the arm Related to Encounter for immunization Advised pt to follow a low fat and low cholesterol dietIncrease fiber intake in dietExercise daily 30-40 mins or as tolerated Advise weight loss Related to Hyperlipidemia, unspecified Giving encouragement to exercise Related to Body mass index (BMI) 23.0-23.9, adult Lifestyle education regarding di et Related to Body mass index (BMI) 23.0-23.9, adult Prescribed activity/ exercise education Related to Body mass index (BMI) 25.0-25.9, adult Prescribed diet education Relate d to Body mass index (BMI) 25.0-25.9, adult refer to heme for recommendation s 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. Pt was explained the risks of not performing mammogram including missing dx of breast cancer - pt still declines. 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 Related to Hyperlipidemia, unspecified Avoid carbs and fatty foods Rela radha to Hyperlipidemia, unspecified daily exercise Related to Hyper lipidemia, unspecified Prescribed activity/ exercise education Related to Body mass index (BMI) 23.0-23.9, adult Lifestyle education regarding di et Related to Body mass index (BMI) 23.0-23.9, adult Drink plenty of fluids Related t o Positive occult stool blood test Take OTC fiber supplements Relat ed to Positive occult stool blood test Eat vegetables and fruits daily Related to Positive occult stool blood test Take calcium supplements Related to Annual physical exam Counselled on health y diet and excercise Related to Annual physical exam Follow low fat and low carb diet Related to Other hyperlipidemia daily excercise incl udine walks for 30 mins every day Related to Other hyperlipidemia take OTC omega 3 fat ty acids and fiber supplements Related to Other hyperlipidemia low fat low carb t and exercise and weight loss Related to Hyperlipidemia Dyslipidemia PLEASE GIVE CHOLESTROL DIET HAND OUT Related to Hyperlipidemia Dyslipidemia Activity counseling provided Rel ated to Follow-Up Lab Result Dietary counseling provided Rela radha to Follow-Up Lab Result avoid fats, low chol esterol diet staff counsel Related to Hyperlipidemia Dyslipidemia exercise 5 times a w [place] for 45 mins to 1 hr Related to Hyperlipidemia Dyslipidemia exercise 5x/wk, and diet, avoids carbohydrates Related to Prediabetes ADA diet education Related to Pr ediabetes decrease caloric int erik, daily exercise Related to Prediabetes copy of CXR to client Assessments Type Assessment Date assessment Chronic periodontitis, generaliz ed, moderate Patient Care Teams Name Effective Dates (start - stop) Status Members No Information
--- OUTSIDE RECORDS SUMMARY | 2025-02-11 03:30 | XMS_ITS ---
Author Organization [facility] Address [address] [place] [address] Care Team Providers Care Platen Press Feeder Name Role Phone Jolene Stein Primary Care Provider UnavailChris Coello [phone] REASON FOR VISIT screening,hx polyps,fam hx colon ca Encounters Encounter Location Date Provider Diagnosis [facility] Outpatient [address] [place] [phone] 02/11/2025 Chris Leblanc Plan Of Treatment Next Appt Details Provider Name:Chris Leblanc , 05/18/2025 09:30:00 AM, [address] [place] [address], [phone], Progress Notes * BETH ELIASDOB:01/1961 (64 yo F)Acc No.[id number]:02/11/2025 COLON WITH MAC Patient: Toby BETH TOVAR Provider: Toby Leblanc MD :1960 A ge:64 Y S ex:Female Date:02/11/2025 Address:[address] [place] [address] Pcp:Jolene Richter Subjective: * Chief Complaints: * [...] 02/11/2025 Generated for Dionna guerrier/Theresa/Becky on: 0 05/04/2025 08:57 PM EDT
--- OUTSIDE RECORDS SUMMARY | 2025-05-04 20:57 | XMS_ITS | Patient Health Record ---
Author Organization [facility] Address [address] [place] [address] Care Team Providers Care Telecommunications Sales Representative Name Role Phone Jolene Stein Primary Care Provider Chris Lopez Unavailable [phone] Allergies Allergen (clinical drug ingredient) Drug/Non Drug [...] Problem Status W/U Status Risk Notes Problem 116460767 Encounter for screening for malignant neoplasm of colon (Z12.11) Active confirmed Problem Preprocedural examination (603348216068888) Preprocedural examination (Z01.818) Active confirmed Problem 909913672 Family history o f colon cancer (Z80.0) Active confirmed Problem 178132237 Abdominal pain, RUQ (R10.11) Active confirmed Problem 047931240 Hx of adenomatou s colonic polyps (Z86.010) Active confirmed Problem 980843136 Abdominal pain, right upper quadrant (R10.11) Active confirmed Vital Signs Blood pressure diastolic 11 mm Hg 11/04/2024 Height 62 in 11/04/2024 Blood pressure systolic 111 mm Hg 11/04/2024 Weight 188 lbs 11/04/2024 BMI 34.38 kg/m2 11/04/2024 Procedures Procedure Date Ordered Date Performed Result Body Sit e COLONOSCOPY 11/04/2024 N/A Encounters Encounter Location Date Provider Diagnosis [facility] [address] [place] [phone] 11/04/2024 Chris Leblanc Hx of adenomatous colonic polyps Z86.010 ; Preprocedural examination Z01.818 ; Encounter for screening for malignant neoplasm of colon Z12.11 and Family history of colon cancer Z80.0 [facility] [address] [place] [phone] 11/04/2024 Chris Leblanc [facility] [address] [place] [phone] 02/10/2025 Chris Leblanc [facility] [address] [place] [phone] 02/16/2025 Chris Leblanc Assessments Encounter Date Diagnosis [...] Provider Name:Chris Leblanc , 05/18/2025 09:30:00 AM, [address] [place] [address] , [place], [place], [id number], Insurance Providers Payer Name Payer Address Payer Phone Subscriber Number Group Number Insured Name Patient Relationship to Insured Coverage Start Date Coverage End Date [facility] [address] [place] [address] [id number] BETH ELIAS Self - patient is the insured MEDICAID OF [facility] [address] [place] [address] [id number] CURT BETH Self - patient is the insured Medical (General) History Medical History History ICD Code Screening colonoscopy 05-11-2008--1 small tubular adenoma removed NIDDM Hypertension Denies history of [place], stroke, kidney dis ease Asthma--seasonal Fibromyalgia Osteoarthritis Negative colonoscopy in 10/09 14 except for diverticulosis and internal hemorrhoids Hyperlipidemia History of sleep apnea Neg. abdominal U/S in 09/2018 Negative screening colonoscopy in 2018 Surgical History Surgery Date(Month/Year) Foot surgery Tubal ligation
--- OUTSIDE RECORDS SUMMARY | 2025-05-04 20:58 | XMS_ITS | Clinical Summary ---
Author Organization [employer] Address [address] [facility] 7[address] [place] [address] Care Team Providers Care Career Coach Name Role Phone Unavailable Primary Care Provider [...] of 2) 2010 COVID-19 Vaccine ( season) 2025 12/25/2022, 12/06/2021, 07/06/2021, Additional history exists Influenza [...] age to complete this topic Insurance [facility] OPTIONS (O D-SNP) CAMILO RIVAS [id number]
--- NOTE | 2025-05-13 15:02 | HO.ANESPROP2 ---
Documented by User: Essie Terrazas NP 05/13/25 15:02 HPI - Anesthesia Eval Consult details Narrative: 64 yr old female for colonoscopy Type 2 DM: A1C 8.4% Anesthesia Pre-Procedure Meds Is the patient on any of the following meds?: GLP1/DPP4 (has not yet started GLP-1) and SGLT2 Inhib PMFSH Active Problems Active Problems: All Active Problems Essential hypertension (Acute) Hyperlipidemia LDL goal <70 (Acute) Asthma (Acute) Physical exam (Acute) Anemia (Acute) Diabetes mellitus (Acute) COVID-19 (Acute) Obesity due to excess calories (Acute) Obesity (Acute) Obesity (BMI 30-39.9) (Acute) Vitamin D deficiency (Acute) Dyslipidemia (Acute) Hypertension (Acute) CKD (chronic kidney disease) stage 3, GFR 30-59 ml/min (Acute) Diabetic nephropathy associated with type 2 diabetes mellitus (Acute) Diabetes type 2, controlled (Acute) Past Medical History Medical History Hx of sleep apnea Fibromyalgia Obesity due to excess calories Hyperlipidemia associated with type 2 diabetes mellitus Vitamin D deficiency Dyslipidemia Hypertension CKD (chronic kidney disease) stage 3, GFR 30-59 ml/min Diabetic nephropathy associated with type 2 diabetes mellitus Diabetes type 2, controlled Family History Family History Father No problems noted. Mother Cancer Surgical History Surgical History Hx of foot surgery Hx of colonoscopy (2019) Hx of tubal ligation Social History Social History Housing: Apartment Alcohol intake: current Alcohol intake frequency: holidays/special occasions only Patient Tobacco Use Status: Never used Tobacco e-Cigarette/Vaping Use: Never Used Second Hand Smoke Exposure: No Use of substances other than those prescribed or required for medical reasons: No Have you been hit, kicked, punched, or otherwise hurt by someone within the past year? If so, by whom?: No Advance Directives: No Advance Directives Information Provided: Yes Advance Directives on File: No Poor oral hygiene: No service: No Current occupational status: disabled Cognitive needs: No Hearing needs: No Vision needs: No Meds Allergies Allergy/AdvReac Type Severity Reaction Status Date / Time Penicillins Allergy Weakness Verified 05/18/25 08:19 Documented by User: Peri Reeves MD 05/18/25 09:48 PMFSH Past Medical History Medical History Hx of sleep apnea Fibromyalgia Obesity due to excess calories Hyperlipidemia associated with type 2 diabetes mellitus Vitamin D deficiency Dyslipidemia Hypertension CKD (chronic kidney disease) stage 3, GFR 30-59 ml/min Diabetic nephropathy associated with type 2 diabetes mellitus Diabetes type 2, controlled Family History Family History Father No problems noted. Mother Cancer Surgical History Surgical History Hx of foot surgery Hx of colonoscopy (2019) Hx of tubal ligation History of Problems with Anesthesia: No Social History Social History Housing: Apartment Alcohol intake: current Alcohol intake frequency: holidays/special occasions only Patient Tobacco Use Status: Never used Tobacco e-Cigarette/Vaping Use: Never Used Second Hand Smoke Exposure: No Use of substances other than those prescribed or required for medical reasons: No Have you been hit, kicked, punched, or otherwise hurt by someone within the past year? If so, by whom?: No Advance Directives: No Advance Directives Information Provided: Yes Advance Directives on File: No Poor oral hygiene: No service: No Current occupational status: disabled Cognitive needs: No Hearing needs: No Vision needs: No Meds Allergies Allergy/AdvReac Type Severity Reaction Status Date / Time Penicillins Allergy Weakness Verified 05/18/25 08:19 Exam Airway Mallampati Class: II TM Dist: >3cm Neck ROM: Full Loose/Missing/Broken Teeth: No Heart: RRR Lungs: CTA Assessment and Plan Assessment Anesthesia Assessment: Anesthesia Plan Discussed and Chart Reviewed Final Anesthetic Review History of Problems with Anesthesia: No NPO: Yes ASA Class: III Final Preanesthetic Review: Meds/Allgs Chart Reviewed, Consent Obtained/Reviewed and Anes Risks/Benef Reviewed Patient Risk: Intermediate Procedure Risk: Low Anesthetic Plan Anesthetic Plan: MAC: Disposition: Standard PACU
[2025-05-14 16:18] VITALS: BMI 34.4
[2025-05-18 08:26] VITALS: BP 132/71; PULSE 90; RESP 15; TEMP 36.6; O2SAT 96
[2025-05-18] MEDS: Lactated Ringers 1,000 ML 100 ML IVCONT (08:46)
[2025-05-18 08:52] LABS: Glucose, Whole Blood 172 mg/dL (60-115)
[2025-05-18 10:25] VITALS: BP 90/49; PULSE 77; RESP 18; TEMP 36.3; O2SAT 99
--- NOTE | 2025-05-18 10:28 | PM.OP ---
Brief Operative Note Date of Service: 05/18/25 Pre-op diagnosis: Screening Post-op diagnosis: other (Polyp) Procedure: Colonoscopy to the cecum and TI with bx/removal of polyp Surgeon: Chris Leblanc MD Anesthesia: MAC Was an Assembler Insulator used for this Procedure?: No Estimated blood loss (mL): 2.0 Pathology: other (A. Cecal polyp) Condition: stable Disposition: PACU
[2025-05-18 10:40] VITALS: BP 102/60; PULSE 79; RESP 16; TEMP 36.2; O2SAT 100
--- NOTE | 2025-05-18 12:27 | OP_ITS ---
DATE OF SERVICE: 05/18/2025 SURGEON: Chris Leblanc MD INDICATIONS: The patient presents for evaluation of colorectal cancer screening, personal history of colon polyps, and family history of colon cancer. PREOPERATIVE DIAGNOSIS: POSTOPERATIVE DIAGNOSIS: PROCEDURE PERFORMED: Colonoscopy to the cecum and terminal ileum with biopsy and removal of polyp. ESTIMATED BLOOD LOSS: COMPLICATIONS: ANESTHESIA: Monitored anesthesia care. ASSISTANTS: SPECIMENS: POSTOPERATIVE DIAGNOSES: The patient presents for evaluation of colorectal cancer screening, personal history of colon polyps, and family history of colon cancer, small colon polyp, diverticulosis, and internal hemorrhoids. DESCRIPTION OF PROCEDURE: The patient was placed in the left lateral decubitus position. The digital rectal exam revealed no abnormalities. The Olympus video pediatric colonoscope was inserted into the rectum and advanced easily to the cecum. Once in the cecum, I did identify cecal pouch with appendiceal orifice and a normal-appearing ileocecal valve. The terminal ileum was cannulated and appeared normal. The scope was withdrawn back into the colon. The entire cecum was well visualized. In the cecum, near the appendiceal orifice, there was a flat, approximately 3 or 4 mm polyp, which was biopsied and completely removed with cold biopsy forceps. The remainder of the cecum appeared normal. Scope was slowly withdrawn assessing all mucosal surfaces carefully. Preparation was excellent. I did not visualize any other polyps, colitis, nor angiodysplasia. There was a mild amount of sigmoid diverticulosis. In the rectum, scope was retroflexed visualizing internal hemorrhoids, but no other pathology. The rectal mucosa appeared normal. The scope was straightened and withdrawn from the patient. She tolerated the procedure well and was returned to recovery area in stable condition. IMPRESSION: 1. Colon polyp. 2. Diverticulosis. 3. Internal hemorrhoids. PLAN: The results of biopsy will be checked. I would recommend a repeat colonoscopy in 5 years for further screening given her previous history of tubular adenomas and family history of colon cancer in her mother. She will otherwise see me as needed. MD SKY Chambers/ALLY / [phone]
== END 2025-05-18 11:31 | disposition home or self-care (01) ==
PROVIDERS: PCP Internal Medicine; Visit Provider Internal Medicine
PROC: 0DJD8ZZ Inspection of Lower Intestinal Tract, Via Natural or Artificial Opening Endoscopic (ICD-10-PCS; CPT 45378; principal; 2025-05-18 09:30)
DX: Z12.11 Encounter for screening for malignant neoplasm of colon (principal); Z86.0101 Personal history of adenomatous and serrated colon polyps; Z80.0 Family history of malignant neoplasm of digestive organs; K51.40 Inflammatory polyps of colon without complications; K57.30 Diverticulosis of large intestine without perforation or abscess without bleeding; K64.8 Other hemorrhoids; M79.7 Fibromyalgia; J45.909 Unspecified asthma, uncomplicated; I10 Essential (primary) hypertension; E78.5 Hyperlipidemia, unspecified; E11.9 Type 2 diabetes mellitus without complications; Z98.890 Other specified postprocedural states
CPT/HCPCS: 45380; 82947; 88305; J2003; J2704

== ENCOUNTER 2025-08-04 10:28 | Outpatient (REF) | payer OTHER, SELFPAY ==
--- OUTSIDE RECORDS SUMMARY | 2025-05-18 04:30 | XMS_ITS ---
Author Organization [facility] Address [address] [place] [address] Care Team Providers Care Applications Engineer Manufacturing Name Role Phone Jolene Stein Primary Care Provider UnavailChris Coello [phone] REASON FOR VISIT screening colon Encounters Encounter Location Date Provider Diagnosis [facility] [place] Outpatient [address] [place], [place] [phone] 05/18/2025 Chris Leblanc Plan Of Treatment No Information Progress Notes * BETH ELIASDOB:01/1961 (64 yo F)Acc No.[id number]:05/18/2025 COLON WITH MAC Patient: Toby TOVAR BETH Provider: Toby Leblanc MD :1960 A ge:64 Y S ex:Female Date:05/18/2025 Address:[address] [place], [place] [phone] Pcp:Jolene Richter Subjective: * Chief Complaints: * S creening colon Billing Information: * Procedure Codes: * The named appointment provid er may or may not be the originator of this progress note, and it is not deemed complete until electronically signed by the appointment provider. Sign off status: Pending * Provider: Toby Leblanc MD Date: 0 05/18/2025 Generated for Dionna guerrier/Theresa/eTransmitting on: 1 10/05/2024 01:10 PM EST
--- NOTE | ~2025-08-04 | MM_ITS ---
EXAMINATION: DXA BONE DENSITY AXIAL HISTORY: Z78.0 - Asymptomatic menopausal state TECHNIQUE: Alumnize Dual energy absorptiometry (DEXA) of the lumbar spine, total left hip, and femoral neck was performed. COMPARISON: Comparison is made with the prior examination dated 09/16/2009. FINDINGS: The bone mineral density of the lumbar spine is 1.164 g/cm2, corresponding to a T-score of -0.1, and a Z-score of 0.8. This is indicative of normal bone mineral density. This represents a BMD change of -3.7% compared to the prior exam. This is statistically significant. The bone mineral density of the left total hip is 0.892 g/cm2, corresponding to a T-score of -0.9, and a Z-score of -0.2. This is indicative of normal bone mineral density. This represents a BMD change of -17.9% compared to the prior exam. This is statistically significant. The bone mineral density of the left femoral neck is 0.900 g/cm2, corresponding to a T-score of -1.0, and a Z-score of 0.. This is indicative of normal bone mineral density. This represents a BMD change of -13.6% compared to the prior exam. FRACTURE RISK: The FRAX index suggests a ten year probability of major osteoporotic fracture of 4.2%, and of hip fracture 0.3%. MM/XR DEXA axial skeleton IMPRESSION: Based on bone mineral density, and according to World Health Organization (WHO) criteria, the diagnosis is consistent with normal bone mineral density. Statistically, 68% of repeat scans fall within 1 SD (+/- 0.010 g/cm2 for AP spine L1-L4) and 1 SD (+/- 0.012 g/cm2 for femur total) FRAX is a trademark of the [employer]'s [place] [employer], a World Health Organization (WHO) Collaborating Center. Electronically signed by: Chris Landa MD 08/04/2025 11:42 AM [facility]
--- OUTSIDE RECORDS SUMMARY | 2025-08-04 13:11 | XMS_ITS | Clinical Summary ---
Author Organization [facility] [employer] [facility] Address [address] [place] [address] Care Team Providers Care Rubber Tire And Tubes Supervisor Name Role Phone Unavailable Primary Care Provider [...] patient's age to complete this topic Insurance [facility] DET[employer] OPT[employer] (O D-SNP) [place]ILO RIVAS [id number]
--- OUTSIDE RECORDS SUMMARY | 2025-08-04 13:11 | XMS_ITS | Patient Health Record ---
Author Organization [facility] Address [address] [place] [address] Care Team Providers Care Packaging Machine Operator Name Role Phone Jolene Stein Primary Care Provider Chris Lopez Unavailable [phone] Allergies Allergen (clinical drug ingredient) Drug/Non Drug Allergy documented on EMR Reaction Allergy Type Onset Date Status penicillin G Penicillin G Sodium Unknown Drug Allergy Active Results Component Value Reference Range Flag Notes Pathology (Not yet reviewed by provider) Interpretation: Performing Lab:[facility], [address] [place] [phone] Notes/Report: Glucose, Whole Blood Reviewed date:05/23/2025 11:20:05 PM Interpretation: Performing Lab:[facility], [address] [place] [phone] Notes/Report: Glucose, Whole Blood 172 60-115 mg/dL H KS TER #: [id number] Reason For Referral No Information Medications Medication SIG (Take, Route, Frequency, Duration) Notes Start Date End Date Status Dulcolax (colon prep) 5 MG Tablet Delayed Release take at 3:00 p.m and 7:00p.m. Orally two tablets twice a day for one day; Duration: 1 days 12/14/2024 Active Albuterol Not-Taking /P RN Pravastatin Sodium 40 MG Tablet 1 tablet Orally Once a day Active Pioglitazone HCl 45 MG Tablet 1 tablet Orally Once a day Active MiraLax (colon prep) 17 GM/SCOOP Powder 1 238 Gm bottle mixed with Gatorade or Crystal Light orally begin at 5:00 p.m. the day before the procedure; Duration: 1 days 12/14/2024 Active Claritin 10mg Tablet 1 tablet Orally Once a day Active Lisinopril 10 MG Tablet 1 tablet Orally Once a day Active Vitamin D3 Active Xigduo XR Combination of metformin and Farxiga Active Immunizations Vaccine Route Administration Date Status Comme nts Flu vaccine no Preserv 3 and > Unknown 04/20/2015 Admin istered Influenza Unknown 05/30/2018 Administered Social History Social History Additional Details Category Social Info Options Details Miscellaneous: Marital status: single Occupation: disabled Section Notes: She does not smoke nor use a ny significant amounts of alcohol She does not smoke nor use a ny significant amounts of alcohol She does not smoke nor use a ny significant amounts of alcohol She does not smoke nor use a ny significant amounts of alcohol She does not smoke nor use a ny significant amounts of alcohol Problems Problem Type SNOMED Code ICD Code Onset Dates Problem Status W/U Status Risk Notes Problem Screening for malignant neoplasm of colon (430367419) Encounter for screening for malignant neoplasm of colon (Z12.11) Active confirmed Problem Preprocedural examination (271631406451465) Preprocedural examination (Z01.818) Active confirmed Problem Family History of Cancer of Colon (Situation) (482541567) Family history of colon cancer (Z80.0) Active confirmed Problem Right upper quadrant pain (864188737) Abdominal pain, RUQ (R10.11) Active confirmed Problem History of adenomatous polyp of colon (210474097) Hx of adenomatous colonic polyps (Z86.010) Active confirmed Problem Right upper quadrant pain (059983505) Abdominal pain, right upper quadrant (R10.11) Active confirmed Vital Signs Blood pressure diastolic 11 mm Hg 11/04/2024 Height 62 in 11/04/2024 Blood pressure systolic 111 mm Hg 11/04/2024 Weight 188 lbs 11/04/2024 BMI 34.38 kg/m2 11/04/2024 Procedures Procedure Date Ordered Date Performed Result Body Sit e COLONOSCOPY 11/04/2024 N/A Encounters Encounter Location Date Provider Diagnosis [facility] [place] [place] Outpatient [address], [place] [phone] 05/18/2025 Chris Leblanc [facility] [address] [place] [address] 11/04/2024 Chris Leblanc Hx of adenomatous colonic polyps Z86.010 ; Preprocedural examination Z01.818 ; Encounter for screening for malignant neoplasm of colon Z12.11 and Family history of colon cancer Z80.0 [facility] [address] [place] [address] 11/04/2024 Chris Leblanc [facility] [address] [place] [address] 02/10/2025 Chris Leblanc [facility] [address] [place] [address] 02/16/2025 Chris Leblanc [facility] [address] [place] [address] 05/18/2025 Chris Leblanc Assessments Encounter Date Diagnosis (ICD [...] Test Test Name Order Date COLONOSCOPY 11/04/2024 Pathology 05/18/2025 Future Test Test Name Order Date COLONOSCOPY 08/19/2013 COLONOSCOPY 01/10/2019 Insurance Providers Payer Name Payer Address Payer Phone Subscriber Number Group Number Insured Name Patient Relationship to Insured Coverage Start Date Coverage End Date [facility] [address] Attn Claims CAMILO Jewell [id number] BETH ELIAS Self - patient is the insured MEDICAID OF [facility] [address] [place] [phone] [id number] CURT BETH Self - patient is the insured Medical (General) History Medical History History ICD Code Screening colonoscopy 05-11-2008--1 small tubular adenoma removed NIDDM Hypertension Denies history of VT, stroke, kidney dis ease Asthma--seasonal Fibromyalgia Osteoarthritis Negative colonoscopy in 10/09 14 except for diverticulosis and internal hemorrhoids Hyperlipidemia History of sleep apnea Neg. abdominal U/S in 09/2018 Negative screening colonoscopy in 2018 Surgical History Surgery Date(Month/Year) Tubal ligation Foot surgery
== END 2025-08-04 10:29 ==
LOC: HO.MAMMO 10:28
PROVIDERS: PCP Internal Medicine; Visit Provider Internal Medicine
DX: Z12.31 Encounter for screening mammogram for malignant neoplasm of breast (principal); Z78.0 Asymptomatic menopausal state
CPT/HCPCS: 77063; 77067; 77080

== ENCOUNTER → 2025-08-04 11:00 | Outpatient (BNV) | payer OTHER, SELFPAY | PROVIDERS: PCP Internal Medicine; Visit Provider Radiology Diagnostic Radiology | DX: E28.39 Other primary ovarian failure (principal) | CPT/HCPCS: 77080 ==

== ENCOUNTER 2025-08-06 13:16 | Outpatient (AMB) | payer OTHER, SELFPAY ==
--- OUTSIDE RECORDS SUMMARY | 2025-05-18 04:30 | XMS_ITS ---
Author Organization [facility] Address [address] [place] [address] Care Team Providers Care Outfitter Cabin Name Role Phone Jolene Stein Primary Care Provider UnavailChris Coello [phone] REASON FOR VISIT screening colon Encounters Encounter Location Date Provider Diagnosis [facility] [address] [place], [place] [phone] 05/18/2025 Chris Leblanc Plan Of Treatment No Information Progress Notes * BETH ELIASDOB:01/1961 (64 yo F)Acc No.[id number]:05/18/2025 COLON WITH MAC Patient: Toby TOVAR BETH Provider: Toby Leblanc MD :1960 A ge:64 Y S ex:Female Date:05/18/2025 Address:[address] [place], [place] [phone] Pcp:Jolene Richter Subjective: * Chief Complaints: * S creening colon Billing Information: * Procedure Codes: * The named appointment provid er may or may not be the originator of this progress note, and it is not deemed complete until electronically signed by the appointment provider. Sign off status: Pending * Provider: Toby Leblanc MD Date: 0 05/18/2025 Generated for Dionna guerrier/Theresa/eTtansmitting on: 1 10/07/2024 05:21 PM EST
--- NOTE | 2025-08-06 13:19 | MHC.PC.OV ---
Vital Signs 08/06/25 13:20 Height 5 ft 2 in Weight 185 lb 4 oz BMI 33.9 BP 120/60 Blood Pressure Location Lt brachial Position Sitting Pulse 108 H Pulse Source Pulse Oximeter Temp 97.1 F Temp Source Temporal Artery Scan Pulse Oximetry (%) 96 Oxygen Delivery Method Room Air Intake Visit Reasons: follow up Intake Note: Patient is here to follow up on DM. Acute Care Certified Nursing Assistant Required: No Neurology Hospitalist: Not Required per policy Accompanied by: Self / Same As Patient Allergies Penicillins Allergy (Verified 08/06/25 13:32) Weakness Medication List - Last Reconciled 08/06/25 by Jolene Richter MD albuterol sulfate 90 mcg/actuation 2 puffs inhalation Q4-6H PRN blood sugar diagnostic (FreeStyle Lite Strips) Use 1 test strip once a day blood-glucose meter (FreeStyle Lite Meter kit) as directed cholecalciferol (vitamin D3) 50 mcg PO DAILY dapaglifloz propaned-metformin 10-1,000 mg ER (Xigduo XR) 1 tab PO DAILY dulaglutide (Trulicity) 0.75 mg (0.5 mL) subcut QWEEK lancets (FreeStyle Lancets) Use 1 lancet once a day lisinopril 5 mg PO DAILY loratadine 10 mg PO DAILY meclizine 25 mg PO BID PRN 5 days pioglitazone 45 mg PO DAILY pravastatin 40 mg PO DAILY Tobacco use date assessed: 08/06/25 Fall risk assessment: No Falls in past year Last assessed Fall Risk: 08/06/25 Dental Screening Dental Screen Date: 01/29/25 HPI HPI Comments History of Present Illness Details The patient is a 64 year old female presenting for chronic condition management. She has a history of type 2 diabetes managed with Xigduo once daily and pioglitazone 45 mg. An tipping machine operator automatic recommended adding Trulicity, which she did not start previously because she was undergoing a colonoscopy. Her HbA1c was 8.4 previously and is now 8.3. She reports having cravings for sweets at night. She has a history of intolerance to high-dose metformin and has previously tried Farxiga. Her medical history also includes hyperlipidemia, for which she takes pravastatin 40 mg. She has hypertension managed with lisinopril and an allergy to penicillin. She uses an albuterol inhaler as needed, takes vitamin D, and has meclizine for occasional dizziness. The patient recently had a normal colonoscopy, a normal bone density scan, and a mammogram two days ago with results pending. She received an influenza vaccine during the visit. [facility] Medical History (Updated 08/06/25 @ 14:12 by Jolene Richter MD) Hx of sleep apnea Fibromyalgia Obesity due to excess calories Hyperlipidemia associated with type 2 diabetes mellitus Vitamin D deficiency Dyslipidemia Hypertension CKD (chronic kidney disease) stage 3, GFR 30-59 ml/min Diabetic nephropathy associated with type 2 diabetes mellitus Diabetes type 2, controlled Surgical History Hx of foot surgery Hx of colonoscopy (2019) Hx of tubal ligation Family History Father No problems noted. Mother Cancer Social History (Updated 08/06/25 @ 13:40 by Jolene Richter MD) Housing: Apartment Are you a primary manager respiratory care to a significant other at home: No Alcohol intake: former Patient Tobacco Use Status: Never used Tobacco e-Cigarette/Vaping Use: Never Used Second Hand Smoke Exposure: No service: No Current occupational status: disabled Cognitive needs: No Hearing needs: No Vision needs: No Questionnaire Thrive Questionnaire Date Thrive assessed: 01/29/25 What is your living situation today?: I have a steady place to live Within the past 12 months, did the food you bought not last and you didn't have the money to get more?: Never true Within the past 12 months, did you worry whether your food would run out before you got money to buy more?: Never true Do you have trouble paying for medicines?: No Do you have trouble getting transportation to medical appointments?: No Do you have trouble paying your heating and electricity bill?: No Do you have trouble taking care of your child, family member or friend?: No Do you have trouble with day-to-day activities such as bathing, preparing meals, shopping, managing finances, etc.?: No Are you currently unemployed and looking for a job?: No Are you interested in more education?: No Please select the resources that you would like help with: None Currently or been in a relationship where the following occur: No concerns reported THRIVE Score: 0 ELYSE-7 AMB Questionnaire ELYSE-7 Date ELYSE - 7 assessed: 01/29/25 Source: Developed by Drs. Chris Coleman, Stacey Salguero, Rigo Cason and colleagues, with an educational oneal from [employer]. Review of Systems Const All systems reviewed & are unremarkable except as noted in HPI and below Card Denies chest pain at rest, Denies chest pain with activity, Denies edema, Denies irregular heart rhythm, Denies claudication, Denies dyspnea, Denies dyspnea on exertion, Denies orthopnea, Denies paroxysmal nocturnal dyspnea and Denies slow heart rate Resp Denies cough, Denies dyspnea and Denies dyspnea on exertion Physical exam (Primary Care) Vital Signs: Last Vital Signs Temp 97.1 F 08/06/25 13:20 Pulse 108 H 08/06/25 13:20 BP 120/60 08/06/25 13:20 Pulse Ox 96 08/06/25 13:20 Oxygen Delivery Method Room Air 08/06/25 13:20 BMI result Body Mass Index 33.9 BMI Assessment/Plan discussion: High BMI High, discussed plan: lifestyle, weight reduction, dietary and physical activity Tobacco/Smoking Status: Tobacco use Status Tobacco use date assessed 08/06/25 08/06/25 13:26 Patient Tobacco Use Status Never used Tobacco 08/06/25 13:26 Tobacco use type 01/29/25 16:28 e-Cigarette/Vaping Use Never Used 08/06/25 13:26 Thrive Assessment: Date of Thrive Assessment Date Thrive assessed 01/29/25 08/06/25 13:26 Currently or been in a relationship where the following occur: No concerns reported Resp Effort & Inspection: normal respiratory effort Auscultation: clear to auscultation bilaterally Cardio Jugular venous distension: no JVD Rate: regular rate Rhythm: regular rhythm Heart sounds: S1 normal heart sound present and S2 normal heart sound present Extrem General: Yes full ROM Office Procedures Flu Questionnaire Does the patient have a severe egg allergy?: No Does the patient have severe life threatening allergies?: No Does the patient have a fever or illness today?: No Has the patient ever had Guillain-Rosalia Syndrome?: No Has the patient ever had any past reaction to a flu shot?: No Results AMB Hemoglobin A1c AMB Hemoglobin A1c 8.3 % Last Edit by ZAFAR Adame on 08/06/25 13:32 Immunizations Fluarix [id number] (PF) 45 mcg (15 mcg x 3)/0.5 mL IM syringe Performing Provider: Jolene Richter MD Performing Location: [facility] Administered by: Jenny Gardiner LPN on 08/06/25 13:37 Dose Route Admin Location Dispensed Lot Number Expiration Date [place] Pathology Secretary/Transcriptionist 0.5 mL IM Left Deltoid 0.5 mL [id number] 02/16/26 [id number] [id number] VIS Given Date VIS Provided VIS Publication Date 08/06/25 Single Vaccine 24 Eligibility Eligibility Date Funding Source Not [facility] Eligible 08/06/25 Private Results Reviewed Results Reviewed: Laboratory Last Values Hgb A1c (Clinic) 8.3 % (4.0-6.0) H 08/06/25 13:19 Coding Level of Care Code Add On Preventative Visit Only Diagnoses Diabetes mellitus E11.9 Essential hypertension I10 Hyperlipidemia LDL goal <70 E78.5 Asthma J45.909 BPPV (benign paroxysmal positional vertigo) H81.10 Time Spent (min) 22 Assessment & Plan Assessment & Plan (1) Diabetes mellitus: Code(s): E11.9 - Type 2 diabetes mellitus without complications Category: Medical (2) Essential hypertension: Code(s): I10 - Essential (primary) hypertension Category: Medical (3) Hyperlipidemia LDL goal <70: Code(s): E78.5 - Hyperlipidemia, unspecified Category: Medical (4) Asthma: Code(s): J45.909 - Unspecified asthma, uncomplicated Category: Medical (5) BPPV (benign paroxysmal positional vertigo): Code(s): H81.10 - Benign paroxysmal vertigo, unspecified ear Category: Medical Plan Plan 1. Type 2 Diabetes Mellitus The patient's HbA1c remains elevated at 8.3%, indicating suboptimal glycemic control on her current regimen of Cigduo and pioglitazone. The plan is to initiate Trulicity, as previously recommended by her tipping machine operator automatic, in addition to her current medications. The addition of Trulicity is expected to lower her HbA1c and may also assist with weight loss and reducing cravings for sweets. New lab orders, including a urinalysis to check for proteinuria, will be placed. The patient was advised to complete her annual diabetic eye exam. 2. Health Maintenance The patient received her influenza vaccine today. She has completed a colonoscopy and bone density scan, both of which were normal. Results for a recent mammogram are pending. The patient will be scheduled for a urinalysis and labs before . 3. Vertigo The patient reports occasional dizziness, including a recent severe episode. 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 Dehydration may be a contributing factor. 4. Hyperlipidemia Continue pravastatin 40 mg for management of hyperlipidemia. Orders: Orders Vitamin B12 and Folate Today E53.8 - Deficiency of other specified B group vitamins AMB Hemoglobin A1c Today E11.29 - Type 2 diabetes mellitus with other diabetic kidney complication, R80.9 - Proteinuria, unspecified Influenza [id number] Immunization Today Z23 - Encounter for immunization Vitamin D 25-OH Total Today E55.9 - Vitamin D deficiency, unspecified Lipid Panel Today E78.5 - Hyperlipidemia, unspecified Microalbumin, Random (w Creat) Today R80.9 - Proteinuria, unspecified Comprehensive Jerome. Panel Fast Today E11.29 - Type 2 diabetes mellitus with other diabetic kidney complication, R80.9 - Proteinuria, unspecified
[2025-08-06 13:20] VITALS: BP 120/60; PULSE 108; TEMP 36.2; O2SAT 96; BMI 33.9
--- OUTSIDE RECORDS SUMMARY | 2025-08-06 17:22 | XMS_ITS | Clinical Summary ---
Author Organization [employer] Address [address] [place] [address] Care Team Providers Care Corporate Learning Consultant Name Role Phone Unavailable Primary Care Provider [...] age to complete this topic Insurance [facility] OPTIONS (O D-SNP) CAMILO RIVAS [id number]
--- OUTSIDE RECORDS SUMMARY | 2025-08-06 17:22 | XMS_ITS | Patient Health Record ---
Author Organization [facility] Address [address] [place] [address] Care Team Providers Care Quality Control Director Name Role Phone Jolene Stein Primary Care Provider Chris Lopez Unavailable [phone] Allergies Allergen (clinical drug ingredient) Drug/Non Drug Allergy documented on EMR Reaction Allergy Type Onset Date Status penicillin G Penicillin G Sodium Unknown Drug Allergy Active Results Component Value Reference Range Flag Notes Pathology (Not yet reviewed by provider) Interpretation: Performing Lab:[facility], [address] [place] [phone] Notes/Report: Glucose, Whole Blood Reviewed date:05/23/2025 11:20:05 PM Interpretation: Performing Lab:[facility], [address] [place] [phone] Notes/Report: Glucose, Whole Blood 172 60-115 mg/dL H MS TER #: [id number] Reason For Referral No Information Medications Medication [...] Problem Screening for malignant neoplasm of colon (496496399) Encounter for screening for malignant neoplasm of colon (Z12.11) Active confirmed Problem Preprocedural examination (573261282703396) Preprocedural examination (Z01.818) Active confirmed Problem Family History of Cancer of Colon (Situation) (525019634) Family history of colon cancer (Z80.0) Active confirmed Problem Right upper quadrant pain (372209817) Abdominal pain, RUQ (R10.11) Active confirmed Problem History of adenomatous polyp of colon (457000032) Hx of adenomatous colonic polyps (Z86.010) Active confirmed Problem Right upper quadrant pain (235373766) Abdominal pain, right upper quadrant (R10.11) Active confirmed Vital Signs Blood pressure diastolic 11 mm Hg 11/04/2024 Height 62 in 11/04/2024 Blood pressure systolic 111 mm Hg 11/04/2024 Weight 188 lbs 11/04/2024 BMI 34.38 kg/m2 11/04/2024 Procedures Procedure Date Ordered Date Performed Result Body Sit e COLONOSCOPY 11/04/2024 N/A Encounters Encounter Location Date Provider Diagnosis [facility] [address] [place] [id number] 05/18/2025 Chris Leblanc [facility] [address] [place] [address] 11/04/2024 Chris Leblanc Hx of adenomatous colonic polyps Z86.010 ; Preprocedural examination Z01.818 ; Encounter for screening for malignant neoplasm of colon Z12.11 and Family history of colon cancer Z80.0 [facility] [address] [place] [address] 11/04/2024 Chris Leblanc [facility] [address] [place] [address] 02/10/2025 Chris Leblanc [facility] [address] [place] [address] 02/16/2025 Chris Leblanc [facility] [address] [place] [address] 05/18/2025 Chris Leblanc Assessments Encounter Date Diagnosis [...] Insured Coverage Start Date Coverage End Date [facility] [address] Attn Claims CAMILO Jewell [id number] BETH ELIAS Self - patient is the insured MEDICAID OF [facility] [address] [place] [address] [id number] CURT BETH Self - patient is the insured Medical (General) History Medical History History ICD Code Screening colonoscopy 05-11-2008--1 small tubular adenoma removed NIDDM Hypertension Denies history of [place], stroke, kidney dis ease Asthma--seasonal Fibromyalgia Osteoarthritis Negative colonoscopy in 10/09 14 except for diverticulosis and internal hemorrhoids Hyperlipidemia History of sleep apnea Neg. abdominal U/S in 09/2018 Negative screening colonoscopy in 2018 Surgical History Surgery Date(Month/Year) Tubal ligation Foot surgery
== END 2025-08-06 13:44 | disposition home or self-care (01) ==
LOC: HO.HMCH 13:17
PROVIDERS: PCP Internal Medicine; Visit Provider Internal Medicine
DX: E11.29 Type 2 diabetes mellitus with other diabetic kidney complication (principal); I10 Essential (primary) hypertension; E78.5 Hyperlipidemia, unspecified; J45.909 Unspecified asthma, uncomplicated; H81.10 Benign paroxysmal vertigo, unspecified ear; R80.9 Proteinuria, unspecified; Z23 Encounter for immunization

== ENCOUNTER → 2025-08-06 13:16 | Outpatient (BNVA) | payer OTHER, SELFPAY | PROVIDERS: PCP Internal Medicine; Visit Provider Internal Medicine | DX: E11.29 Type 2 diabetes mellitus with other diabetic kidney complication (principal); E78.5 Hyperlipidemia, unspecified; I10 Essential (primary) hypertension; H81.10 Benign paroxysmal vertigo, unspecified ear; E53.8 Deficiency of other specified B group vitamins; R80.9 Proteinuria, unspecified; E55.9 Vitamin D deficiency, unspecified; Z23 Encounter for immunization; Z79.899 Other long term (current) drug therapy | CPT/HCPCS: 83036; 90471; 90656; 99212 ==